=== PATIENT | female | born 1965 | race Caucasian/White ===

== ENCOUNTER 2020-04-20 11:09 | Outpatient (REF) | payer OTHER, SELFPAY ==
[2020-04-20 11:11] VITALS: BP 156/99; PULSE 76; RESP 17; TEMP 36.2; O2SAT 99; BMI 34.5
--- NOTE | 2020-04-20 11:34 | RAD_ITS ---
STUDY: X-RAY - RIGHT HAND, ATTENTION SECOND FINGER REASON FOR EXAM: Smashed right second finger with slight hammer, laceration at DIP joint. TECHNIQUE: 3 view(s) of the finger were obtained. COMPARISON: None. FINDINGS: Normal metacarpal head. Normal metacarpophalangeal joint. Normal proximal phalanx. Normal middle phalanx. Normal distal phalanx. Normal proximal interphalangeal joint. There are marginal osteophytes and joint space narrowing of the distal interphalangeal joint. There is a laceration and soft tissue swelling at the radial aspect of the distal interphalangeal joint. RAD/Finger(s) Min 2 Views IMPRESSION: Arthrosis of the distal interphalangeal joint. Soft tissue injury. No demonstrated fracture. Electronically Signed: Jacob Flores MD at 12:00 EDT Tel , Service support ,
--- NOTE | 2020-04-20 11:36 | ED.VISSUMM ---
- ER Visit Summary Date of Service: 04/20/20 Chief Complaint: Right index finger laceration History of Present Illness: The patient is a 54 F who presents with right index finger injury that occurred today. Patient got her finger caught between a sledgehammer and a steel post. Patient states her pain is worse with movement. Patient describes her pain as throbbing and burning. Patient denies any paresthesias or weakness. Patient states her last tetanus was approximately 4 years ago. Patient denies any other injuries. Patient states the bleeding stopped after several minutes of pressure. Physical Examination: Vital signs are stable. Patient is afebrile. Patient is in no acute distress. Musculoskeletal exam reveals a 2 cm full-thickness linear laceration over the radial aspect of the right index finger over the DIP joint area. There is minimal gapping of the wound margins. There are no foreign bodies visualized. There is some mild tenderness over the middle phalanx but there is no tenderness over the distal phalanx. Sensation was intact light touch in all digits. Capillary refill was less than 2 seconds in all digits. Range of motion was slightly limited in flexion and extension of the DIP and PIP joint secondary to pain. Test Results: X-rays of the right index finger were obtained. There is no acute fracture. There are degenerative changes noted. This was interpreted by the radiologist and reviewed by myself. Emergency Department Course and Treatment: The wound was cleaned and irrigated with copious amounts of normal saline. The wound was anesthetized with 1% plain lidocaine via digital block and locally. The wound was closed with 6 simple interrupted #4-0 nylon sutures under sterile technique. Patient tolerated the procedure well. Bacitracin dressing was applied. Patient was instructed to keep the wound clean and dry. Patient was instructed to follow-up with her primary care physician in 7 days for wound recheck and suture removal. Patient understood and was agreeable with the plan. All questions were answered. Disposition: Discharge home Impression: Right index finger laceration This note was generated with [employer] dictation software. It may contain incorrect words, spelling, and punctuation that were not noted in review of the chart prior to signing ED Disposition - Plan for ED Patient: Disposition: Home or Assisted Living Diagnosis: Laceration of right index finger w/o foreign body w/o damage to nail Instructions: ED Laceration Hand Referrals: Dread Cedillo MD [Primary Care Provider] - 7 Days for suture removal
[2020-04-20] MEDS: BACITRACIN 15 GM Tube 1 APPLIC TOPICAL (11:51)
== END 2020-04-20 13:23 | disposition home or self-care (01) ==
LOC: ED 11:09
PROVIDERS: PCP Family Medicine; Visit Provider Emergency Medicine
DX: S61.210A Laceration without foreign body of right index finger without damage to nail, initial encounter (principal); W23.0XXA Caught, crushed, jammed, or pinched between moving objects, initial encounter; Y93.89 Activity, other specified; Y92.89 Other specified places as the place of occurrence of the external cause; Y99.0 Civilian activity done for income or pay
CPT/HCPCS: 12001; 73140

== ENCOUNTER → 2021-07-01 12:41 | Outpatient (CLI) | payer OTHER, SELFPAY ==
--- NOTE | 2021-07-01 12:44 | CT_ITS ---
STUDY: CT ABDOMEN AND PELVIS WITH CONTRAST REASON FOR EXAM: Female, 55 years old. Diverticulitis, pain RADIATION DOSAGE (If Supplied By Facility): CTDIvol = ( 19.86 ) mGy, DLP = ( 1251.35 ) mGycm TECHNIQUE: Transaxial images were obtained from the dome of the diaphragm to the symphysis pubis without oral contrast. Oral and amp; IV Readi-CAT and amp; 100mL Isovue-370 was administered. Sagittal and coronal images were reconstructed. Individualized dose optimization techniques were used for this CT. COMPARISON: 07/29/2050 FINDINGS: Left basilar platelike atelectasis versus linear scar. Diffuse hepatic steatosis. Unremarkable spleen, pancreas, adrenals, and bilateral kidneys. Gallbladder not seen and likely removed. Prior appendectomy. Bowel loops nonobstructed. Sigmoid diverticula noted with no CT evidence of acute diverticulitis. No free air or free fluid. No adenopathy. Vascular constipation with no abdominal aortic aneurysm. Status post left anterolateral lower abdominal wall hernia repair. Sections through the pelvis demonstrate evidence of prior hysterectomy. The urinary bladder is incompletely distended. Multilevel thoracolumbar spondylosis noted. L4 is a limbus vertebra. 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 CT/Abdomen/Pelvis WITH Contrast IMPRESSION: Distal colonic diverticulosis. No acute diverticulitis. Diffuse hepatic steatosis Electronically Signed: Scott Galan MD at 17:14 EST Tel , Service support ,
== END ==
PROVIDERS: PCP Family Medicine; Referring Provider Family Medicine; Visit Provider Family Medicine
DX: K57.92 Diverticulitis of intestine, part unspecified, without perforation or abscess without bleeding (principal); R19.8 Other specified symptoms and signs involving the digestive system and abdomen
CPT/HCPCS: 74177; Q9967

== ENCOUNTER 2021-09-03 11:26 | Day surgery (SDC) | payer SELFPAY ==
[2021-09-03] VITALS (7 sets, daily range): BP systolic 124–143; BP diastolic 64–99; PULSE 54–73; RESP 16–18; TEMP 36.2–37; O2SAT 98–100; BMI 33.8
[2021-09-03] MEDS: Lactated Ringers 1,000 ML 15 ML IV (12:04)
--- NOTE | 2021-09-03 12:30 | COLBX_PTH ---
PATIENT: CLEMENTE JENNINGS LOC: EN U#:[id number] AGE/SX: 55/F ROOM: RE09/03/[address]: Dr. Juwan Simms DO : 1965 BED: DIS: 09/03/2021 SPEC #: [id number] RECD: 09/03/21 20:20 STATUS: KELI JARROD #: [id number] BRANDI: 09/03/21 12:[address]: Juwan Simms DEPT: SURGICAL PATHOLOGY RECD BY: Linh Kaur ENTERED: 09/04/21 09:33 SP TYPE: COLON BX OT DR: Dr. Dread Cedillo MD Tissues: A - Small intestine biopsy B - COLON BIOPSY C - Transverse colon Procedures: Surgery Specimen Level IV HEADER OPERATION: Colonoscopy ? open access (MAC) PRE-OP DIAGNOSIS: Screening TISSUE SUBMITTED: A ? Small bowel biopsy, B ? Random colonic biopsy, C ? Transverse colon polyp biopsy MICROSCOPIC DIAGNOSIS A. Small bowel, biopsy: Fragments of small intestinal mucosa, no pathologic diagnosis. B. Colon, random biopsy: Fragments of colonic mucosa, no pathologic diagnosis. C. Transverse colon polyp, biopsy: Tubular adenoma. KEVIN:cuong 09/05/2021 MICROSCOPIC DESCRIPTION Slides are reviewed. GROSS DESCRIPTION A - Received in fixative is one container labeled with the patient's name and designated small bowel biopsy. The specimen consists of two irregular fragments of light bailey soft tissue that in aggregate measure 0.6 x 0.3 x 0.1 cm. The specimen is totally submitted in one cassette. B - Received in fixative is one container labeled with the patient's name and designated random colon biopsy. The specimen consists of multiple irregular fragments of light bailey soft tissue that in aggregate measure 2.5 x 1 x 0.1 cm. The specimen is totally submitted in one cassette. C - Received in fixative is one container labeled with the patient's name and designated transverse colon polyp biopsy. The specimen consists of one irregular fragment of light bailey soft tissue that measures 0.3 x 0.2 x 0.1 cm. The specimen is totally submitted in one cassette. / KEVIN:cuong 09/04/2021 TC:5 CPT: 05435 x3
--- NOTE | 2021-09-03 12:49 | PCM.HP.BLA ---
History and Physical Date of Admission: 09/03/21 55 y/o F w/ PMHx: GERD, Obesity, Prior Tobacco use history, Diverticulosis, Anxiety and Depression who presents for a a colonoscopy. She is not have any abdominal pain. She does have a past medical history of diverticulosis and does get intermittent constipation. She is not having any problems at this time. She does not have any nausea. She is not having any chest pain or shortness of breath. Overall she is in very good health. Past Medical History Past Medical History (Chronic Problems): Chronic Problems Anxiety and depression (Chronic) Obesity (BMI 30.0-34.9) (Chronic) GERD (gastroesophageal reflux disease) (Chronic) Allergies codeine Allergy morphine Allergy phenazopyridine HCl sulfamethoxazole trimethoprim Other Surgical History: - - Surgeries have included tonsillectomy, hysterectomy, surgery for adhesions w/ partial colon resection per patient report, 2 back surgeries, ankle surgery, 3-4 exploratory laparotomies. 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 Denies: Fever, Weight Change HEENT: Denies: Head Aches, Sinus Congestion, Sinus Drainage Cardiovascular: Denies: Chest Pain, Palpitations Respiratory: Denies: Cough, Shortness of breath at rest, Sputum production Gastrointestinal: Reports: Abdominal Pain, Constipation, Diarrhea, Nausea, Vomiting Genitourinary: Denies: Dysuria Musculoskeletal: Denies: Joint Pain, Joint Tenderness Skin: Denies: Rash, Wounds Neurological: Denies: Numbness, Tingling, Focal weakness Psychiatric: Denies: Anxiety, Depression, Homicidal Ideations, Suicidal Ideations Hematologic/ Lymphatic: Denies: Easy Bruising, Easy Bleeding Physical Examination: General: awake, alert, oriented x 3 and cooperative, seated upright in ED bed, no acute distress. Skin: normal color, turgor, no icterus, cyanosis. HEENT: AT/NC, EOMI, PERRLA, mildly dry MM, no carotid bruits or JVD noted. Lungs: CTA BL, normal effort, decreased mild BL bases, no W/C/R. Heart: Regular rate and rhythm; no gallop, rub audible. Abdomen: soft, obese, Extremities: no cyanosis, clubbing, or edema. Neurological: patient awake, alert, oriented x 3; Psychiatric: affect appears normal, no acute evidence of depressive or anxiety feelings. Assessment and plan: 55-year-old arrives here for colonoscopy. She was explained alternatives, risk, benefits including not withstanding bleeding, infection, sepsis, perforation, need for emergency or . She have an ASA of 1.
--- NOTE | 2021-09-03 13:33 | OP.COLON_ITS ---
Patient Name: Renetta Plaza Procedure Date: 09/03/2021 12:45 PM Date of : 1965 Age: 55 Procedure: Colonoscopy Indications: Chronic diarrhea Providers: Juwan Simms DO Medicines: See the Anesthesia note for documentation of the administered medications Patient Profile: This is a 55 year old female. Refer to note in patient chart for documentation of history and physical. Last Colonoscopy: several years ago. Complications: No immediate complications. Procedure: Pre-Anesthesia Assessment: - Prior to the procedure, a History and Physical was performed, and patient medications and allergies were reviewed. The patient is competent. The risks and benefits of the procedure and the sedation options and risks were discussed with the patient. All questions were answered and informed consent was obtained. Patient identification and proposed procedure were verified by the physician. Mental Status Examination: normal. Airway Examination: normal oropharyngeal airway and neck mobility. Respiratory Examination: clear to auscultation. CV Examination: normal. Prophylactic Antibiotics: The patient does not require prophylactic antibiotics. Prior Anticoagulants: The patient has taken no previous anticoagulant or antiplatelet agents. After reviewing the risks and benefits, the patient was deemed in satisfactory condition to undergo the procedure. The anesthesia plan was to use moderate sedation / analgesia (conscious sedation). Immediately prior to administration of medications, the patient was re-assessed for adequacy to receive sedatives. The heart rate, respiratory rate, oxygen saturations, blood pressure, adequacy of pulmonary ventilation, and response to care were monitored throughout the procedure. The physical status of the patient was re-assessed after the procedure. After I obtained informed consent, the scope was passed under direct vision. Throughout the procedure, the patient's blood pressure, pulse, and oxygen saturations were monitored continuously. The pediatric colonoscope was introduced through the anus and advanced to the ileocolonic anastomosis. The colonoscopy was performed without difficulty. The patient tolerated the procedure well. The quality of the bowel preparation was good. Moderate Sedation: Moderate (conscious) sedation was administered by the endoscopy nurse and supervised by the endoscopist. The following parameters were monitored: oxygen saturation, heart rate, blood pressure, and response to care. Total physician intraservice time was 15 minutes. Scope In: 12:58:45 PM Scope Out: 1:17:32 PM Total Procedure Duration Time 0 hours 18 minutes 47 seconds Findings: There was evidence of a prior end-to-side ileo-colonic anastomosis in the ascending colon. This was patent and was characterized by healthy appearing mucosa. The anastomosis was traversed. Biopsies were taken with a cold forceps for histology. Verification of patient identification for the specimen was done. Estimated blood loss was minimal. An area of mildly congested mucosa was found in the sigmoid colon, in the descending colon, in the transverse colon and at the hepatic flexure. Biopsies were taken with a cold forceps for histology. Verification of patient identification for the specimen was done. Estimated blood loss was minimal. A 5 mm polyp was found in the transverse colon. The polyp was sessile. The polyp was removed with a hot snare. Resection and retrieval were complete. Verification of patient identification for the specimen was done. Estimated blood loss was minimal. Impression: - Patent end-to-side ileo-colonic anastomosis, characterized by healthy appearing mucosa. Biopsied. - Congested mucosa in the sigmoid colon, in the descending colon, in the transverse colon and at the hepatic flexure. Biopsied. - One 5 mm polyp in the transverse colon, removed with a hot snare. Resected and retrieved. Recommendation: - Repeat colonoscopy in 5 years for surveillance based on pathology results. - Return to GI office in 2 weeks. - Continue present medications. - - Use Colestipol at [1gm] [PO] [BID] [60 days]. Procedure Code(s): --- Professional --- 61041, Colonoscopy, flexible; with removal of tumor(s), polyp(s), or other lesion(s) by snare technique 76132, 59, Colonoscopy, flexible; with biopsy, single or multiple 10000, 59, Moderate sedation services provided by the same physician or other qualified health dog day care attendant performing the diagnostic or therapeutic service that the sedation supports, requiring the presence of an independent trained observer to assist in the monitoring of the patient's level of consciousness and physiological status; initial 15 minutes of intraservice time, patient age 5 years or older CPT copyright 2017 [employer]. All rights reserved. The codes documented in this report are preliminary and upon medical biller/coder review may be revised to meet current compliance requirements. Juwan Simms DO 09/03/2021 1:32:40 PM This report has been signed electronically. Number of Addenda: 1 Note Initiated On: 09/03/2021 12:45 PM Addendum Number: 1 Addendum Date: 04/24/2022 6:14:53 AM MAC was used instead of moderate sedation for the patient. Juwan Simms, 04/24/2022 6:14:57 AM This report has been signed electronically.
--- NOTE | 2021-09-03 13:33 | OP.CCLET_ITS ---
04/24/2022 Dread Cedillo Re : Colonoscopy procedure for Renetta Plaza Dear Nguyen This procedure was performed on Friday, September 03, 2021. My impressions and recommendations are as follows: Impressions : - Patent end-to-side ileo-colonic anastomosis, characterized by healthy appearing mucosa. Biopsied. - Congested mucosa in the sigmoid colon, in the descending colon, in the transverse colon and at the hepatic flexure. Biopsied. - One 5 mm polyp in the transverse colon, removed with a hot snare. Resected and retrieved. Recommendations : - Repeat colonoscopy in 5 years for surveillance based on pathology results. - Return to GI office in 2 weeks. - Continue present medications. - - Use Colestipol at [1gm] [PO] [BID] [60 days]. My findings are described in the full procedure note, which is enclosed. If I can be of further assistance, please feel free to contact me at . Sincerely, Juwan Simms, 09/03/2021 1:32:40 PM This report has been signed electronically.
--- NOTE | 2021-09-03 14:06 | SUR.PHASEII ---
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
== END 2021-09-03 23:59 | disposition home or self-care (01) ==
LOC: EN 11:27 → AC 11:28
PROVIDERS: PCP Family Medicine; Referring Provider Family Medicine; Visit Provider Internal Medicine Gastroenterology
PROC: 0DJD8ZZ Inspection of Lower Intestinal Tract, Via Natural or Artificial Opening Endoscopic (ICD-10-PCS; CPT 45378; principal; 2021-09-03 12:25)
DX: Z12.11 Encounter for screening for malignant neoplasm of colon (principal); D12.3 Benign neoplasm of transverse colon; Z87.891 Personal history of nicotine dependence; M19.90 Unspecified osteoarthritis, unspecified site; Z87.19 Personal history of other diseases of the digestive system; G25.81 Restless legs syndrome; Z90.49 Acquired absence of other specified parts of digestive tract; K21.9 Gastro-esophageal reflux disease without esophagitis; K52.9 Noninfective gastroenteritis and colitis, unspecified
CPT/HCPCS: 45385; 45380; 87426; 88305; J7120; J2405

== ENCOUNTER 2021-11-27 11:44 | Emergency (ER) | payer SELFPAY ==
[2021-11-27 11:45] VITALS: BP 140/102; PULSE 176; RESP 16; TEMP 35.9; O2SAT 97; BMI 33.5
[2021-11-27] MEDS: Adenosine 6 MG/2 ML Syringe IV (11:50)
--- NOTE | 2021-11-27 11:51 | NURSING ---
1150 6 mg adenosine given with return to NSR 92 BPM 121/93 13 94% room air Dr. Gilman at bedside along w/ RT medic and 2 RNs
--- NOTE | 2021-11-27 11:59 | EKG12_ITS ---
Test Reason : REPEAT Blood Pressure : / mmHG Vent. Rate : 098 BPM Atrial Rate : 098 BPM P-R Int : 122 ms QRS Dur : 086 ms QT Int : 330 ms P-R-T Axes : -24 -21 187 degrees QTc Int : 421 ms Normal sinus rhythm Normal ECG Confirmed by ASHLYN GARCIA, WILLIE ([id number]), development editor ABEL MISHRA ([id number]) on 11/29/2021 12:55:00 P M Referred By: YENY Confirmed By:BRANDON GOLDBERG MD
[2021-11-27 12:00] VITALS: BP 145/78; PULSE 82; RESP 11; O2SAT 92
--- NOTE | 2021-11-27 12:00 | EKG12_ITS ---
Test Reason : PALPS Blood Pressure : / mmHG Vent. Rate : 169 BPM Atrial Rate : 174 BPM P-R Int : 000 ms QRS Dur : 080 ms QT Int : 278 ms P-R-T Axes : 000 -30 230 degrees QTc Int : 466 ms Supraventricular tachycardia Left axis deviation Marked ST abnormality, possible lateral subendocardial injury Abnormal ECG Confirmed by ASHLYN GARCIA, WILLIE ([id number]), marketing editor ABEL MISHRA ([id number]) on 11/29/2021 12:55:15 P M Referred By: YENY Confirmed By:BRANDON GOLDBERG MD
[2021-11-27 12:11] LABS: Absolute Lymphocyte Count 4.19 X10^3/uL (0.83-4.51); Basophil# 0.03 X10^3/uL; Basophil% 0.3 % (0-1); Eosinophil# 0.16 X10^3/uL; Eosinophils% 1.8 % (0-5); Hematocrit 44.5 % (37-47); Hemoglobin 14.7 g/dL (12.0-15.0); Lymphocyte # 4.19 X10^3/ul (0.83-4.51); Lymphocyte % 46.1 % (19-41); Mean Corpuscular Hgb 30.4 pg (27.0-32.0); Mean Corpuscular Volume 92.1 fL (81-99); Mean Platelet Vol. 9.6 fl (6.2-12.0); Monocyte% 7.7 % (0-10); NRBC Flagged by Analyzer 0 % (0-5); Neutrophil # 3.98 X10^3/uL (2.7-7.7); Neutrophil % 43.9 % (47-70); Platelet Count 342 K/mm3 (150-450); RBC Distribution Width CV 13.2 % (11.6-14.6); RBC Distribution Width SD 44.4 fl (35.1-43.9); Red Blood Count 4.83 M/mm3 (4.2-5.4); White Blood Count 9.1 K/mm3 (4.4-11.0)
--- NOTE | 2021-11-27 12:24 | EX.ED.DYSGE1 ---
HPI History of Present Illness Chief Complaint: Palpitations Informant: patient Narrative Narrative: Patient presents from hospital [facility] sudden onset of lightheadedness and palpitations while eating. No syncopal episodes. No chest pain. She has had intermittent palpitations for the past 2 years however it has been more frequent over the last 2 months having it every 2 weeks the last time was 2 weeks ago. She saw her PCP has a scheduled follow-up with Dr. Lindo, also has a planned Holter monitor. No diagnosed dysrhythmias in the past. She denies any recent cough, denies recent vomiting or diarrhea. She does not take any daily medicines states occasional multivitamins. Prior similar symptoms: Yes PFSH PFSH Medical History Anxiety Arthritis Back pain Back pain Cancer Cardiology follow-up encounter Chest pain Encounter for screening for malignant neoplasm of colon Former smoker Heartburn History of diverticulitis History of IBS History of palpitations History of rheumatic fever History of ulceration Hx of fracture of ankle Laceration of right index finger w/o foreign body w/o damage to nail Leg cramps Migraine headache Neck pain Restless legs Shortness of breath on exertion Wears dentures Wears glasses Home Medications hyoscyamine sulfate 0.125 mg sublingual tablet 0.125 mg PO BID-QID PRN #30 tab 09/24/21 [Rx Last Taken Unknown] Allergy/AdvReac Type Severity Reaction Status Date / Time morphine Allergy Anaphylaxis Verified 11/27/21 11:57 phenazopyridine HCl Allergy Other Verified 11/27/21 11:57 [From Pyridium] sulfamethoxazole Allergy Other Verified 11/27/21 11:57 [From Septra] trimethoprim [From Septra] Allergy Other Verified 11/27/21 11:57 Family History Mother Diabetes Heart disease Surgical History History of ankle surgery History of back surgery History of cholecystectomy History of colonoscopy History of exploratory laparotomy History of partial hysterectomy Hx of appendectomy Hx of colonoscopy Hx of hernia repair Hx of hysterectomy, total Hx of lumbar discectomy Hx of tonsillectomy Social History Smoking Status: Former smoker ROS ROS ED Constitutional Constitutional ED: Denies chills, fever(s) or sweats Eyes Eyes: Denies change in vision ENT ENT ED: Denies dysphagia or sore throat Cardiovascular Cardiovascular: Reports palpitations; Denies chest pain, leg edema or racing heartbeat Respiratory/Chest Respiratory/Chest: Denies cough, dyspnea or dyspnea on exertion Gastrointestinal Gastrointestinal: Denies abdominal pain, diarrhea, nausea or vomiting Genitourinary Genitourinary ED: Denies dysuria, hematuria or urinary frequency Musculoskeletal Musculoskeletal: Denies back pain, extremity pain or neck pain Integumentary Denies rash or wounds Neurologic Neurologic: Denies headache(s), paresthesias or weakness EXAM Physical Exam Const Vital Signs: 11/27/21 11:45 11/27/21 12:00 11/27/21 13:26 Temperature 96.6 F L Temperature Source Temporal Pulse Rate 176 H 82 80 Respiratory Rate 16 11 L 18 Blood Pressure 140/102 H 145/78 H 139/69 H Blood Pressure Mean 114 100 Pulse Ox 97 92 99 Oxygen Delivery Method Room Air Room Air Positive well nourished and well developed General Appearance ED: well developed and NAD HEENT Reports moist mucous membranes normocephalic and atraumatic Eyes PERRL, EOMs intact bilaterally and conjunctivae normal General Eye ED: Yes normal appearance of both eyes Neck no lymphadenopathy and supple General: Negative for tenderness Chest Wall Chest: Negative for tenderness Resp normal respiratory effort and normal air movement Effort and Inspection: symmetric chest movement; Negative for respiratory distress Cardio regular rhythm and no murmurs Rate: tachycardic Peripheral Pulses: pulses 2+ throughout GI normal to inspection, nondistended, normoactive bowel sounds and non-tender Palpation: Negative for guarding or rebound tenderness present Back/Spine no CVA tenderness and no thoracic nor lumbar tenderness Extremity normal to inspection General Extremety ED: Negative for edema or tenderness General Extremity: Negative for edema Neuro oriented x3 and no sensory deficits noted Sensorium / Orientation: awake and alert Skin no rashes or lesions noted and no wounds MDM MDM MDM Narrative Medical decision making narrative: Patient presenting with tachycardia narrow complex on the monitor, confirming concerns for SVT on EKG. Attempted Valsalva maneuvers bedside with no success. AP defibrillator pads were placed, she was given 6 mg of Adenocard, observe she cardioverted back into normal sinus rhythm confirmed by EKG. She had ST depression lateral leads with SVT likely demand ischemia which resolved. Patient lab work with electrolytes are all normal. Remains asymptomatic. Back to normal. I discussed with on-call financial health counselor Dr. Mclean, states would be no difference if beta-jennyfer was started due to SVT rhythm. No medications are to be started at this time. She did not need a Holter monitor at this time. She will keep her follow-up with Dr. Lindo as an outpatient. Return precautions discussed. All questions were answered. Lab Data Attestation: I reviewed the patient's lab results. Labs: Laboratory Results - last 24 hr 11/27/21 11/27/21 11:45 11:45 WBC 9.1 RBC 4.83 Hgb 14.7 Hct 44.5 MCV 92.1 MCH 30.4 MCHC 33.0 RDW Std Deviation 44.4 H RDW Coeff of Robi 13.2 Plt Count 342 MPV 9.6 Immature Gran % (Auto) 0.200 Neut % (Auto) 43.9 L Lymph % (Auto) 46.1 H Dubois % (Auto) 7.7 Eos % (Auto) 1.8 Baso % (Auto) 0.3 Absolute Neuts (auto) 4.0 Absolute Lymphs (auto) 4.19 Nucleated RBC % 0 Sodium 139 Potassium 3.8 Chloride 106 Carbon Dioxide 28.0 Anion Gap 5 BUN 16 Creatinine 1.02 Estim Creat Clear Calc 62.83 Est GFR (MDRD) Af Amer 72 Est GFR (MDRD) Non-Af 59 L BUN/Creatinine Ratio 15.7 Glucose 104 Calcium 9.2 Magnesium 2.2 TSH 1.42 EKG Initial EKG: Attestation: I personally reviewed and interpreted this EKG as follows: Comments: SVT rate of [address] or T wave changes. Follow-up EKG: Attestation: I personally reviewed and interpreted this EKG as follows: Comments: Sinus rhythm rate of 98, no ST or T wave changes. Discharge Plan Triage Chief Complaint: Palpitations ED Provider: Nuno Gilman Dx/Rx/DC Orders Clinical Impression: SVT (supraventricular tachycardia), Encounter for cardioversion procedure, Palpitation Instructions: ED Understanding Supraventricular Tachycardia (SVT), Supraventricular Tachycardia Prescriptions: No Action hyoscyamine sulfate [Levsin/SL] 0.125 mg tablet, sublingual 0.125 mg PO BID-QID PRN (Reason: dyspepsia) Qty: 30 RF: 1 Primary Care Provider: Dread Cedillo Referrals: Fredis Lindo MD [STAFF PHYSICIAN] - Keep Radha appointment Dread Cedillo MD [Primary Care Provider] - Activity Restrictions/Additional Instructions: You had SVT on EKG converted with 6 mg of adenosine. Your labs are all normal. Keep your follow-up with Dr. Lindo. Disposition Disposition: Home, Self Care Discharge Date/Time: 11/27/21 13:27
[2021-11-27 12:32] LABS: Anion Gap 5 (5-15); BUN 16 mg/dL (7-18); BUN/Creat Ratio 15.7 RATIO (10-20); Calcium,Total 9.2 mg/dL (8.5-10.1); Chloride 106 mmol/L (98-107); Creatinine, Serum 1.02 mg/dL (0.55-1.02); EST Glomerular Filtration Rate 59 mL/min (>60); Est Glom Filt Rate - Afr Amer 72 mL/min (>60); Estimated Creatinine Clearance 62.83 ml/min; Glucose 104 mg/dL (74-106); Magnesium 2.2 mg/dL (1.6-2.6); Potassium 3.8 mmol/L (3.5-5.1); Sodium Level 139 mmol/L (136-145); Thyroid Stim Hormone (TSH) 1.42 uIU/mL (0.358-3.74)
[2021-11-27 13:26] VITALS: BP 139/69; PULSE 80; RESP 18; O2SAT 99
== END 2021-11-27 13:27 | disposition home or self-care (01) ==
PROVIDERS: Emergency Provider Emergency Medicine; PCP Family Medicine; Visit Provider Emergency Medicine
DX: I47.1 Supraventricular tachycardia (principal); R00.2 Palpitations; M19.90 Unspecified osteoarthritis, unspecified site; Z87.891 Personal history of nicotine dependence; Z87.19 Personal history of other diseases of the digestive system
CPT/HCPCS: 80048; 83735; 84443; 85025; 93005; 96374; 99285; A4216; J0153

== ENCOUNTER → 2021-12-30 | Outpatient (CLI) | payer SELFPAY ==
--- NOTE | 2021-12-30 06:05 | ECHOD_ITS ---
Reason For Study: Arrhythmia Procedure This was a 2D Doppler, Color Flow transthoracic echocardiogram. The exam was of adequate technical quality. Exam performed in department. Left Ventricle Normal LV size. Left ventricular systolic function is normal. The estimated ejection fraction is 65 %. No evidence for diastolic dysfunction. No regional wall motion abnormalities noted. Right Ventricle Normal RV size. Normal systolic function. Atria Normal left atrium. Normal right atrium. No doppler evidence for ASD. Mitral Valve There is no mitral annular calcification. Normal mitral valve. Mild (1+) mitral valve insufficiency. Tricuspid Valve Normal tricuspid valve. Mild tricuspid valve insufficiency. Right ventricular systolic pressure estimated to be 29 mmHg. Aortic Valve Trisinus/trileaflet aortic valve. Mild focal aortic valve calcification. Pulmonic Valve The pulmonic valve is not well visualized. Great Vessels Normal sized aortic root. Pericardium/Pleural No pericardial effusion. MMode/2D Measurements & Calculations LVIDd: 4.7 cm IVSd: 1.00 cm Ao root diam: 3.3 cm LVIDs: 2.7 cm LVPWd: 0.93 cm RVDd: 2.2 cm FS: 43.0 % LAV(MOD-bp): 33.7 ml LVAd ap4: 22.1 cm2 SV(MOD-sp4): 36.7 ml LAV(MOD-bp) Indexed: 15.9 ml/m2 LVLd ap4: 7.2 cm LAV(MOD-sp2): 29.6 ml EDV(MOD-sp4): 55.5 ml LAV(MOD-sp4): 36.8 ml EDV(sp4-el): 57.3 ml LVAs ap4: 11.2 cm2 LVLs ap4: 5.5 cm ESV(MOD-sp4): 18.8 ml ESV(sp4-el): 19.2 ml EF(MOD-sp4): 66.2 % EF(sp4-el): 66.5 % SV(sp4-el): 38.1 ml LA A4 area: 15.7 cm2 LA dimension(2D): 3.7 cm RA A4 area: 10.7 cm2 Doppler Measurements & Calculations MV E max ubaldo: 81.2 cm/sec Lat Peak E' Ubaldo: 10.6 cm/sec Med Peak E' Ubaldo: 6.1 cm/sec MV A max ubaldo: 93.6 cm/sec E/E' lat: 7.7 E/E' med: 13.4 MV E/A: 0.87 Ao V2 max: 143.4 cm/sec LV V1 max: 97.0 cm/sec PA V2 max: 101.6 cm/sec Ao max P.2 mmHg LV V1 max P.8 mmHg Ao V2 mean: 106.8 cm/sec Ao mean P.9 mmHg Ao V2 VTI: 35.6 cm TR max ubaldo: 255.8 cm/sec TR max P.2 mmHg ECHO/Echo Complete Interpretation Summary Left ventricular systolic function is normal. The estimated ejection fraction is 65 %. Mild (1+) mitral valve insufficiency. Mild tricuspid valve insufficiency. Mild focal aortic valve calcification. Right ventricular systolic pressure estimated to be 29 mmHg. No evidence for diastolic dysfunction. Ordering Physician: Fredis Lindo Referring Physician: Dread Cedillo Performed By: Kitty De, IMELDA, RVT
--- NOTE | 2021-12-30 08:05 | STRESSREP ---
Stress Test Report Date: 12-30-2021 Procedure: Pharmacologic stress nuclear imaging study Indications: Chest pain; SVT Consent: Per the patient Procedure: The patient underwent pharmacologic (Regadenoson 0.4mg ) evaluation with a peak heart rate of 90 beats per minute (55%predicted maximal heart rate) and a peak blood pressure of 128/80 mmHg. The baseline ECG demonstrated sinus bradycardia; low voltage QRS; poor R wave progression. The peak pharmacologic ECG demonstrated no obvious ECG changes. There was an isolated PVC during infusion. There was no complaint of chest discomfort during pharmacologic infusion or recovery. The examination was discontinued secondary to completion of protocol. Impression: 1. Pharmacologic (Regadenoson) evaluation 2. Peak pharmacologic ECG with no obvious ECG changes. 3. There was an isolated PVC during infusion. 4. Nuclear images pending Myocardial perfusion imaging study: Technique: The patient was injected with 14.6 millicuries of technetium 99m Cardiolite and subsequently rest SPECT Cardiolite nuclear imaging was obtained in the horizontal long, vertical long, and short axis views. The patient underwent pharmacologic (Regadenoson) evaluation with a peak heart rate of 90 beats per minute (55% percent predicted maximal heart rate) and a peak blood pressure of 128/80 mmHg. The patient was injected with 44.3 millicuries of technetium 99m Cardiolite and subsequently stress SPECT Cardiolite nuclear imaging was obtained in the horizontal long, vertical long, and short axis views. A gated Cardiolite study at peak stress was obtained. Interpretation: Rest and stress SPECT Cardiolite nuclear imaging status post realignment, normalization, and attenuation correction demonstrate relative uniform tracer uptake and myocardial perfusion appearing within normal limits. There is end systolic thickening and brightening. The gated Cardiolite study demonstrates myocardial thickening and inward wall motion. The reported LVEF is 63%. Impression: 1. Rest and stress SPECT Cardiolite nuclear imaging demonstrate relative uniform tracer uptake and myocardial perfusion appearing within normal limits. 2. The gated Cardiolite study reports an LVEF of 63%. This note was generated with Niblitzation software. It may contain incorrect words, spelling, and punctuation that were not noted in checking the note before signing.
== END | disposition home or self-care (01) ==
LOC: CVS 06:04
PROVIDERS: PCP Family Medicine; Visit Provider Internal Medicine Cardiovascular Disease
DX: R07.9 Chest pain, unspecified (principal); I47.1 Supraventricular tachycardia; R00.2 Palpitations
CPT/HCPCS: 78452; 93017; 93306; A9500; A4216; J2785

== ENCOUNTER → 2022-01-22 | Outpatient (CLI) | payer SELFPAY ==
[2022-01-22 14:01] LABS: Hematocrit 39.7 % (37-47); Hemoglobin 13.3 g/dL (12.0-15.0); Mean Corp Hgb Conc 33.5 g/dL (32-36); Mean Corpuscular Hgb 31.3 pg (27.0-32.0); Mean Corpuscular Volume 93.4 fL (81-99); Mean Platelet Vol. 9.5 fl (6.2-12.0); Platelet Count 287 K/mm3 (150-450); RBC Distribution Width CV 12.9 % (11.6-14.6); RBC Distribution Width SD 44.3 fl (35.1-43.9); Red Blood Count 4.25 M/mm3 (4.2-5.4); White Blood Count 5.9 K/mm3 (4.4-11.0)
[2022-01-22 14:34] LABS: Anion Gap 6 (5-15); BUN 19 mg/dL (7-18); BUN/Creat Ratio 18.1 RATIO (10-20); Calcium,Total 9.2 mg/dL (8.5-10.1); Chloride 104 mmol/L (98-107); Creatinine, Serum 1.05 mg/dL (0.55-1.02); EST Glomerular Filtration Rate 57 mL/min (>60); Est Glom Filt Rate - Afr Amer 69 mL/min (>60); Glucose 107 mg/dL (74-106); Magnesium 2.1 mg/dL (1.6-2.6); Potassium 3.7 mmol/L (3.5-5.1); Sodium Level 137 mmol/L (136-145); Thyroid Stim Hormone (TSH) 1.11 uIU/mL (0.358-3.74)
== END | disposition home or self-care (01) ==
LOC: LAB 13:41
PROVIDERS: PCP Family Medicine; Referring Provider Nurse Practitioner Family; Visit Provider Nurse Practitioner Family
DX: I47.1 Supraventricular tachycardia (principal); R00.2 Palpitations; R06.02 Shortness of breath; G47.00 Insomnia, unspecified; R53.83 Other fatigue
CPT/HCPCS: 36415; 80048; 83735; 84436; 84443; 85027

== ENCOUNTER → 2022-01-24 | Outpatient (CLI) | payer SELFPAY | END | disposition home or self-care (01) | LOC: PSN 09:07 | PROVIDERS: PCP Family Medicine; Referring Provider Nurse Practitioner Family; Visit Provider Nurse Practitioner Family | DX: I47.1 Supraventricular tachycardia (principal); R06.02 Shortness of breath; R53.83 Other fatigue; R00.2 Palpitations | CPT/HCPCS: 93225; 93226 ==

== ENCOUNTER → 2022-06-26 | Outpatient (CLI) | payer SELFPAY ==
--- NOTE | 2022-06-26 07:28 | RAD_ITS ---
STUDY: X-RAY - PELVIS REASON FOR EXAM: Female, 56 years old. Pelvic pain. TECHNIQUE: One view of the pelvis was obtained. COMPARISON: None. FINDINGS: There is a non-specific bowel gas pattern. Postsurgical changes in the mid pelvis, left lower abdomen and right mid abdomen. Mild arthrosis of both sacroiliac joints. Normal visualized bilateral superior and inferior pubic rami. Normal pubic symphysis. Normal ischial tuberosities. Mild arthrosis of both hips. RAD/Pelvis 1 or 2 Views IMPRESSION: Mild arthrosis of the sacroiliac joints and both hips. No acute abnormality, evidence of erosive changes or fusion. Electronically Signed: Jovon Aguilera, at 9:41 EST ,
--- NOTE | 2022-06-26 07:35 | RAD_ITS ---
STUDY: X-RAY - LEFT FEMUR REASON FOR STUDY: Female, 56 years old. Left pelvic and hip pain. TECHNIQUE: 4 view(s) of the femur. COMPARISON: None. FINDINGS: Normal visualized femur. Mild arthrosis of the left hip and the medial and lateral femorotibial compartments. Small knee joint effusion. RAD/Femur Min 2 Views IMPRESSION: Mild arthrosis of the hip and knee with small knee joint effusion. No acute abnormality or erosive changes. Electronically Signed: Jovon Aguilera, at 9:43 EST ,
== END | disposition home or self-care (01) ==
LOC: RAD 07:27
PROVIDERS: PCP Family Medicine; Visit Provider Internal Medicine Gastroenterology
DX: K40.90 Unilateral inguinal hernia, without obstruction or gangrene, not specified as recurrent (principal); R10.9 Unspecified abdominal pain; M25.551 Pain in right hip
CPT/HCPCS: 72170; 73552

== ENCOUNTER → 2023-06-24 | Outpatient (CLI) | payer OTHER, SELFPAY ==
--- NOTE | 2023-06-24 09:44 | US_ITS ---
STUDY: ABDOMINAL ULTRASOUND - RIGHT UPPER QUADRANT; ELASTOGRAPHY REASON FOR VISIT: Female, 57 years old. NAFLD. TECHNIQUE: Ultrasound evaluation of the right upper quadrant was performed with real-time and static heart-scale imaging. Point quantification shear wave elastography was performed (Sara Campbell). TECHNICAL QUALITY: Adequate. COMPARISON: Comparison is made with prior examination July 16, 2013. FINDINGS: Liver: The liver measures 15.4 cm. There is increased echogenicity consistent with fatty infiltration. The bile ducts are within normal limits. There is hepatic color flow. The direction of portal flow is hepatopetal. There is no demonstrated mass lesion. Median liver stiffness measured 7.2 kPa. Gallbladder: The patient is status post cholecystectomy. Common Bile Duct (C.B.D.): The common bile duct measures 5.4 mm. Pancreas: There is increased echogenicity of the pancreas. There is no demonstrated pancreatic mass or cyst. Right Kidney: Normal size of the right kidney. The right kidney measures 9.8 cm x 5.4 cm x 4.8 cm. Normal renal cortex. The right cortex measures 1.2 cm. There is no demonstrated renal mass or cyst. There is no right hydronephrosis. US/ABD Limited w/ Elastography IMPRESSION: 1. Liver stiffness measures 7.2 kPa compatible with F2-F3 (Mild to moderate liver fibrosis) Metavir score. Electronically Signed: Asaf Madden MD at 15:17 EST ,
== END | disposition home or self-care (01) ==
LOC: US 09:41
PROVIDERS: PCP Nurse Practitioner Family; Referring Provider Internal Medicine Gastroenterology; Visit Provider Internal Medicine Gastroenterology
DX: K76.0 Fatty (change of) liver, not elsewhere classified (principal)
CPT/HCPCS: 76705; 76981

== ENCOUNTER → 2023-07-01 | Outpatient (CLI) | payer OTHER, SELFPAY ==
[2023-07-01 13:07] LABS: Anion Gap 7 (5-15); BUN 17 mg/dL (7-18); BUN/Creat Ratio 19.8 RATIO (10-20); Calcium,Total 8.7 mg/dL (8.5-10.1); Chloride 106 mmol/L (98-107); Creatinine, Serum 0.86 mg/dL (0.55-1.02); EST Glomerular Filtration Rate 72 mL/min (>60); Est Glom Filt Rate - Afr Amer 87 mL/min (>60); Glucose 117 mg/dL (74-106); Sodium Level 142 mmol/L (136-145)
== END | disposition home or self-care (01) ==
LOC: LAB 11:10
PROVIDERS: PCP Nurse Practitioner Family; Referring Provider Nurse Practitioner Family; Visit Provider Nurse Practitioner Family
DX: I10 Essential (primary) hypertension (principal)
CPT/HCPCS: 36415; 80048

== ENCOUNTER → 2023-11-17 | Outpatient (CLI) | payer OTHER, SELFPAY ==
--- NOTE | 2023-11-17 11:30 | RAD_ITS ---
INDICATION: Sciatica, right side EXAMINATION/TECHNIQUE: X-RAY - XR Spine Lumbar Min 4 Views COMPARISON: No relevant prior comparison study available FINDINGS: VERTEBRAE: Preserved vertebral body height. No fracture. No spondylolisthesis. Preservation of the normal lumbar lordosis. Mild facet arthropathy throughout. DISCS: Disc space narrowing at the lower lumbar spine with endplate osteophytes present throughout. INCLUDED ABDOMEN: Included bowel gas pattern is non-obstructive. Suture line over the right iliac region. RAD/L/S Spine Min 4 Views IMPRESSION: No evidence of lumbar spinal fracture or spondylolisthesis. Mild diffuse degenerative change. Electronically Signed: Deangelo Conklin MD at 7:00 EDT ,
== END | disposition home or self-care (01) ==
LOC: RAD 11:26
PROVIDERS: PCP Nurse Practitioner Family; Referring Provider Nurse Practitioner Family; Visit Provider Nurse Practitioner Family
DX: M54.31 Sciatica, right side (principal)
CPT/HCPCS: 72110

== ENCOUNTER → 2024-01-13 | Outpatient (CLI) | payer OTHER, SELFPAY ==
--- NOTE | 2024-01-13 15:17 | MRI_ITS ---
EXAM: MR LUMBAR SPINE WITHOUT INTRAVENOUS CONTRAST CLINICAL INDICATION: RT SIDED SCIATICA, LUMBAR DISC BULGE/HERNIATION TECHNIQUE: Multiplanar and multisequence MR images of the lumbar spine without intravenous contrast. COMPARISON: No relevant prior studies available. FINDINGS: VERTEBRAE: Deformity of the anterior superior portion of the L4 vertebral body consistent with limbus vertebra. Schmorl node noted along the superior endplate of L2. Endplate deformity of the anterior portion of S1 which may be related to remote trauma. Vertebral body heights are otherwise fairly well-maintained. SPINAL CORD: Normal. Normal position and signal intensity of the conus medullaris. SOFT TISSUES: Normal. DISCS/SPINAL CANAL/NEURAL FORAMINA: L1-L2: No significant disc space narrowing. Mild disc bulging causes minor impression on the thecal sac. No spinal or neural foraminal stenosis. L2-L3: Normal. Normal disc height and morphology. Normal spinal canal and lateral recesses. Normal neuroforamina. L3-L4: Mild disc space narrowing. Mild disc bulging, ligamentous hypertrophy and facet arthropathy results in minimal narrowing of the spinal canal. Intact neural foramina. L4-L5: Disc space narrowing. No central disc herniation. No spinal stenosis. Mild narrowing of the right neural foramina related to posterolateral disc protrusion. L5-S1: Normal disc height and morphology. Normal spinal canal and lateral recesses. Normal neuroforamina. MRI/Spine Lumbar (Routine) IMPRESSION: 1. Minor compression of thecal sac at L3-4 related to disc bulging, ligamentous hypertrophy and facet arthropathy. 2. Mild right L4-5 neural foraminal narrowing related to disc protrusion. Electronically Signed: Dav Landon MD at 10:15 EDT ,
== END | disposition home or self-care (01) ==
LOC: MRI 15:10
PROVIDERS: PCP Nurse Practitioner Family; Referring Provider Nurse Practitioner Family; Visit Provider Nurse Practitioner Family
DX: M54.31 Sciatica, right side (principal); M54.50 Low back pain, unspecified
CPT/HCPCS: 72148

== ENCOUNTER 2024-03-01 00:13 | Emergency (ER) | payer OTHER, SELFPAY ==
[2024-03-01] VITALS (9 sets, daily range): BP systolic 126–140; BP diastolic 78–87; PULSE 70–198; RESP 8–28; TEMP 36.4–36.6; O2SAT 96–99; BMI 31.1
--- NOTE | 2024-03-01 00:33 | RAD_ITS ---
INDICATION: palpitations EXAMINATION/TECHNIQUE: X-RAY - XR Chest 2 Views COMPARISON: No relevant prior comparison study available FINDINGS: LINES/DEVICES: None. LUNGS: No consolidation, edema or effusion. No pneumothorax. MEDIASTINUM AND CARDIOVASCULAR STRUCTURES: Cardiac silhouette not enlarged. Central airways and mediastinal contour are unremarkable. BONES AND SOFT TISSUES: Unremarkable. RAD/Chest PA and Lateral IMPRESSION: No radiographic evidence of acute cardiopulmonary disease. Electronically Signed: Hi García MD at 1:02 EDT ,
--- NOTE | 2024-03-01 00:33 | EKG12_ITS ---
Test Reason : DYSRHYTHMIA Blood Pressure : / mmHG Vent. Rate : 082 BPM Atrial Rate : 082 BPM P-R Int : 136 ms QRS Dur : 080 ms QT Int : 378 ms P-R-T Axes : -21 -29 028 degrees QTc Int : 441 ms Normal sinus rhythm Low voltage QRS Cannot rule out Inferior infarct , age undetermined Abnormal ECG Confirmed by ASHLYN GARCIA, WILLIE ([id number]), editor sound JEREMIAH CRUZ ([id number]) on 03/02/2024 10:01:52 AM Referred By: LAUREANO Confirmed By:BRANDON GOLDBERG MD
[2024-03-01 00:46] LABS: Absolute Lymphocyte Count 4.87 X10^3/uL (0.83-4.51); Absolute Neutrophil Count 5.6 X10^3/uL (2.0-7.7); Basophil# 0.04 X10^3/uL; Basophil% 0.3 % (0-1); Eosinophil# 0.15 X10^3/uL; Eosinophils% 1.3 % (0-5); Hematocrit 44.4 % (37-47); Hemoglobin 14.5 g/dL (12.0-15.0); Lymphocyte # 4.87 X10^3/ul (0.83-4.51); Lymphocyte % 42.3 % (19-41); Mean Corp Hgb Conc 32.7 g/dL (32-36); Mean Corpuscular Hgb 30.7 pg (27.0-32.0); Mean Corpuscular Volume 93.9 fL (81-99); Mean Platelet Vol. 9.7 fl (6.2-12.0); Monocyte# 0.87 X10^3/uL; Monocyte% 7.6 % (0-10); NRBC Flagged by Analyzer 0 % (0-5); Neutrophil # 5.56 X10^3/uL (2.7-7.7); Neutrophil % 48.3 % (47-70); Platelet Count 351 K/mm3 (150-450); RBC Distribution Width CV 13.1 % (11.6-14.6); RBC Distribution Width SD 44.9 fl (35.1-43.9); Red Blood Count 4.73 M/mm3 (4.2-5.4); White Blood Count 11.5 K/mm3 (4.4-11.0)
[2024-03-01] MEDS: 0.9% Normal Saline (1000mL) 1,000 ML 999 ML IV (00:50)
[2024-03-01 01:08] LABS: Anion Gap 6 (5-15); BUN 26 mg/dL (7-18); BUN/Creat Ratio 25.2 RATIO (10-20); Calcium,Total 9.1 mg/dL (8.5-10.1); Chloride 105 mmol/L (98-107); Creatinine, Serum 1.03 mg/dL (0.55-1.02); EST Glomerular Filtration Rate 58 mL/min (>60); Est Glom Filt Rate - Afr Amer 70 mL/min (>60); Glucose 95 mg/dL (74-106); Magnesium 2.3 mg/dL (1.6-2.6); Potassium 3.9 mmol/L (3.5-5.1); Sodium Level 139 mmol/L (136-145); Thyroid Stim Hormone (TSH) 4.82 uIU/mL (0.358-3.74)
--- NOTE | 2024-03-01 02:01 | EDS_ITS ---
HPI History of Present Illness Chief Complaint: Palpitations Informant: patient Narrative Narrative: Patient is a 58-year-old female with history of hypertension as well as paroxysmal supraventricular tachycardia. 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 She states that there was no excessive stimulant use or illicit drug use. She states she waited for about 10 minutes to see if the symptoms would resolve and they did not do so. She states she started to get lightheaded and dizzy and feel like she was almost about to pass out and therefore presents to the ER for evaluation. [facility] Medical History Chest pain in adult SVT (supraventricular tachycardia) Palpitations Wears glasses Wears dentures Cancer Anxiety Restless legs Back pain Migraine headache History of ulceration History of IBS History of diverticulitis Heartburn Former smoker Shortness of breath on exertion Leg cramps Cardiology follow-up encounter History of rheumatic fever History of palpitations Chest pain Hx of fracture of ankle Encounter for screening for malignant neoplasm of colon Neck pain Arthritis Laceration of right index finger w/o foreign body w/o damage to nail Home Medications ?Medication ?Instructions ?Recorded ?Last Taken ?Type lisinopril 10 mg tablet 10 mg PO DAILY #30 tabs 06/19/23 Unknown Rx Allergy/AdvReac Type Severity Reaction Status Date / Time morphine Allergy Anaphylaxis Verified 04/29/23 07:57 phenazopyridine HCl (From Allergy Other Verified 04/29/23 07:57 Pyridium) sulfamethoxazole (From Allergy Other Verified 04/29/23 07:57 Septra) trimethoprim (From Septra) Allergy Other Verified 04/29/23 07:57 metoprolol AdvReac Severe confusion, Verified 04/29/23 07:57 severe fatigue Family History Mother Diabetes Heart disease Surgical History History of ankle surgery History of back surgery History of cholecystectomy History of colonoscopy History of exploratory laparotomy History of partial hysterectomy Hx of appendectomy Hx of colonoscopy Hx of hernia repair Hx of hysterectomy, total Hx of lumbar discectomy Hx of tonsillectomy Social History Smoking Status: Former smoker how long ago did patient quit smokin alcohol intake: never substance use type: does not use caffeine: Yes Type: coffee Number of servings: 2 ROS ROS ED Constitutional Constitutional ED: Denies chills or fever(s) Eyes Eyes: Denies blurry vision or change in vision ENT ENT ED: Denies sore throat Cardiovascular Cardiovascular: Reports chest pain, palpitations, racing heartbeat and other Details: Positive near syncope Respiratory/Chest Respiratory/Chest: Denies cough or dyspnea Gastrointestinal Gastrointestinal: Denies abdominal pain, diarrhea, nausea or vomiting Genitourinary Genitourinary ED: Denies dysuria Musculoskeletal Musculoskeletal: Denies myalgias Integumentary Denies rash Neurologic Neurologic: Denies headache(s) Hematologic/Lymphatic Hematologic/Lymphatic: Denies easy bleeding or easy bruising EXAM Physical Exam Const Vital Signs: 03/01/24 00:14 03/01/24 00:26 03/01/24 00:27 Temperature 97.6 F L Temperature Source Oral Pulse Rate 198 H 76 76 Respiratory Rate 28 H 18 14 Blood Pressure 126/79 H 140/84 H Blood Pressure Mean 94 102 Pulse Ox 98 97 98 Oxygen Delivery Method Room Air Room Air 03/01/24 00:30 03/01/24 00:30 03/01/24 00:45 Temperature Temperature Source Pulse Rate 75 74 Respiratory Rate 16 10 L Blood Pressure 132/87 H 132/87 H Blood Pressure Mean 98 98 Pulse Ox 98 96 Oxygen Delivery Method 03/01/24 01:00 03/01/24 01:15 03/01/24 02:19 Temperature 97.9 F Temperature Source Pulse Rate 70 71 70 Respiratory Rate 8 L 13 19 H Blood Pressure 137/78 H 138/80 H Blood Pressure Mean 96 99 Pulse Ox 99 99 99 Oxygen Delivery Method 03/01/24 02:20 Temperature Temperature Source Pulse Rate Respiratory Rate 19 H Blood Pressure Blood Pressure Mean Pulse Ox Oxygen Delivery Method Positive well nourished and well developed General Appearance ED: well developed; Negative for pallor HEENT HEENT Narrative: Normocephalic atraumatic Eyes PERRL and EOMs intact bilaterally General Eye ED: Negative for pale conjunctiva or scleral icterus Neck supple Resp normal respiratory effort and clear to auscultation bilaterally Cardio regular rate and regular rhythm Rate: other Other Details: No murmurs rubs or gallops noted Radial and carotid pulses equal and symmetric GI normal to inspection, nondistended, normoactive bowel sounds, non-tender and non-distended GI Narrative: No voluntary guarding or rigidity or pulsatile mass Auscultation: normoactive bowel sounds Palpation: soft Extremity normal to inspection Extremity Narrative: No asymmetric edema no pitting edema negative Homans' sign bilaterally Neuro oriented x3, CN's II-XII intact bilaterally and no sensory deficits noted Sensorium / Orientation: alert Motor Exam: strength 5/5 throughout Psych mental status grossly normal Skin no rashes or lesions noted General Skin Exam: Negative for jaundice or pallor MDM MDM MDM Narrative Medical decision making narrative: Patient arrived to the ER tachycardic at almost 200 bpm which does correlate with her history of SVT. However the time the EKG was obtained patient has spontaneously converted to normal sinus rhythm. In order to ensure that there was not a other reason for her paroxysmal SVT such as acute blood loss anemia acute kidney injury or electrolyte abnormality I did elect to perform basic laboratory testing. Lab work revealed no clinically significant findings. Patient remained in normal sinus rhythm for the entire ER stay. Therefore this time with lab work revealing no clinically significant abnormalities and the fact the patient has remained in normal sinus rhythm for entire ER stay do not feel this warrants admission and she can follow-up on an outpatient basis History & Record Review Discussion w/independent historian: Patient Lab Data Attestation: I reviewed the patient's lab results. Labs: Laboratory Results - last 24 hr 03/01/24 00:17 WBC 11.5 H RBC 4.73 Hgb 14.5 Hct 44.4 MCV 93.9 MCH 30.7 MCHC 32.7 RDW Std Deviation 44.9 H RDW Coeff of Robi 13.1 Plt Count 351 MPV 9.7 Immature Gran % (Auto) 0.200 Neut % (Auto) 48.3 Lymph % (Auto) 42.3 H Davidson % (Auto) 7.6 Eos % (Auto) 1.3 Baso % (Auto) 0.3 Absolute Neuts (auto) 5.6 Absolute Lymphs (auto) 4.87 H Nucleated RBC % 0 Sodium 139 Potassium 3.9 Chloride 105 Carbon Dioxide 28.0 Anion Gap 6 BUN 26 H Creatinine 1.03 H Estim Creat Clear Calc 67.00 Est GFR (MDRD) Af Amer 70 Est GFR (MDRD) Non-Af 58 L BUN/Creatinine Ratio 25.2 H Glucose 95 Calcium 9.1 Magnesium 2.3 TSH 4.82 H Radiography Diagnostic Testing: Clinical Impression(s) from Imaging Studies Chest X-Ray 03/01/24 00:33 IMPRESSION: No radiographic evidence of acute cardiopulmonary disease. Electronically Signed: Hi García MD at 1:02 EDT , Chest x-ray as interpreted by the emergency medicine physician reveals no acute infiltrate pneumothorax or pleural effusion Discharge Plan Triage Chief Complaint: Palpitations ED Provider: Kaden Barajas Dx/Rx/DC Orders Clinical Impression: SVT (supraventricular tachycardia), Essential hypertension, GERD (gastroesophageal reflux disease), Anxiety and depression Instructions: ED Understanding Supraventricular Tachycardia (SVT) Prescriptions: No Action lisinopril 10 mg tablet 10 mg PO DAILY Qty: 30 11RF Primary Care Provider: Kitty Boland Referrals: Kitty Boland, COVER[facility] SPECIALIST[facility] [Primary Care Provider] - Activity Restrictions/Additional Instructions: Please talk to your family doctor about a referral to a EP/commercial collections specialist to discuss if you may need an ablation secondary to your intermittent episodes of SVT. Return to the ER should you have any further concerns Print Language: Georgian Disposition Disposition: Home, Self Care Discharge Date/Time: 03/01/24 02:20
== END 2024-03-01 02:20 | disposition home or self-care (01) ==
PROVIDERS: Emergency Provider Emergency Medicine; PCP Nurse Practitioner Family; Visit Provider Emergency Medicine
DX: I47.10 Supraventricular tachycardia, unspecified (principal); I10 Essential (primary) hypertension; K21.9 Gastro-esophageal reflux disease without esophagitis; F32.A Depression, unspecified; Z87.891 Personal history of nicotine dependence; F41.9 Anxiety disorder, unspecified; R07.9 Chest pain, unspecified
CPT/HCPCS: 71046; 80048; 83735; 84443; 85025; 93005; 96360; 99283; J7030; A4216

== ENCOUNTER → 2024-07-26 | Outpatient (CLI) | payer OTHER, SELFPAY ==
--- NOTE | 2024-07-26 14:09 | BI_ITS ---
MAMMOGRAPHY - BILATERAL SCREENING REASON FOR EXAM: Female, 58 years old. Routine annual screening examination. PERTINENT HISTORY: Non-contributory. TECHNIQUE: Digital bilateral breast arely (3D mammographic acquisition) in the CC and MLO projections. 2-D mediolateral oblique (MLO) and craniocaudad (CC) views of both breasts were obtained. CAD: Full Field Digital Mammography with Computer Added Detection was performed. COMPARISON: None. Baseline examination. FINDINGS: Breast Composition: The breasts are heterogeneously dense, which may obscure small masses. There are no dominant masses or suspicious calcifications. Bilateral fat containing axillary lymph nodes. No other significant abnormalities are identified. There has been no significant change since the prior study. BI/SCRN MAMM (CAD)W/ARELY BILAT IMPRESSION: Negative screening mammogram. Yearly followup mammogram recommended. (A) ASSESSMENT CATEGORY: BIRADS Category 2: Benign. A letter regarding these results will be sent to the patient by the facility within 30 days. Approximately 10% of breast cancers are not detected by mammography. A normal mammogram should not delay biopsy of a clinically suspicious abnormality. [id number] Electronically Signed: Asaf Madden MD at 15:12 EST ,
== END | disposition home or self-care (01) ==
LOC: OPBI 14:06
PROVIDERS: PCP Nurse Practitioner Family; Referring Provider Nurse Practitioner Family; Visit Provider Nurse Practitioner Family
DX: Z12.31 Encounter for screening mammogram for malignant neoplasm of breast (principal)
CPT/HCPCS: 77063; 77067

== ENCOUNTER → 2024-08-24 | Outpatient (CLI) | payer OTHER, SELFPAY ==
--- NOTE | 2024-08-24 14:13 | RAD_ITS ---
STUDY: X-RAY - LEFT FOOT CLINICAL: Female, 58 years old. R/O FX TECHNIQUE: 3 views of the left foot. COMPARISON: None. FINDINGS: Normal talus, calcaneus, and tarsal bones. Normal visualized subtalar, talonavicular, calcaneocuboid, tarsal and tarsometatarsal articulations. Normal metatarsi. There is mild degenerative arthrosis of the metatarsophalangeal joint of the hallux. Normal tibial and fibular sesamoid bones. Normal interphalangeal joint of the great toe. Normal phalanges of the great toe. Normal second through fifth metatarsophalangeal joints. Normal interphalangeal joints and phalanges of the lesser toes. The soft tissue structures are unremarkable. There is no demonstrated acute fracture. RAD/Foot min 3 Views IMPRESSION: Mild degenerative arthrosis of the first MTP joint. No demonstrated acute fracture. Electronically Signed: Rene Garcia MD at 16:02 EST ,
== END | disposition home or self-care (01) ==
PROVIDERS: PCP Nurse Practitioner Family; Referring Provider Nurse Practitioner Family; Visit Provider Nurse Practitioner Family
DX: M79.672 Pain in left foot (principal)
CPT/HCPCS: 73630

== ENCOUNTER → 2024-08-31 | Outpatient (CLI) | payer OTHER, SELFPAY ==
--- NOTE | 2024-08-31 07:15 | US_ITS ---
STUDY: ABDOMINAL ULTRASOUND - RIGHT UPPER QUADRANT; ELASTOGRAPHY REASON FOR VISIT: Female, 58 years old. NAFLD TECHNIQUE: Ultrasound evaluation of the right upper quadrant was performed with real-time and static heart-scale imaging. Point quantification shear wave elastography was performed ([employer]). TECHNICAL QUALITY: Adequate. COMPARISON: Comparison is made with prior study June 24, 2023. FINDINGS: Liver: The liver measures 15 cm. There is increased echogenicity consistent with fatty infiltration. The bile ducts are within normal limits. There is hepatic color flow. The direction of portal flow is hepatopetal. There is no demonstrated mass lesion. Median liver stiffness measured 6.2 kPa. Gallbladder: The patient is status post cholecystectomy. Common Bile Duct (C.B.D.): The common bile duct measures 3 mm. Pancreas: There is normal echogenicity of the visualized pancreas. There is no demonstrated pancreatic mass or cyst. Right Kidney: Normal size of the right kidney. The right kidney measures 10.7 cm x 5.5 cm x 4.2 cm. Normal renal cortex. The right cortex measures 1.2 cm. There is no demonstrated renal mass or cyst. There is no right hydronephrosis. US/ABD Limited w/ Elastography IMPRESSION: 1. Liver stiffness measures 6.2 kPa compatible with F2-F3 (Mild to moderate liver fibrosis) Metavir score. Electronically Signed: Asaf Madden MD at 12:20 EST ,
== END | disposition home or self-care (01) ==
LOC: US 07:15
PROVIDERS: PCP Nurse Practitioner Family; Referring Provider Internal Medicine Gastroenterology; Visit Provider Internal Medicine Gastroenterology
DX: K76.0 Fatty (change of) liver, not elsewhere classified (principal)

== ENCOUNTER → 2024-09-16 | Outpatient (CLI) | payer OTHER, SELFPAY ==
--- NOTE | 2024-09-16 13:56 | VDLE_ITS ---
Reason For Study: Pain BLE RIGHT LEFT CFV is compressible, spontaneous, phasic, CFV is compressible, spontaneous, phasic, competent and demonstrates normal competent, and demonstrates normal augmentation. augmentation. FV is compressible, spontaneous, phasic, FV is compressible, spontaneous, phasic, competent and demonstrates normal competent and demonstrates normal augmentation. augmentation. POP V is compressible, spontaneous, phasic, POP V is compressible, spontaneous, phasic, competent and demonstrates normal competent and demonstrates normal augmentation. augmentation. T/P Trunk is compressible. T/P Trunk is compressible. PTV is compressible. PTV is compressible. RT PerV is compressible. LT PerV is compressible. SFJ is INCOMPETENT and measures 0.52cmx 0.55 SFJ is competent and measures 0.48cm x 0.48 cm. cm. GSV proximal thigh measures 0.41cm x 0.43 cm. GSV proximal thigh measures 0.74cm x 0.81 cm. GSV at knee measures 0.34cm x 0.41 cm. GSV at knee measures 0.43cm x 0.46 cm. GSV INCOMPETENT throughout for greater than GSV above knee is INCOMPETENT for greater 0.5 seconds. than 0.5 seconds. SSV mid calf is INCOMPETENT for greater than GSV below knee is competent. 0.5 seconds and measures 0.15cm x 0.18 cm. SSV mid calf is INCOMPETENT for greater than ASV distal thigh is INCOMPETENT for greater 0.5 seconds and measures 0.15cm x 0.16 cm. than 0.5 seconds and measures 0.44cm x 0.35 ASV mid thigh is INCOMPETENT for greater than cm. 0.5 seconds and measures 0.50cm x 0.44 cm. ASV proximal calf is INCOMPETENT for greater ASV proximal calf is INCOMPETENT for greater than 0.5 seconds and measures 0.31cm x 0.35 than 0.5 seconds and measures 0.53cm x 0.63 cm. cm. Procedure ASV mid calf is INCOMPETENT for greater than This is a venous duplex using B-mode, color 0.5 seconds and measures 0.16cm x 0.20 cm. flow and spectral Doppler. Exam performed in department. Patient was scanned in reverse Trendelenburg position during reflux assessment. A preliminary report was called and/or faxed to Marina DAVIS. VL/Venous Duplex US - Maurizio Extrem Interpretation Summary Deep veins of the bilateral lower extremities are patent and compressible segme ntally. There is no evidence of bilateral lower extremity deep vein thrombosis. The bilateral great saphenous veins appear patent and compressible segmentally. Positive for reflux in the right saphenofemoral junction, great saphenous vein throughout, accessory saphenous vein in distal thigh, accessory saphenous vein in proximal calf. Positive for reflux in the left great saphenous vein above the knee, accessory saphenous vein in the mid thigh, accessory saphenous vein in the proximal calf, accessory saphenous v ein in the mid calf, small saphenous vein. Ordering Physician: Marina Huertas Referring Physician: Kitty Boland Performed By: Kitty De, RDCS, RVT
== END | disposition home or self-care (01) ==
LOC: CVS 13:54
PROVIDERS: PCP Nurse Practitioner Family; Referring Provider Physician Assistant; Visit Provider Physician Assistant
DX: I83.93 Asymptomatic varicose veins of bilateral lower extremities (principal); M79.652 Pain in left thigh
CPT/HCPCS: 93970

== ENCOUNTER → 2024-10-24 | Outpatient (CLI) | payer OTHER, SELFPAY ==
--- NOTE | 2024-10-24 17:45 | US_ITS ---
PROCEDURE: HEAD/NECK SOFT TISSUE REASON FOR EXAM: NECK MASS TECHNIQUE: Ultrasound targeted to the palpable abnormality at the right knee. COMPARISON: None. FINDINGS: Ill-defined hypoechoic 2.3 x 0.8 cm right lateral neck soft tissue abnormality. This contains some calcification. By report, there is a palpable abnormality. US/Head/Neck Soft Tissue IMPRESSION: Indeterminate ultrasound right neck mass with corresponding palpable abnormalit y. Malignancy not excluded. Further evaluation is advised with contrast enhanced neck CT. Reading Location: [id number]
== END | disposition home or self-care (01) ==
LOC: US 17:42
PROVIDERS: PCP Nurse Practitioner Family; Referring Provider Nurse Practitioner Family; Visit Provider Nurse Practitioner Family
DX: M79.89 Other specified soft tissue disorders (principal)
CPT/HCPCS: 76536

== ENCOUNTER → 2024-11-04 | Outpatient (CLI) | payer OTHER, SELFPAY ==
--- NOTE | 2024-11-04 06:39 | CT_ITS ---
PROCEDURE: CT of the neck with IV contrast. 11/04/2024 REASON FOR EXAM: Assess right neck soft tissue mass. Abnormal neck ultrasound. TECHNIQUE: After the administration of 99 cc Isovue 370 IV contrast, contiguous axial CT images were obtained through the neck. Sagittal and coronal reformats were created. One or more dose reduction techniques were used (e.g., Automated exposure control, adjustment of the mA and/or kV according to patient size, use of iterative reconstruction technique). RADIATION DOSE SUMMARY: DLP: 527.55 mGycm COMPARISON: Ultrasound of the neck 10/24/2024. FINDINGS: Bones are osteopenic with degenerative changes in the spine. There is severe degenerative disc disease at C5-6. Posterior disc osteophyte complex at C5-6 causes moderate central spinal canal narrowing. There is multilevel neural foraminal narrowing in the cervical spine, to a severe degree bilaterally at C5-6. The included upper lungs and central airway are clear. No upper mediastinal mass or adenopathy. There are bilateral low-attenuation thyroid nodules, the largest at the inferior margin left thyroid lobe measuring 2 cm. The included upper breast tissue and included portions of the brain show no specific abnormality. Paranasal sinuses and mastoid air cells are clear. No discrete mucosal lesion of the pharynx/larynx. The vocal cords and epiglottis are unremarkable. No peritonsillar or retropharyngeal fluid collection. The orbits and globes are intact. A region of interest marker is present at the lateral skin surface of the right side of the neck image [address] images, near the level of the mid to inferior mandible. The major salivary glands are unremarkable. No dominant solid neck mass or adenopathy. CT/Soft Tissue Neck WITH Contrast IMPRESSION: No dominant solid neck mass or adenopathy. There is no focal CT abnormality of the subcutaneous fat or soft tissues deep to the region of interest marker of the right side of the neck. If there is persisten t palpable or ultrasound abnormality, excisional biopsy or ultrasound-guided biopsy may be considered for definitive histologic diagnosis. Bilateral low-attenuation thyroid nodules, the largest inferiorly on the left a t 2 cm. Recommend short-term follow-up dedicated thyroid ultrasound. Reading Location: [facility]
== END | disposition home or self-care (01) ==
LOC: CT 06:37
PROVIDERS: PCP Nurse Practitioner Family; Referring Provider Nurse Practitioner Family; Visit Provider Nurse Practitioner Family
DX: M79.89 Other specified soft tissue disorders (principal)
CPT/HCPCS: 70491; Q9967

== ENCOUNTER → 2024-11-14 | Outpatient (CLI) | payer OTHER, SELFPAY ==
--- NOTE | 2024-11-14 13:06 | US_ITS ---
PROCEDURE: THYROID 11/14/2024 REASON FOR EXAM: 59-year-old female, NONTOXIC MULTINODULAR GOITER TECHNIQUE: Thyroid ultrasound COMPARISON: CT neck 11/04/2024, focused ultrasound of the neck 10/24/2024. FINDINGS: Right thyroid lobe measures 5.3 x 2.2 x 1.4 cm. Left thyroid lobe measures 5.3 x 2.0 x 1.7 cm. Isthmus thickness is0.2 cm. Thyroid Size: Normal Background Echotexture: Homogeneous Thyroid Nodules: Right TR-2 and left TR 1 thyroid nodules. No suspicious thyroid nodule identified. US/Thyroid IMPRESSION: Unremarkable thyroid ultrasound. Bilateral thyroid nodules which do not meet cr iteria for dedicated follow-up by ACR TI-RADS criteria. Reading Location: [id number]
== END | disposition home or self-care (01) ==
LOC: OPUS 13:05
PROVIDERS: PCP Nurse Practitioner Family; Referring Provider Nurse Practitioner Family; Visit Provider Nurse Practitioner Family
DX: E04.2 Nontoxic multinodular goiter (principal)
CPT/HCPCS: 76536

== ENCOUNTER → 2025-05-10 | Outpatient (CLI) | payer OTHER, SELFPAY ==
--- NOTE | 2025-05-10 06:36 | RAD_ITS ---
EXAM: XR Lumbosacral Spine, 4 or 5 Views CLINICAL INDICATION: BACK PAIN TECHNIQUE: Frontal, lateral and bilateral oblique views of the lumbar spine. COMPARISON: XR Lumbosacral Spine dated 11/17/2023 FINDINGS: VERTEBRAE: Degenerative facet arthropathy throughout the lumbar spine, most prominent in the lower lumbar spine. Normal alignment. No acute fracture or significant dynamic instability. SACRUM/COCCYX: Unremarkable as visualized. No acute fracture. DISC SPACES: Degenerative disc disease throughout the lumbar spine. SOFT TISSUES: Unremarkable. RAD/L/S Spine Min 4 Views IMPRESSION: 1. No acute fracture or significant dynamic instability. 2. If symptoms persist, further evaluation with MRI is recommended. 3. Degenerative changes lumbar spine as described. Reading Location: [id number]
--- OUTSIDE RECORDS SUMMARY | 2025-05-10 06:57 | XMS RPT_ITS | CCD ---
Author Organization [facility] Care Team Providers Care In Store Marketer Name Role Phone Dr. Dread Cedillo Primary Care Provider Dr. Dread Cedillo Referring Provider Nurse, Surgery Attending Provider Unavailable Dr. Juwan Simms Attending Provider Dr. Juwan Simms Other Provider Dr. Madelyn Gilliam Attending Provider Dr. Dread Cedillo Primary Care Provider Dr. Dread Cedillo Referring Provider Dr. Juwan Simms Attending Provider Dr. Fredis Lindo Attending Provider Dr. Fredis Lindo Other Provider Dr. Dread Cedillo Primary Care Provider Dr. Dread Cedillo Referring Provider Dr. Juwan Simms Attending Provider Santino CHIEF BUSINESS DEVELOPMENT OFFICER, CHIEF BUSINESS DEVELOPMENT OFFICER-C Darren Moore Attending Provider Dr. Dread Cedillo Primary Care Provider Unavaila ble Dr. Dread Cedillo Referring Provider Unavailable FriendDr. Echeverria Attending Provider Santino CHIEF BUSINESS DEVELOPMENT OFFICER, CHIEF BUSINESS DEVELOPMENT OFFICER-C Darren Moore Attending Provider Dread Cedillo MD Primary Care Provider [phone] Krystian CHIEF BUSINESS DEVELOPMENT OFFICER-CKitty Primary Care Provider Krystian CHIEF BUSINESS DEVELOPMENT OFFICER-C, Kitty Attending Provider [phone] Krystian CHIEF BUSINESS DEVELOPMENT OFFICER-C, Kitty Referring Provider [phone] Marina Poe Attending Provider Dr. Juwan Simms DO Attending Provider Dr. Juwan Simms DO Referring Provider Marina Poe Referring Provider Ken GARCIA, Dr. Ferreira Attending Provider [phone] TL WALLER Referring Unavailabl e NGUYEN, DREAD BAUM Primary Care Unavailable MONTANEZ KCTL REID Referring Unavailabl e NGUYEN, DREAD BAUM Primary Care Unavailable MONTANEZ KCTL REID Attending Unavailabl e NGUYEN, DREAD BAUM Primary Care Unavailable MONTANEZ KCTL REID Referring Unavailabl e NGUYEN, DREAD BAUM Primary Care Unavailable FRANCISCO, JOHAN Referring Unavailable NGUYEN, DREAD BAUM Primary Care Unavailable FRANCISCO, JOHAN Attending Unavailable MONTANEZ KC, TL Referring Unavailabl e NGUYEN, DREAD BAUM Primary Care Unavailable NGUYEN, DREAD BAUM Primary Care Unavailable MONTANEZ KCTL REID Attending Unavailabl e NGUYEN, DREAD BAUM Primary Care Unavailable Krystian CHIEF BUSINESS DEVELOPMENT OFFICER-C, Kitty Primary Care Provider [phone] Krystian CHIEF BUSINESS DEVELOPMENT OFFICER-C, Kitty Attending Provider Krystian CHIEF BUSINESS DEVELOPMENT OFFICER-C, Kitty Referring Provider Marina Poe Attending Provider Dr. Juwan Simms DO Attending Provider Krystian, Kitty Attending Unavailable Krystian, Kitty Referring Unavailable Krystian, Kitty Primary Care Unavailable Krystian, Kitty Attending Unavailable Krystian, Kitty Referring Unavailable Krystian, Kitty Primary Care Unavailable Krystian, Kitty Primary Care Unavailable Krystian, Kitty Referring Unavailable Krystian, Kitty Attending Unavailable Assessment, Health Risk Attending Unavaila ble Assessment, Health Risk Referring Unavaila ble Krystian, Kitty Primary Care Unavailable Krystian, Kitty Attending Unavailable Krystian, Kitty Referring Unavailable Krystian, Kitty Primary Care Unavailable Krystian, Kitty Referring Unavailable Krystian, Kitty Primary Care Unavailable Juwan Simms Attending Unavailable Marina Huertas Attending Unavailable Krystian, Kitty Referring Unavailable Krystian, Kitty Primary Care Unavailable Friend, Juwan Attending Unavailable Krystian, Kitty Referring Unavailable Krystian, Kitty Primary Care Unavailable Huertas, Marina Referring Unavailable Jhon Rogers Attending Unavailable Krystian, Kitty Primary Care Unavailable Huertas, Marina Attending Unavailable Krystian, Kitty Referring Unavailable Krystian, Kitty Primary Care Unavailable Friend, Juwan Attending Unavailable Friend, Juwan Referring Unavailable Krystian, Kitty Primary Care Unavailable Krystian, Kitty Attending Unavailable Krystian, Kitty Referring Unavailable Krystian, Kitty Primary Care Unavailable Huertas, Marina Attending Unavailable Huertas, Marina Referring Unavailable Krystian, Kitty Primary Care Unavailable Allergies Allergy Classification Reported Allergen(s) Allergy Type Date of Onset Reaction(s) Facility (20 sources) Morphine; Translations: [MORPHINE] Drug Allergy 05-11-20 Anaphylaxis [facility] (13 sources) Phenazopyridine; Translations: [phenazopyridine HCl] Drug Allergy 11-28-19 Other [facility] Comment on above: n/v, felt like she w as "bouncing off shin" (12 sources) Sulfamethoxazole Drug Allergy 11-28-19 Other [facility] Comment on above: n/v, felt like she w as "bouncing off shin" (12 sources) Trimethoprim Drug Allergy 11-28-19 Other [facility] Comment on above: n/v; felt like she w as "bouncing off shin" (7 sources) Metoprolol Drug Allergy 04-29-20 confusion, severe fatigue [facility] (13 sources) Barbiturate; Translations: [BARBITURATES] Propensity to adverse reactions 05-11-20 03 [facility] (13 sources) Sulfonamides (Antibiotic); Translations: [SULFA (SULFONAMIDE ANTIBIOTICS)] Propensity to adverse reactions 05-11-20 03 [facility] (2 sources) Acetominophen 3 [Other] Propensity to adverse reactions 05-11-20 03 [facility] Work Phone: (1 source) OTHER; Translations: [OTHER] Propensity to adverse reactions (disorder) 05-11-20 [facility] (1 source) Metoprolol Drug Allergy 11-16-19 [facility] (1 source) Morphine Drug Allergy 11-16-19 [facility] (1 source) Sulfamethoxazole Drug Allergy 11-16-19 [facility] (1 source) Trimethoprim Drug Allergy 11-16-19 [facility] Repository Medications Current Medications Medication Drug Class(es) Dates Sig (Normalized) Sig (Original) amoxicillin 875 mg / clavulanate 125 mg oral tablet (1 source) Penicillin-class Antibacterial Start: 03-09-2025 Amoxicillin-Pot Clavulanate 875-125 mg tablet Active 1 {tbl} PO Q12H 20 10 March 09, 2025 12:00am March 18, 2025 12:00am bisoprolol fumarate 5 mg oral tablet (15 sources) beta-Adrenergic Yudy Start: 08-30-2024 take 1 tablet by mouth twice daily Bisoprolol Fumarate 5 mg tablet Active 5 mg PO TWICE A DAY August 30, 2024 1:00am Start: 05-09-2024 take 0.5 tablet by m outh twice daily bisoprolol (ZEBETA) 5 mg tablet Indications: SVT (supraventricular tachycardia) (HCC) , Palpitations Take 0.5 tablets by mouth two times a day. 30 tablet 11 05/09/2024 Active Start: 04-06-2024 End: 07-05-2024 take 0.5 tablet by mouth once daily bisoprolol (ZEBETA) 5 mg tablet Indications: SVT (supraventricular tachycardia) (HCC) , Palpitations Take 0.5 tablets by mouth once daily. 15 tablet 2 04/06/2024 05/09/2024 Discontinued gabapentin 300 mg oral capsule (10 sources) Anti-epileptic Agent Start: 01-06-2024 take 1 capsule by mouth once daily gabapentin (NEURONTIN) 300 mg capsule Take 300 mg by mouth once daily. 01/06/2024 Active lisinopril 10 mg oral tablet (20 sources) Angiotensin Converting Enzyme Inhibitor Start: 06-19-2023 End: 08-30-2024 take 1 tablet by mouth once daily Lisinopril 10 mg tablet Active 10 mg PO DAILY 30 August 30, 2024 6:27pm naproxen 500 mg oral tablet (10 sources) Nonsteroidal Anti-inflammatory Drug Start: 04-01-2024 take 1 tablet by mouth twice daily at mealtime naproxen (NAPROSYN) 500 mg tablet Take 500 mg by mouth two times a day with meals. 04/01/2024 Active Completed/Discontinued Medications Medication Drug Class(es) Dates Sig (Normalized) Sig (Original) acetaminophen 325 mg / HYDROcodone bitartrate 7.5 mg oral tablet (20 sources) Opioid Agonist Start: 09-24-2021 End: 10-01-2021 Hydrocodone-Acetami nophen 7.5-325 mg tablet Discontinued 1 {tbl} PO AT BEDTIME as needed for pain 7 7 0 September 24, 2021 September 30, 2021 1:00am October 01, 2021 1:03am Abdominal pain Unspecified abdominal pain Start: 09-24-2021 End: 10-01-2021 take 1 tablet by mouth at bedtime Hydrocodone-Acetaminophen Discontinued 1 TABLET PO AT BEDTIME 7 7 September 24, 2021 October 01, 2021 1:03am Start: 05-28-2015 End: 05-28-2015 Hydrocodone-Acetaminophen 1 TABLET tablet Discontinued 1 {tbl} PO EVERY 6 HOURS NEEDED as needed for Pain 30 0 May 28, 2015 12:00am May 28, 2015 4:59pm Start: 05-28-2015 End: 05-28-2015 take 1 tablet by mouth every six hours as needed Hydrocodone-Acetaminophen Discontinued 1 TABLET PO EVERY 6 HOURS NEEDED May 28, 2015 12:00am May 28, 2015 4:59pm acetaminophen 325 mg / oxyCODONE hydrochloride 5 mg oral tablet (12 sources) Opioid Agonist Start: 07-16-2013 End: 07-22-2013 Oxycodone-Acetaminophen 1 TABLET tablet Discontinued 1 - 2 {tbl} PO EVERY 4 HOURS NEEDED as needed for Pain July 16, 2013 1:00am July 22, 2013 8:41am Start: 07-16-2013 End: 07-22-2013 take 1 tablet by mouth every four hours as needed Oxycodone-Acetaminophen Discontinued 1 - 2 TABLET PO EVERY 4 HOURS NEEDED July 16, 2013 1:00am July 22, 2013 8:41am colestipol hydrochloride 1000 mg oral tablet (12 sources) Bile Acid Sequestrant Start: 09-03-2021 End: 10-03-2021 Colestipol 1 gram tablet Discontinued 1 g PO TWICE A DAY 60 30 0 September 03, 2021 1:00am October 02, 2021 1:00am October 03, 2021 1:03am dicyclomine hydrochloride 10 mg oral capsule (12 sources) Anticholinergic Start: 05-28-2015 End: 05-28-2015 take 1 capsule by mouth three times daily as needed for pain Dicyclomine 10 MG capsule Discontinued 10 mg PO 3 TIMES DAILY NEEDED as needed for Abdominal Pain 20 0 May 28, 2015 3:40pm May 28, 2015 4:59pm hyoscyamine sulfate 0.125 mg sublingual tablet (20 sources) Start: 09-24-2021 End: 03-01-2024 Hyoscyamine Sulfate (Levsin/Sl) 0.125 mg tablet, sublingual Discontinued 0.125 mg PO 2 to 4 times per day as needed for dyspepsia 30 5 June 17, 2023 12:34pm March 01, 2024 1:38am 24 hr metoprolol succinate 25 mg extended release oral tablet (20 sources) beta-Adrenergic Yudy Start: 02-05-2022 End: 11-07-2022 take 1 tablet by mouth twice daily Metoprolol Succinate 25 mg tablet extended release 24 hr Discontinued 25 mg PO TWICE A DAY 180 February 05, 2022 11:21am November 07, 2022 1:36pm Start: 02-05-2022 End: 02-05-2022 Metoprolol Succinate 25 mg t ablet extended release 24 hr Discontinued 50 mg PO DAILY February 05, 2022 10:47am February 05, 2022 11:23am Start: 02-05-2022 End: 02-05-2022 take 50 mg by mouth once daily Metoprolol Succinate Di scontinued 50 MG PO DAILY February 05, 2022 10:47am February 05, 2022 11:23am Start: 12-05-2021 End: 02-05-2022 take 1 tablet by mouth once daily Metoprolol Succinate 25 mg tablet extended release 24 hr Discontinued 25 mg PO DAILY 30 3 December 05, 2021 12:00am February 05, 2022 10:47am predniSONE 20 mg oral tablet (4 sources) Start: 04-01-2024 End: 05-09-2024 take 1 tablet by mouth once daily predniSONE (DELTASONE) 20 mg tablet Take 20 mg by mouth once daily. 04/01/2024 05/09/2024 Discontinued (Course of therapy completed) Problems Active Problems Problem Classification Problem Date Documented Da te Episodic/Chronic Abdominal hernia (20 sources) Inguinal hernia; Translations: [Unilateral inguinal hernia, without obstruction or gangrene, not specified as recurrent] Episodic Abdominal pain (20 sources) Left lower quadrant pain; Translations: [Left lower quadrant pain] Episodic Anxiety disorders (12 sources) Mixed anxiety and depressive disorder; Translations: [Anxiety disorder, unspecified] 07-29-2015 Chronic Cardiac dysrhythmias (20 sources) Supraventricular tachycardia; Translations: [Supraventricular tachycardia] Onset: 4 Chronic Cardiac dysrhythmias (20 sources) Palpitations; Translations: [Palpitations] Onset: 4 Episodic Congestive heart failure; nonhypertensive (2 sources) Congestive heart failure; Translations: [Heart failure, unspecified] Onset: 4 03-14-2024 Chronic Esophageal disorders (14 sources) Gastroesophageal reflux disease; Translations: [Gastro-esophageal reflux disease without esophagitis] Chronic Essential hypertension (7 sources) Essential hypertension; Translations: [Essential (primary) hypertension] 06-19-2023 Chronic Malaise and fatigue (10 sources) Fatigue; Translations: [Other fatigue] 01-22-2022 Episodic Mood disorders (12 sources) Depressive disorder; Translations: [Other specified depressive episodes] Onset: 0 06-11-2010 Chronic Nonspecific chest pain (20 sources) Chest pain; Translations: [Chest pain, unspecified] Onset: 4 Episodic Open wounds of extremities (12 sources) Laceration of finger without foreign body; Translations: [Laceration without foreign body of right index finger without damage to nail, initial encounter] 11-19-2021 Episodic Other gastrointestinal disorders (12 sources) Irritable bowel syndrome; Translations: [Irritable bowel syndrome without diarrhea] Onset: 0 06-11-2010 Chronic Other liver diseases (13 sources) Fatty (change of) liver, not elsewhere classified; Translations: [Nonalcoholic fatty liver disease] Onset: 5 12-15-2022 Chronic Other lower respiratory disease (20 sources) Dyspnea; Translations: [Shortness of breath] Onset: 4 01-22-2022 Episodic Other non-traumatic joint disorders (12 sources) Hip pain; Translations: [Pain in unspecified hip] 11-05-2021 Episodic Other nutritional; endocrine; and metabolic disorders (12 sources) Obese class I; Translations: [Obesity, unspecified] 07-29-2015 Chronic Residual codes; unclassified (10 sources) Insomnia; Translations: [Insomnia, unspecified] 02-05-2022 Episodic Substance-related disorders (12 sources) Tobacco dependence syndrome; Translations: [Nicotine dependence, unspecified, uncomplicated] 07-29-2015 Chronic Thyroid disorders (1 source) Nontoxic multinodular goiter; Translations: [Nontoxic multinodular goiter] Onset: 5 Chronic Unclassified (1 source) Paroxysmal SVT (supraventricular tachycardia) (HCC); Translations: [Paroxysmal SVT (supraventricular tachycardia) (HCC)] Onset: 4 Past or Other Problems Problem Classification Problem Date Documented Da te Episodic/Chronic Other bone disease and musculoskeletal deformities (12 sources) Costal chondritis; Translations: [Chondrocostal junction syndrome [Tietze]] Onset: 01-14-2012 01-14-2012 Episodic Other connective tissue disease (1 source) Other specified soft tissue disorders; Translations: [Other specified soft tissue disorders] Onset: 11-10-2024 Episodic Other connective tissue disease (1 source) Pain in left foot; Translations: [Pain in left foot] Onset: 09-15-2024 Episodic Other injuries and conditions due to external causes (12 sources) Fracture of bone; Translations: [Fracture of unspecified bones] Onset: 05-10-2007 Resolved: 06-11-2010 06-11-2010 Episodic Other injuries and conditions due to external causes (12 sources) Closed fracture; Translations: [Other injury of unspecified body region, initial encounter] Onset: 05-20-2007 Resolved: 06-11-2010 06-11-2010 Episodic Other screening for suspected conditions (not mental disorders or infectious disease) (13 sources) Patient encounter status; Translations: [Encounter for screening for malignant neoplasm of colon] Onset: 08-26-2024 11-19-2021 Episodic Spondylosis; intervertebral disc disorders; other back problems (12 sources) Backache; Translations: [Dorsalgia, unspecified] Onset: 06-11-2010 06-11-2010 Episodic Unclassified (12 sources) ASA CLASS II Onset: 07-06-2003 Resolved: 06-11-2010 06-11-2010 Unclassified (12 sources) [facility] - EKG,LABS, AND OR PENDING Onset: 07-06-2003 Resolved: 06-11-2010 06-11-2010 Varicose veins of lower extremity (10 sources) Varicose veins of lower extremity; Translations: [Asymptomatic varicose veins of bilateral lower extremities] Onset: 10-05-2024 08-30-2024 Episodic Results Test Name Value Interpretation Reference Range Facility Gastroenterology Visit Repor ton 03-09-2025 Gastroenterology Visit Report [facility] [address] [place] [address] OFFICE VISIT Date of Service: 03/09/25 MR#: [id number] Acct: [id number] Name: RENETTA PLAZA ANN Rep #: [id number] 4 : 1965 Provider: Juwan Simms DO Age/Sex: 59/F Location: [facility] Status: Signed Intake Vital Signs 03/01/24 00:14 Height 5 ft 7 in Intake Visit Reasons: 3 M FU Allergies morphine Allergy (Verified 11/15/24 11:06) Anaphylaxis phenazopyridine HCl (From Pyridium) Allergy (Verified 11/15/24 11:06) Other sulfamethoxazole (From Septra) Allergy (Verified 11/15/24 11:06) Other trimethoprim (From Septra) Allergy (Verified 11/15/24 11:06) Other metoprolol Adverse Reaction (Severe, Verified 11/15/24 11:06) confusion, severe fatigue Medications ???Medication ???Instructions ???Recorded ???Confirmed ???Type bisoprolol fumarate 5 mg tablet 5 mg PO BID 08/30/24 03/09/25 Hist ory lisinopril 10 mg tablet 10 mg PO DAILY #30 tabs 08/30/24 0 03/09/25 Rx amoxicillin 875 mg-potassium 1 tab PO Q12H 10 days #20 tabs 03/09/25 Rx clavulanate 125 mg tablet PFSH Medical History Chest pain in adult SVT (supraventricular tachycardia) Palpitations Wears glasses Wears dentures Cancer Anxiety Restless legs Back pain Migraine headache History of ulceration History of IBS History of diverticulitis Heartburn Former smoker Shortness of breath on exertion Leg cramps Cardiology follow-up encounter History of rheumatic fever History of palpitations Chest pain Hx of fracture of ankle Encounter for screening for malignant neoplasm of colon Neck pain Arthritis Laceration of right index finger w/o foreign body w/o damage to nail Surgical History History of ankle surgery History of back surgery History of colonoscopy Hx of colonoscopy Hx of hernia repair Hx of hysterectomy, total History of partial hysterectomy History of exploratory laparotomy Hx of tonsillectomy Hx of appendectomy Hx of lumbar discectomy History of cholecystectomy Family History Mother Diabetes Heart disease Social History Smoking Status: Former smoker how long ago did patient quit smokin alcohol intake: never substance use type: does not use caffeine: Yes Type: coffee Number of servings: 2 HPI HPI Details: RENETTA PLAZA, is a 59 F who presents to the office today for follow up. *BGI established 09.03.21 through screening colonoscopy. ??? Colonoscopy 09.03.21???found patent end-to-side ileo-colonic anastomosis with healthy appearing mucosa; congested mucosa in sigmoid, descending, transverse colons and hepatic flexure; one 5mm tubular adenoma polyp. Remaining biopsies without pathologic diagnosis. She was started on colestipol following the procedure.??? OV 2.8. noting diarrhea with abdominal pain/cramping for which she has been using Lomotil which is effective and intermittent constipation. No active issues at OV.???[place] and levsin.??? OV 11.05. continues with postprandial diarrhea but is less severe, intermittent LLQ pain can wake her from sleep. Notes hernia mesh repair in LLQ which she attributes for the pain.?Pelvic/femu r Xray 06.26.22???postsurgical changes of mid pelvis, LLQ and right mid abdomen; arthrosis of both hips; small knee joint effusion.??? OV 5..23 continues to have consistent LLQ discomfort without changes of severity or character change. Loose stools have spontaneously resolved; except for food triggers. ??? OV 7 pt reports that she is feeling well overall, denies GI symptoms of concern at this time. Reports daily bm; denies blood in the stool. US and elastography 08.31.24 hepatic measurement 15cm with fatty infiltration, stiffness measures 6.2kPa compatible with F2-F3 Metavir score. OV 09.05.24 pt reports that she recently started a supplement she found on [employer] called [employer], reports that since starting she has felt great and symptom free. OV 03.09.25 pt reports that she is doing well, but for the past two weeks has had increased lower abdominal pain and has had difficulty having a bowel movement. Is currently having a bowel movement every other day. ROS Const Constitutional: No fatigue, fever(s) or weight change ENT ENT: No difficulty swallowing Gastro GI: Positive for constipation; No abdominal pain, belching, bloating, change in bowel habits, change in stool character, coffee ground emesis, cramping, diarrhea, heartburn, difficulty swallowing, feeling full early, excessive flatus, incontinent of stools, Vomiting blood/hematemesis, Blood in stool, loose stools, Black,tarry (more content not included)... Normal [facility] MR/BMS.Nelli 11-15-2024 MR/BMS.LORENAS [facility] [address] [place] [address] OFFICE VISIT Date of Service: 11/15/24 MR#: [id number] Acct: [id number] Name: MELAFELIPE Rep #: [id number] 2 : 1965 Provider: SUSAN Alvarado Age/Sex: 59/F Location: [facility] Status: Signed Intake Vital Signs 03/01/24 00:14 11/15/24 11:04 Height 5 ft 7 in Weight: 204 lb BP 103/75 Blood Pressure Location Lt brachial Position Sitting Respiration 14 Pulse 58 L Pulse Source Monitor Temp 97.5 F L Temp Source Temporal Pulse Oximetry (%) 97 Oxygen Delivery Method room air Intake Visit Reasons: 8-12 WK FU Is patient in pain?: No Allergies morphine Allergy (Verified 11/15/24 11:06) Anaphylaxis phenazopyridine HCl (From Pyridium) Allergy (Verified 11/15/24 11:06) Other sulfamethoxazole (From Septra) Allergy (Verified 11/15/24 11:06) Other trimethoprim (From Septra) Allergy (Verified 11/15/24 11:06) Other metoprolol Adverse Reaction (Severe, Verified 11/15/24 11:06) confusion, severe fatigue Medications ???Medication ???Instructions ???Recorded ???Confirmed ???Type bisoprolol fumarate 5 mg tablet 5 mg PO BID 08/30/24 11/15/24 Hist ory lisinopril 10 mg tablet 10 mg PO DAILY #30 tabs 08/30/24 0 11/15/24 Rx Is last menstrual period known: No Post menopausal: Yes Patient : No Have you fallen in the past year?: No PFSH Medical History Chest pain in adult SVT (supraventricular tachycardia) Palpitations Wears glasses Wears dentures Cancer Anxiety Restless legs Back pain Migraine headache History of ulceration History of IBS History of diverticulitis Heartburn Former smoker Shortness of breath on exertion Leg cramps Cardiology follow-up encounter History of rheumatic fever History of palpitations Chest pain Hx of fracture of ankle Encounter for screening for malignant neoplasm of colon Neck pain Arthritis Laceration of right index finger w/o foreign body w/o damage to nail Surgical History History of ankle surgery History of back surgery History of colonoscopy Hx of colonoscopy Hx of hernia repair Hx of hysterectomy, total History of partial hysterectomy History of exploratory laparotomy Hx of tonsillectomy Hx of appendectomy Hx of lumbar discectomy History of cholecystectomy Family History Mother Diabetes Heart disease Social History Smoking Status: Former smoker how long ago did patient quit smokin alcohol intake: never substance use type: does not use caffeine: Yes Type: coffee Number of servings: 2 HPI HPI HPI: RENETTA PLAZA, is a 59 F who presents to the office today for follow-up of bilateral lower extremity varicose/spider veins. She had her venous reflux study which demonstrated bilateral GSV/ASV/SSV incompetence. Since her last OV, she has not worn compression stockings with any consistency; she states they made her aching and discomfort worse when she wore them. She did however get new shoes and started taking an herbal supplement called Provitalize and she reports her lower extremity symptoms have resolved. ROS General General: No weight change, appetite, fatigue, colon cancer, breast cancer or weakness HEENT HEENT: No difficulty swallowing, eye injury, eye surgery, swollen glands or hoarseness Endo Endocrine: No thyroid disease, diabetes mellitus, thyroid cancer, Hair loss, heat intolerance or cold intolerance Skin Skin: No rash or changing moles Musc Musculoskeletal: Yes back problems, arthritis and joint pain; No rheumatoid arthritis or gout Cardio Cardiovascular: Yes high blood pressure, palpitations, shortness of breath with exertion and chest pain; No murmur, pacemaker, heart disease, atrial fibrillation, heart attack or heart stent Psych Psychiatric: No depression, anxiety or hearing voices Resp Respiratory: No shortness of breath, Yes sleep apnea, No cough, No COPD, No asthma, No emphysema and No wheezing Gastro Gastrointestinal: No abdominal pain, No nausea or vomiting, No diarrhea, No constipation, No blood in stool, No acid reflux, No hemorrhoids, No ulcers, No gallbladder problem and No black,tarry stools Lauro Hematologic: No blood thinners, No blood disorders, No bleeding, No anemia and No blood clots Neuro Neurologic: No system reviewed and no additional complaints, except as documented, No as per HPI, No abnormal gait, No abnormal hearing, No abnormal movements, No abnormal speech, No behavioral changes, No burning sensations, No confusion, No convulsions, No disequilibrium, No dizziness (more content not included)... Normal [facility] Thyroidon 11-14-2024 Thyroid [facility] Imaging Services [address] [place] [address] Thyroid MR#: [id number] Acct: [id number] Name: RENETTA PLAZA ANN Rep #: [id number] : 1965 F 59 From: Nimo Morrell nd, MD PCP: LETICIA Pruett Status: REG CLI Study: Thyroid Date of Exam: 11/14/24 Exam# [id number] Ordering Dr: Kitty Boland PROCEDURE: THYROID 11/14/2024 REASON FOR EXAM: 59-year-old female, NONTOXIC MULTINODULAR GOITER TECHNIQUE: Thyroid ultrasound COMPARISON: CT neck 11/04/2024, focused ultrasound of the neck 10/24/2024. FINDINGS: Right thyroid lobe measures 5.3 x 2.2 x 1.4 cm. Left thyroid lobe measures 5.3 x 2.0 x 1.7 cm. Isthmus thickness is0.2 cm. Thyroid Size: Normal Background Echotexture: Homogeneous Thyroid Nodules: Right TR-2 and left TR 1 thyroid nodules. No suspicious thyroid nodule identified. US/Thyroid IMPRESSION: Unremarkable thyroid ultrasound. Bilateral thyroid nodules which do not meet criteria for dedicated follow-up by ACR TI-RADS criteria. Reading Location: [facility] CC: CHIEF BUSINESS DEVELOPMENT OFFICER-C Kitty Boland Rn First Assistant: Signed Normal [facility] Soft Tissue Neck WITH Contra ston 11-04-2024 Soft Tissue Neck WITH Contrast [facility] Imaging Services [address] [place] [id number] Soft Tissue Neck WITH Contrast MR#: [id number] Acct: [id number] Name: RENETTA PLAZA Rep #: [id number] : 1965 F 59 From: Car Cheatham i, DO PCP: LETICIA Pruett Status: REG CLI Study: Soft Tissue Neck WITH Contrast Date of Exam: 0 11/04/24 Exam# [id number] Ordering Dr: Kitty Boland PROCEDURE: CT of the neck with IV contrast. 11/04/2024 REASON FOR EXAM: Assess right neck soft tissue mass. Abnormal neck ultrasound. TECHNIQUE: After the administration of 99 cc Isovue 370 IV contrast, contiguous axial CT images were obtained through the neck. Sagittal and coronal reformats were created. One or more dose reduction techniques were used (e.g., Automated exposure control, adjustment of the mA and/or kV according to patient size, use of iterative reconstruction technique). RADIATION DOSE SUMMARY: DLP: 527.55 mGycm COMPARISON: Ultrasound of the neck 10/24/2024. FINDINGS: Bones are osteopenic with degenerative changes in the spine. There is severe degenerative disc disease at C5-6. Posterior disc osteophyte complex at C5-6 causes moderate central spinal canal narrowing. There is multilevel neural foraminal narrowing in the cervical spine, to a severe degree bilaterally at C5-6. The included upper lungs and central airway are clear. No upper mediastinal mass or adenopathy. There are bilateral low-attenuation thyroid nodules, the largest at the inferior margin left thyroid lobe measuring 2 cm. The included upper breast tissue and included portions of the brain show no specific abnormality. Paranasal sinuses and mastoid air cells are clear. No discrete mucosal lesion of the pharynx/larynx. The vocal cords and epiglottis are unremarkable. No peritonsillar or retropharyngeal fluid collection. The orbits and globes are intact. A region of interest marker is present at the lateral skin surface of the right side of the neck image [address] images, near the level of the mid to inferior mandible. The major salivary glands are unremarkable. No dominant solid neck mass or adenopathy. CT/Soft Tissue Neck WITH Contrast IMPRESSION: No dominant solid neck mass or adenopathy. There is no focal CT abnormality of the subcutaneous fat or soft tissues deep to the region of interest marker of the right side of the neck. If there is persistent palpable or ultrasound abnormality, excisional biopsy or ultrasound-guided biopsy may be considered for definitive histologic diagnosis. Bilateral low-attenuation thyroid nodules, the largest inferiorly on the left at 2 cm. Recommend short-term follow-up dedicated thyroid ultrasound. Reading Location: [facility] CC: LETICIA Boland Rn First Assistant: Signed Normal [facility] Head/Neck Soft Tissueon 03- Head/Neck Soft Tissue [facility] Imaging Services [address] [place] [address] Head/Neck Soft Tissue MR#: [id number] Acct: [id number] Name: RENETTA PLAZA ANN Rep #: [id number] : 1965 F 59 From: Darren Bunn PCP: LETICIA Pruett Status: REG CLI Study: Head/Neck Soft Tissue Date of Exam: 10/24/24 Exam# [id number] Ordering Dr: Kitty Boland PROCEDURE: HEAD/NECK SOFT TISSUE REASON FOR EXAM: NECK MASS TECHNIQUE: Ultrasound targeted to the palpable abnormality at the right knee. COMPARISON: None. FINDINGS: Ill-defined hypoechoic 2.3 x 0.8 cm right lateral neck soft tissue abnormality. This contains some calcification. By report, there is a palpable abnormality. US/Head/Neck Soft Tissue IMPRESSION: Indeterminate ultrasound right neck mass with corresponding palpable abnormality. Malignancy not excluded. Further evaluation is advised with contrast enhanced neck CT. Reading Location: [id number] CC: LETICIA Boland Rn First Assistant: Signed Normal [facility] Venous Duplex US - Maurizio Extre [facility] 09-16-2024 Venous Duplex US - Maurizio Extrem [facility] Cardiovascular Services [address] [place] [address] Venous Duplex US - Maurizio [facility] 09/16/24 1418 MR#: [id number] Acct: [id number] Name: RENETTA PLAZA Rep #: [id number] : 1965 58 From: Jhon Rogers MD Attending Dr: SUSAN Alvarado Status: REG CLI Ordering Dr: Marina Huertas Date: 09/16/24 Location: [facility] Sex: F C Admitted: Reason For Study: Pain BLE RIGHT LEFT CFV is compressible, spontaneous, phasic, CFV is compressible, spontaneous, phasic, competent and demonstrates normal competent, and demonstrates normal augmentation. augmentation. FV is compressible, spontaneous, phasic, FV is compressible, spontaneous, phasic, competent and demonstrates normal competent and demonstrates normal augmentation. augmentation. POP V is compressible, spontaneous, phasic, POP V is compressible, spontaneous, phasic, competent and demonstrates normal competent and demonstrates normal augmentation. augmentation. T/P Trunk is compressible. T/P Trunk is compressible. PTV is compressible. PTV is compressible. RT PerV is compressible. LT PerV is compressible. SFJ is INCOMPETENT and measures 0.52cmx 0.55 SFJ is competent and measures 0.48cm x 0.48 cm. cm. GSV proximal thigh measures 0.41cm x 0.43 cm. GSV proximal thigh measures 0.74cm x 0.81 cm. GSV at knee measures 0.34cm x 0.41 cm. GSV at knee measures 0.43cm x 0.46 cm. GSV INCOMPETENT throughout for greater than GSV above knee is INCOMPETENT for greater 0.5 seconds. than 0.5 seconds. SSV mid calf is INCOMPETENT for greater than GSV below knee is competent. 0.5 seconds and measures 0.15cm x 0.18 cm. SSV mid calf is INCOMPETENT for greater than ASV distal thigh is INCOMPETENT for greater 0.5 seconds and measures 0.15cm x 0.16 cm. than 0.5 seconds and measures 0.44cm x 0.35 ASV mid thigh is INCOMPETENT for greater than cm. 0.5 seconds and measures 0.50cm x 0.44 cm. ASV proximal calf is INCOMPETENT for greater ASV proximal calf is INCOMPETENT for greater than 0.5 seconds and measures 0.31cm x 0.35 than 0.5 seconds and measures 0.53cm x 0.63 cm. cm. Procedure ASV mid calf is INCOMPETENT for greater than This is a venous duplex using B-mode, color 0.5 seconds and measures 0.16cm x 0.20 cm. flow and spectral Doppler. Exam performed in department. Patient was scanned in reverse Trendelenburg position during reflux assessment. A preliminary report was called and/or faxed to Marina DAVIS. VL/Venous Duplex US - Maurizio Extrem Interpretation Summary Deep veins of the bilateral lower extremities are patent and compressible segmentally. There is no evidence of bilateral lower extremity deep vein thrombosis. The bilateral great saphenous veins appear patent and compressible segmentally. Positive for reflux in the right saphenofemoral junction, great saphenous vein throughout, accessory saphenous vein in distal thigh, accessory saphenous vein in proximal calf. Positive for reflux in the left great saphenous vein above the knee, accessory saphenous vein in the mid thigh, accessory saphenous vein in the proximal calf, accessory saphenous vein in the mid calf, small saphenous vein. Ordering Physician: Marina Huertas Referring Physician: Kitty Boland Performed By: Kitty De, RDCS, RVT 09/19/24 1143 Date Jhon Rogers MD CC: CHIEF BUSINESS DEVELOPMENT OFFICER-C Kitty Boland; SUSAN Alvarado Date Dictated: 09/16/24 1418 Date Transcribed: 09/19/24 114 Rn First Assistant: Signed Normal [facility] Gastroenterology Visit Repor ton 09-05-2024 Gastroenterology Visit Report [facility]ology [address] [place] [address] OFFICE VISIT Date of Service: 09/05/24 MR#: [id number] Acct: [id number] Name: RENETTA PLAZA ANN Rep #: [id number] : 1965 Provider: Juwan Simms DO Age/Sex: 58/F [place] [facility] [place]: Signed Intake Vital Signs 06/16/23 09:44 03/01/24 00:14 Height 5 ft 7 in 5 ft 7 in Intake Visit Reasons: 6 month f/u Allergies morphine Allergy (Verified 08/30/24 13:38) Anaphylaxis phenazopyridine HCl (From Pyridium) Allergy (Verified 08/30/24 13:38) Other sulfamethoxazole (From Septra) Allergy (Verified 08/30/24 13:38) Other trimethoprim (From Septra) Allergy (Verified 08/30/24 13:38) Other metoprolol Adverse Reaction (Severe, Verified 08/30/24 13:38) confusion, severe fatigue Medications ???Medication ???Instructions ???Recorded ???Confirmed ???Type bisoprolol fumarate 5 mg tablet 5 mg PO BID 08/30/24 09/05/24 History lisinopril 10 mg tablet 10 mg PO DAILY #30 tabs 08/30/24 09/05/24 Rx PFSH Medical History Chest pain in adult SVT (supraventricular tachycardia) Palpitations Wears glasses Wears dentures Cancer Anxiety Restless legs Back pain Migraine headache History of ulceration History of IBS History of diverticulitis Heartburn Former smoker Shortness of breath on exertion Leg cramps Cardiology follow-up encounter History of rheumatic fever History of palpitations Chest pain Hx of fracture of ankle Encounter for screening for malignant neoplasm of colon Neck pain Arthritis Laceration of right index finger w/o foreign body w/o damage to nail Surgical History History of ankle surgery History of back surgery History of colonoscopy Hx of colonoscopy Hx of hernia repair Hx of hysterectomy, total History of partial hysterectomy History of exploratory laparotomy Hx of tonsillectomy Hx of appendectomy Hx of lumbar discectomy History of cholecystectomy Family History Mother Diabetes Heart disease Social History Smoking Status: Former smoker how long ago did patient quit smokin alcohol intake: never substance use type: does not use caffeine: Yes Type: coffee Number of servings: 2 HPI HPI Details: RENETTA PLAZA, is a 58 F who presents to the office today for follow up. *BGI established 09.03.21 through screening colonoscopy. ??? Colonoscopy 09.03.21???found patent end-to-side ileo-colonic anastomosis with healthy appearing mucosa; congested mucosa in sigmoid, descending, transverse colons and hepatic flexure; one 5mm tubular adenoma polyp. Remaining biopsies without pathologic diagnosis. She was started on colestipol following the procedure.??? OV 2.8.22 noting diarrhea with abdominal pain/cramping for which she has been using Lomotil which is effective and intermittent constipation. No active issues at OV.???[place] and levsin.??? OV 3. continues with postprandial diarrhea but is less severe, intermittent LLQ pain can wake her from sleep. Notes hernia mesh repair in LLQ which she attributes for the pain.?Pelvic/femu r Xray 11.10.22???postsurgical changes of mid pelvis, LLQ and right mid abdomen; arthrosis of both hips; small knee joint effusion.??? OV 5.1.23 continues to have consistent LLQ discomfort without changes of severity or character change. Loose stools have spontaneously resolved; except for food triggers. ??? OV 7.1.24 pt reports that she is feeling well overall, denies GI symptoms of concern at this time. Reports daily bm; denies blood in the stool. US and elastography 08.31.24 hepatic measurement 15cm with fatty infiltration, stiffness measures 6.2kPa compatible with F2-F3 Metavir score. OV 09.05.24 pt reports that she recently started a supplement she found on [employer] called provitalize, reports that since starting she has felt great and symptom free. ROS Const Constitutional: No fatigue, fever(s) or weight change ENT ENT: No difficulty swallowing Gastro GI: Positive for change in bowel habits; No abdominal pain, belching, bloating, change in stool character, coffee ground emesis, constipation, cramping, diarrhea, heartburn, difficulty swallowing, feeling full early, excessive flatus, incontinent of stools, Vomiting blood/hematemesis, Blood in stool, loose stools, Black,tarry stools, nausea/dyspepsia, pain with swallowing, vomiting or other Musc Musculoskeletal: Positive for joint pain, back pain, joint swelling, muscle cramps, stiffness, Arthritis, sciatica and restless legs Skin Skin: No yellowing of the eye or itchy eyes Neuro Neurology: Positive for restless legs (more content not included)... Normal [facility] 09-02-2024 [facility] Tele[facility] (C[facility]) RENETTA PLAZA ([id number]) 1965 F Date Time Provider Department 09/02/24 TL [facility] During your visit today, we recorded the following information about you: Allergies As of Date: 09/02/2024 Noted Allergy Reaction BARBITURATES 05/11/2003 MORPHINE 05/11/2003 SULFA (SULFONAMIDE ANTIBIOTICS) 05/11/2003 Date Reviewed: 05/09/2024 Reviewed by: Sharon Ha RN - Fully Assessed Reason for Visit: Appointment [186] Prescriptions as of 09/02/2024 - bisoprolol (ZEBETA) 5 mg tablet Take 0.5 tablets by mouth two times a day. - lisinopril (ZESTRIL) 10 mg tablet Take 10 mg by mouth once daily. - naproxen (NAPROSYN) 500 mg tablet Take 500 mg by mouth two times a day with meals. - gabapentin (NEURONTIN) 300 mg capsule Take 300 mg by mouth once daily. Problem List As Of Date 09/02/2024 Noted Resolved ASA CLASS II [1001] 07/06/2003 06/11/2010 [facility] - EKG,LABS, AND OR PENDING 07/06/2003 06/11/2010 Fracture of unspecified bones [829] 05/10/2007 06/11/2010 Closed fracture of unspecified bone [T14.8XXA] 05/20/2007 06/11/2010 Depressive disorder, not elsewhere classified [*06/11/2010 Back pain [M54.9] 06/11/2010 Irritable bowel [K58.9] 06/11/2010 Costochondritis [M94.0] 01/14/2012 Palpitations [R00.2] 04/06/2024 SVT (supraventricular tachycardia) (HCC) [I47.1*04/06/2024 Atypical chest pain [R07.89] 04/06/2024 Shortness of breath [R06.02] 04/06/2024 Atrial tachycardia (HCC) [I47.19] 05/09/2024 Encounter Status:Closed by LOYD WARNER on 09/02/24 Normal [facility] ABD Limited w/ Elastographyo n 08-31-2024 ABD Limited w/ Elastography [facility] Imaging Services [facility] [address] [place], [place] [id number] ABD Limited w/ Elastography MR#: [id number] Acct: [id number] Name: RENETTA PLAZA Rep #: [id number] : 1965 F 58 From: Asaf mcclelland MD PCP: Kitty Boland CHIEF BUSINESS DEVELOPMENT OFFICER-C Status: REG CLI Study: ABD Limited w/ Elastography Date of Exam: 08/17 01/08 Exam# [id number] Ordering Dr: [place] [id number] STUDY: ABDOMINAL ULTRASOUND - RIGHT UPPER QUADRANT; ELASTOGRAPHY REASON FOR VISIT: Female, 58 years old. NAFLD TECHNIQUE: Ultrasound evaluation of the right upper quadrant was performed with real-time and static heart-scale imaging. Point quantification shear wave elastography was performed (Tippr). TECHNICAL QUALITY: Adequate. COMPARISON: Comparison is made with prior study June 24, 2023. FINDINGS: Liver: The liver measures 15 cm. There is increased echogenicity consistent with fatty infiltration. The bile ducts are within normal limits. There is hepatic color flow. The direction of portal flow is hepatopetal. There is no demonstrated mass lesion. Median liver stiffness measured 6.2 kPa. Gallbladder: The patient is status post cholecystectomy. Common Bile Duct (C.B.D.): The common bile duct measures 3 mm. Pancreas: There is normal echogenicity of the visualized pancreas. There is no demonstrated pancreatic mass or cyst. Right Kidney: Normal size of the right kidney. The right kidney measures 10.7 cm x 5.5 cm x 4.2 cm. Normal renal cortex. The right cortex measures 1.2 cm. There is no demonstrated renal mass or cyst. There is no right hydronephrosis. US/ABD Limited w/ Elastography IMPRESSION: 1. Liver stiffness measures 6.2 kPa compatible with F2-F3 (Mild to moderate liver fibrosis) Metavir score. Electronically Signed: Asaf Madden MD at 12:20 EST , CC: LETICIA Boland; Juwan Simms DO Rn First Assistant: Signed Normal [facility] MR/BMS.BVSon 08-30-2024 MR/BMS.BVS [facility] [address] [place] [address] OFFICE VISIT Date of Service: 08/30/24 MR#: [id number] Acct: [id number] Name: RENETTA PLAZA Rep #: [id number] : 1965 Provider: SUSAN Alvarado Age/Sex: 58/F Location: [facility] Status: Signed Intake Vital Signs 03/01/24 00:14 08/30/24 13:36 Height 5 ft 7 in Weight: 206 lb BP 107/65 Blood Pressure Location Lt brachial Position Sitting Respiration 16 Pulse 72 Pulse Source Monitor Temp 98.1 F Temp Source Temporal Pulse Oximetry (%) 98 Oxygen Delivery Method room air Intake Visit Reasons: Varicose Veins Chief Complaint: LLQ pain Is patient in pain?: No Allergies morphine Allergy (Verified 08/30/24 13:38) Anaphylaxis phenazopyridine HCl (From Pyridium) Allergy (Verified 08/30/24 13:38) Other sulfamethoxazole (From Septra) Allergy (Verified 08/30/24 13:38) Other trimethoprim (From Septra) Allergy (Verified 08/30/24 13:38) Other metoprolol Adverse Reaction (Severe, Verified 08/30/24 13:38) confusion, severe fatigue Medications ???Medication ???Instructions ???Recorded ???Confirmed ???Type lisinopril 10 mg tablet 10 mg PO DAILY #30 tabs 06/19/23 03/01/24 Rx bisoprolol fumarate 5 mg tablet 5 mg PO BID 08/30/24 08/30/24 History Is last menstrual period known: No Post menopausal: Yes Patient : No Have you fallen in the past year?: No PFSH Medical History Chest pain in adult SVT (supraventricular tachycardia) Palpitations Wears glasses Wears dentures Cancer Anxiety Restless legs Back pain Migraine headache History of ulceration History of IBS History of diverticulitis Heartburn Former smoker Shortness of breath on exertion Leg cramps Cardiology follow-up encounter History of rheumatic fever History of palpitations Chest pain Hx of fracture of ankle Encounter for screening for malignant neoplasm of colon Neck pain Arthritis Laceration of right index finger w/o foreign body w/o damage to nail Surgical History History of ankle surgery History of back surgery History of colonoscopy Hx of colonoscopy Hx of hernia repair Hx of hysterectomy, total History of partial hysterectomy History of exploratory laparotomy Hx of tonsillectomy Hx of appendectomy Hx of lumbar discectomy History of cholecystectomy Family History Mother Diabetes Heart disease Social History Smoking Status: Former smoker how long ago did patient quit smokin alcohol intake: never substance use type: does not use caffeine: Yes Type: coffee Number of servings: 2 HPI HPI HPI: RENETTA PLAZA, is a 58 F who presents to the office today for evaluation of bilateral lower extremity varicose veins and, in particular, pain along her left lateral thigh. She is referred from her PCP. She notes bilateral lower extremity varicose and reticular veins. Typically, she does not have much discomfort or associated symptoms along these veins but does wish to prevent continued worsening. She does have significant pain/discomfort along her left lateral thigh. She has some reticular/spider veins here but no apparent larger varicosity. She reports she has had some long- standing numbness in this area ever since a spine surgery many years ago; however, more recently she has developed burning, shooting pain along her left lateral thigh down to her knee. This is worst at night when she is lying down and trying to sleep. She reports she did recently have updated spine imaging through her PCP which by her reports seems to have showed possibly lumbar disease/L5 disc abnormalities. She does not regularly follow with ortho spine or pain management. She has compression stockings but has not worn them recently. ROS General General: No weight change, appetite, fatigue, colon cancer, breast cancer or weakness HEENT HEENT: No difficulty swallowing, eye injury, eye surgery, swollen glands or hoarseness Endo Endocrine: No thyroid disease, diabetes mellitus, thyroid cancer, Hair loss, heat intolerance or cold intolerance Skin Skin: No rash or changing moles Musc Musculoskeletal: Yes back problems and arthritis; No rheumatoid arthritis, gout or joint pain Cardio Cardiovascular: No murmur, pacemaker, heart disease, atrial fibrillation, high blood pressure, heart attack, heart stent, palpitations, shortness of breat with exertion or chest pain Psych Psychiatric: No depression, anxiety or hearing voices Resp Respiratory: No shortness of breath, No sleep apnea, No cough, No COPD, No asthma, No emphysema (more content not included)... Normal [facility] Foot min 3 Viewson 5 Foot min 3 Views [facility] Imaging Services [address], [place] [id number] Foot min 3 Views MR#: [id number] Acct: [id number] Name: RENETTA PLAZA Rep #: [id number] : 1965 F 58 From: Rene Garcia MD PCP: LETICIA Pruett Status: REG CLI Study: Foot min 3 Views Date of Exam: 08/24/24 Exam# [id number] Ordering Dr: Kitty BolandC [id number] STUDY: X-RAY - LEFT FOOT CLINICAL: Female, 58 years old. R/O FX TECHNIQUE: 3 views of the left foot. COMPARISON: None. FINDINGS: Normal talus, calcaneus, and tarsal bones. Normal visualized subtalar, talonavicular, calcaneocuboid, tarsal and tarsometatarsal articulations. Normal metatarsi. There is mild degenerative arthrosis of the metatarsophalangeal joint of the hallux. Normal tibial and fibular sesamoid bones. Normal interphalangeal joint of the great toe. Normal phalanges of the great toe. Normal second through fifth metatarsophalangeal joints. Normal interphalangeal joints and phalanges of the lesser toes. The soft tissue structures are unremarkable. There is no demonstrated acute fracture. RAD/Foot min 3 Views IMPRESSION: Mild degenerative arthrosis of the first MTP joint. No demonstrated acute fracture. Electronically Signed: Rene Garcia MD at 16:02 EST , CC: CHIEF BUSINESS DEVELOPMENT OFFICER-C Kitty Boland Rn First Assistant: Signed Normal [facility] SCRN MAMM (CAD)W/ARELY BILATo n 07-26-2024 SCRN MAMM (CAD)W/ARELY BILAT [facility] Imaging Services [address] [place] [address] SCRN MAMM (CAD)W/ARELY BILAT MR#: [id number] Acct: [id number] Name: RENETTA PLAZA ANN Rep #: [id number] : 1965 F 58 From: Asaf mcclelland MD PCP: LETICIA Pruett Status: REG [facility] Study: SCRN MAMM (CAD)W/ARELY BILAT Date of Exam: 07/17 Exam# [id number] Ordering Dr: Kitty Boland [id number] MAMMOGRAPHY - BILATERAL SCREENING REASON FOR EXAM: Female, 58 years old. Routine annual screening examination. PERTINENT HISTORY: Non-contributory. TECHNIQUE: Digital bilateral breast arely (3D mammographic acquisition) in the CC and MLO projections. 2-D mediolateral oblique (MLO) and craniocaudad (CC) views of both breasts were obtained. CAD: Full Field Digital Mammography with Computer Added Detection was performed. COMPARISON: None. Baseline examination. FINDINGS: Breast Composition: The breasts are heterogeneously dense, which may obscure small masses. There are no dominant masses or suspicious calcifications. Bilateral fat containing axillary lymph nodes. No other significant abnormalities are identified. There has been no significant change since the prior study. BI/SCRN MAMM (CAD)W/ARELY BILAT IMPRESSION: Negative screening mammogram. Yearly followup mammogram recommended. (A) ASSESSMENT CATEGORY: BIRADS Category 2: Benign. A letter regarding these results will be sent to the patient by the facility within 30 days. Approximately 10% of breast cancers are not detected by mammography. A normal mammogram should not delay biopsy of a clinically suspicious abnormality. [id number] Electronically Signed: Asaf Madden MD at 15:12 EST Reading Location ID and State: [address] [place] [address] , Service support , CC: LETICIA Boland Rn First Assistant: Signed Normal [facility] CBC, Employeeon 06-14-2024 Absolute Lymph 2.49 X10 3/uL Normal 0.83-4.51 [facility] Comment on above: Performed By: #### L 400.0100, L500.2900, L100.0200 #### [facility] [address] [place], [place], [id number] (301) Absolute Neut 3.3 X10 3/uL Normal 2.0-7.7 [facility] Comment on above: Performed By: #### L 400.0100, L500.2900, L100.0200 #### [facility] [address] [place], [address] Basophils/100 WBC (Bld) 0.5 % Normal 0-1 [facility] Comment on above: Performed By: #### L 400.0100, L500.2900, L100.0200 #### [facility] [address] [place], [address] Eosinophils/100 WBC (Bld) 0.9 % Normal 0-5 [facility] Comment on above: Performed By: #### L 400.0100, L500.2900, L100.0200 #### [facility] [address] [place], [address] Erythrocyte distribution width (RBC) [Ratio] 13.3 % Normal 11.6-14.6 [facility] Comment on above: Performed By: #### L 400.0100, L500.2900, L100.0200 #### [facility] [address] [place], [address] Hematocrit (Bld) [Volume fraction] 39.9 % Normal 37-47 [facility] Comment on above: Performed By: #### L 400.0100, L500.2900, L100.0200 #### [facility] [address] [place], [address] Hemoglobin (Bld) [Mass/Vol] 13.0 g/dL Normal 12.0-15.0 [facility] Comment on above: Performed By: #### L 400.0100, L500.2900, L100.0200 #### [facility] [address] [place], [address] Lymphocytes/100 WBC (Bld) 39.4 % Normal 19-41 [facility] Comment on above: Performed By: #### L 400.0100, L500.2900, L100.0200 #### [facility] [address] [place], [address] MCH (RBC) [Entitic mass] 30.9 pg Normal 27.0-32.0 [facility] Comment on above: Performed By: #### L 400.0100, L500.2900, L100.0200 #### [facility] [address] [place], [address] MCHC (RBC) [Mass/Vol] 32.6 g/dL Normal 32-36 [facility] Comment on above: Performed By: #### L 400.0100, L500.2900, L100.0200 #### [facility] [address] [place], [address] MCV (RBC) [Entitic vol] 94.8 fL Normal 81-99 [facility] Comment on above: Performed By: #### L 400.0100, L500.2900, L100.0200 #### [facility] [address] [place], [address] Monocytes/100 WBC (Bld) 7.3 % Normal 0-10 [facility] Comment on above: Performed By: #### L 400.0100, L500.2900, L100.0200 #### [facility] [address] [place], [address] Neutrophils/100 WBC (Bld) 51.6 % Normal 47-70 [facility] Comment on above: Performed By: #### L 400.0100, L500.2900, L100.0200 #### [facility] [address] [place], [address] NRBC # 0.00 10 3/uL Normal 0-5 [facility] Comment on above: Performed By: #### L 400.0100, L500.2900, L100.0200 #### [facility] [address] [place], [address] Nucleated RBC (Bld) [#/Vol] 0 10*3/uL Normal 0-5 [facility] Comment on above: Performed By: #### L 400.0100, L500.2900, L100.0200 #### [facility] [address] [place], [address] Platelet mean volume (Bld) [Entitic vol] 9.5 fL Normal 6.2-12.0 [facility] Comment on above: Performed By: #### L 400.0100, L500.2900, L100.0200 #### [facility] [address] [place], [address] Platelets (Bld) [#/Vol] 262 10*3/uL Normal 150-450 [facility] Comment on above: Performed By: #### L 400.0100, L500.2900, L100.0200 #### [facility] [address] [place], [address] RBC (Bld) [#/Vol] 4.21 10*6/uL Normal 4.2-5.4 [facility] Comment on above: Performed By: #### L 400.0100, L500.2900, L100.0200 #### [facility] [address] [place], [address] RDW SD 46.3 fl High 35.1-43.9 [facility] Comment on above: Performed By: #### L 400.0100, L500.2900, L100.0200 #### [facility] [address] [place], [address] WBC (Bld) [#/Vol] 6.3 10*3/uL Normal 4.4-11.0 [facility] Comment on above: Performed By: #### L 400.0100, L500.2900, L100.0200 #### [facility] [address] [place], [address] Employee Profileon 4 Albumin [Mass/Vol] 3.4 g/dL Normal 3.2-5.0 [facility] Comment on above: Performed By: #### L 400.0100, L500.2900, L100.0200 #### [facility] [address] [place], [address] Albumin/Globulin [Mass ratio] 1.1 {ratio} Normal 0.9-2.4 [facility] Comment on above: Performed By: #### L 400.0100, L500.2900, L100.0200 #### [facility] [address] [place], [address] ALK P 68 U/L Normal 45-117 [facility] Comment on above: Performed By: #### L 400.0100, L500.2900, L100.0200 #### [facility] [address] [place], [address] ALT [Catalytic activity/Vol] 24 U/L Normal 13-56 [facility] Comment on above: Performed By: #### L 400.0100, L500.2900, L100.0200 #### [facility] [address] [place], [address] AST [Catalytic activity/Vol] 12 U/L Low 15-37 [facility] Comment on above: Performed By: #### L 400.0100, L500.2900, L100.0200 #### [facility] [address] [place], [address] Bilirubin [Mass/Vol] 0.50 mg/dL Normal 0.20-1.00 [facility] Comment on above: Result Comment: For patients on eltrombopag therapy, use of Dimension [place] TBIL is not recommended. Performed By: #### L 400.0100, L500.2900, L100.0200 #### [facility] [address] [place], [address] Bilirubin.direct [Mass/Vol] 0.15 mg/dL Normal 0.00-0.30 [facility] Comment on above: Performed By: #### L 400.0100, L500.2900, L100.0200 #### [facility] [address] [place], [address] BUN/CRE 24.3 RATIO High 10-20 [facility] Comment on above: Performed By: #### L 400.0100, L500.2900, L100.0200 #### [facility] [address] [place], [address] CA,Total 9.0 mg/dL Normal 8.5-10.1 [facility] Comment on above: Performed By: #### L 400.0100, L500.2900, L100.0200 #### [facility] [address] [place], [address] Chloride [Moles/Vol] 108 mmol/L High 98-107 [facility] Comment on above: Performed By: #### L 400.0100, L500.2900, L100.0200 #### [facility] [address] [place], [address] CHOL:HDL 3.20 Normal [facility] Comment on above: Performed By: #### L 400.0100, L500.2900, L100.0200 #### [facility] [address] [place], [address] Cholesterol [Mass/Vol] 207 mg/dL High 200 [facility] Comment on above: Result Comment: <200 mg/dL Desirable 200-240 mg/dL Borderline >240 mg/dL High Risk Performed By: #### L 400.0100, L500.2900, L100.0200 #### [facility] [address] [place], [address] Cholesterol in HDL [Mass/Vol] 64 mg/dL Normal [facility] Comment on above: Result Comment: The drugs N-Acetylcysteine and Metamizole may falsely depress this assay. Reference Range HDL <40 mg/dL Low HDL Cholesterol HDL >or= 60 mg/dL High HDL Cholesterol Performed By: #### L 400.0100, L500.2900, L100.0200 #### [facility] [address] [place], [address] Cholesterol in LDL [Mass/Vol] 110 mg/dL Normal 0-130 [facility] Comment on above: Performed By: #### L 400.0100, L500.2900, L100.0200 #### [facility] [address] [place], [address] Cholesterol in VLDL [Mass/Vol] 33 mg/dL Normal 5-40 [facility] Comment on above: Performed By: #### L 400.0100, L500.2900, L100.0200 #### [facility] [address] [place], [address] CO2 [Moles/Vol] 28.0 mmol/L Normal 21.0-32.0 [facility] Comment on above: Performed By: #### L 400.0100, L500.2900, L100.0200 #### [facility] [address] [place], [address] Creatinine [Mass/Vol] 0.74 mg/dL Normal 0.55-1.02 [facility] Comment on above: Result Comment: The validity of the calculated GFR GFRAA in patients over 70 years has not been determined. Clinical correlation is essential. Performed By: #### L 400.0100, L500.2900, L100.0200 #### [facility] [address] [place], [address] EST GFR - AA 102 mL/min Normal >60 [facility] Comment on above: Result Comment: Afri can Estonian GFR Calc Performed By: #### L 400.0100, L500.2900, L100.0200 #### [facility] [address] [place], [address] GAP 5 Normal 5-15 [facility] Comment on above: Performed By: #### L 400.0100, L500.2900, L100.0200 #### [facility] [address] [place], [address] GFR/1.73 sq M.predicted among non-blacks MDRD (S/P/Bld) [Vol rate/Area] 85 mL/min/{1.73_m2} Normal >60 [facility] Comment on above: Result Comment: Non- GFR Calc Performed By: #### L 400.0100, L500.2900, L100.0200 #### [facility] [address] [place], [address] Globulin (S) [Mass/Vol] 3.2 g/dL Normal 2.2-4.2 [facility] Comment on above: Performed By: #### L 400.0100, L500.2900, L100.0200 #### [facility] [address] [place], [address] Glucose [Mass/Vol] 94 mg/dL Normal 74-106 [facility] Comment on above: Performed By: #### L 400.0100, L500.2900, L100.0200 #### [facility] [address] [place], [address] LDH 176 U/L Normal 84-246 [facility] Comment on above: Performed By: #### L 400.0100, L500.2900, L100.0200 #### [facility] [address] [place], [address] Phosphate [Mass/Vol] 3.3 mg/dL Normal 2.5-4.9 [facility] Comment on above: Performed By: #### L 400.0100, L500.2900, L100.0200 #### [facility] [address] [place], [address] Potassium [Moles/Vol] 4.0 mmol/L Normal 3.5-5.1 [facility] Comment on above: Performed By: #### L 400.0100, L500.2900, L100.0200 #### [facility] [address] [place], [address] Sodium [Moles/Vol] 141 mmol/L Normal 136-145 [facility] Comment on above: Performed By: #### L 400.0100, L500.2900, L100.0200 #### [facility] [address] [place], [address] T PROT 6.6 g/dL Normal 6.4-8.2 [facility] Comment on above: Performed By: #### L 400.0100, L500.2900, L100.0200 #### [facility] [address] [place], [address] Triglyceride [Mass/Vol] 167 mg/dL Normal [facility] Comment on above: Result Comment: The drugs N-Acetylcysteine and Metamizole may falsely depress this assay. Serum Triglycerides Reference Interval Normal <150 mg/dL Borderline high 150 - 199 mg/dL High 200 - 499 mg/dL Very High > or = 500 mg/dL Performed By: #### L 400.0100, L500.2900, L100.0200 #### [facility] [address] [place], [address] Urea nitrogen [Mass/Vol] 18 mg/dL Normal 7-18 [facility] Comment on above: Performed By: #### L 400.0100, L500.2900, L100.0200 #### [facility] [address] [place], [address] URIC 6.3 mg/dL High 2.6-6.0 [facility] Comment on above: Result Comment: The drugs N-Acetylcysteine and Metamizole may falsely depress this assay. Performed By: #### L 400.0100, L500.2900, L100.0200 #### [facility] [address] [place], [address] Urinalysis, Employeeon 06-14 Clarity (U) Sl Cldy Normal Clear [facility] Comment on above: Order Comment: CLEAN CATCH Performed By: #### L 400.0100, L500.2900, L100.0200 #### [facility] [address] [place], [address] Color (U) Yellow Normal Yellow [facility] Comment on above: Order Comment: CLEAN CATCH Performed By: #### L 400.0100, L500.2900, L100.0200 #### [facility] [address] [place], [address] BILIRUBIN URINE Negative Normal Negative [facility] Comment on above: Order Comment: CLEAN CATCH Performed By: #### L 400.0100, L500.2900, L100.0200 #### [facility] [address] [place], [address] GLUCOSE, UR Normal Normal Normal [facility] Comment on above: Order Comment: CLEAN CATCH Performed By: #### L 400.0100, L500.2900, L100.0200 #### [facility] [address] [place], [address] KETONE UR Negative Normal Negative [facility] Comment on above: Order Comment: CLEAN CATCH Performed By: #### L 400.0100, L500.2900, L100.0200 #### [facility] [address] [place], [address] LEUK ESTERASE 100 /ul Abnormal Negative [facility] Comment on above: Order Comment: CLEAN CATCH Performed By: #### L 400.0100, L500.2900, L100.0200 #### [facility] [address] [place], [address] Nitrite Ql (U) Negative Normal Negative [facility] Comment on above: Order Comment: CLEAN CATCH Performed By: #### L 400.0100, L500.2900, L100.0200 #### [facility] [address] [place], [address] OCCULT BLOOD-UR 10 /ul Abnormal Negative [facility] Comment on above: Order Comment: CLEAN CATCH Performed By: #### L 400.0100, L500.2900, L100.0200 #### [facility] [address] [place], [address] pH UR 5.0 Normal 5.0 - 8.0 [facility] Comment on above: Order Comment: CLEAN CATCH Performed By: #### L 400.0100, L500.2900, L100.0200 #### [facility] [address] [place], [address] PROT DIPSTX 15 mg/dl Abnormal Negative [facility] Comment on above: Order Comment: CLEAN CATCH Performed By: #### L 400.0100, L500.2900, L100.0200 #### [facility] [address] [place], [address] SP.GR. DIPSTX 1.025 Normal 1.002-1.030 [facility] Comment on above: Order Comment: CLEAN CATCH Performed By: #### L 400.0100, L500.2900, L100.0200 #### [facility] [address] [place], [address] UROBILI Normal Normal Normal [facility] Comment on above: Order Comment: CLEAN CATCH Performed By: #### L 400.0100, L500.2900, L100.0200 #### [facility] [address] [place], [address] [facility] 05-10-2024 [facility] Telephone (CARDMN) MELARENETTA ([id number]) 1965 F Date Time Provider Department 05/10/24 JOHAN CROFT During your visit today, we recorded the following information about you: Loyd Leal 05/10/2024 10:07 AM Signed Documentation scanned into EP outside database Scanned EKG into epic Allergies As of Date: 05/10/2024 Noted Allergy Reaction BARBITURATES 05/11/2003 MORPHINE 05/11/2003 SULFA (SULFONAMIDE ANTIBIOTICS) 05/11/2003 Date Reviewed: 05/09/2024 Reviewed by: Sharon Ha RN - Fully Assessed Reason for Visit: Received Outside Medical Records [[id number]] Prescriptions as of 05/10/2024 - bisoprolol (ZEBETA) 5 mg tablet Take 0.5 tablets by mouth two times a day. - lisinopril (ZESTRIL) 10 mg tablet Take 10 mg by mouth once daily. - naproxen (NAPROSYN) 500 mg tablet Take 500 mg by mouth two times a day with meals. - gabapentin (NEURONTIN) 300 mg capsule Take 300 mg by mouth once daily. Problem List As Of Date 05/10/2024 Noted Resolved ASA CLASS II [1001] 07/06/2003 06/11/2010 [facility] - EKG,LABS, AND OR PENDING 07/06/2003 06/11/2010 Fracture of unspecified bones [829] 05/10/2007 06/11/2010 Closed fracture of unspecified bone [T14.8XXA] 05/20/2007 06/11/2010 Depressive disorder, not elsewhere classified [*06/11/2010 Back pain [M54.9] 06/11/2010 Irritable bowel [K58.9] 06/11/2010 Costochondritis [M94.0] 01/14/2012 Palpitations [R00.2] 04/06/2024 SVT (supraventricular tachycardia) (HCC) [I47.1*04/06/2024 Atypical chest pain [R07.89] 04/06/2024 Shortness of breath [R06.02] 04/06/2024 Atrial tachycardia (HCC) [I47.19] 05/09/2024 Encounter Status:Closed by LOYD LEAL on 05/10/24 Normal [facility] CNOVon 05-09-2024 CNOV Office Visit (CARDMN ) RENETTA PLAZA ([id number]) 1965 F Date Time Provider Department 05/09/24 2:00 PM JOHAN CROFT CARDMN During your visit today, we recorded the following information about you: Pulse Blood pressure Weight Height 68/minute 110/66 91.2 kg 1.702 m Johan Croft MD 05/09/2024 6:02 PM [facility] [place] Riggins Department of Cardiovascular Medicine SECTION OF CARDIAC PACING and ELECTROPHYSIOLOGY OUTPATIENT VISIT DATE May 09, 2024 OUTPATIENT VISIT TYPE CONSULTATION PRIMARY CARE PHYSICIAN: Dread Cedillo [address] [place] [address] REFERRING PHYSICIAN Tl Kc [address] [facility] Desk J3-4 [facility] [address] CHIEF COMPLAINT: SVT HISTORY OF PRESENT ILLNESS: Cardiac consultation at the request of Dr. Tl Kc.A copy of this consultation note will be provided to the requesting physician by way of shared Medical record or letter to requesting physician via US mail. Ms. Plaza is a 58 year old female who is seen today for SVT. NURSING INTAKE HISTORY: Ms. Plaza is a 58 year old female who is seen today for SVT. She has a past medical history of paroxysmal SVT, HTN, anxiety, former smoker, rheumatic fever, and arthritis. She notes a long history of palpitations with a recent increase in the frequency. She reports abrupt palpitations that would previously terminate with vagal maneuvers. She states her episodes will no longer terminate this way and has been in the ED approximately three times in the past year for the same. She does report the need for adenosine on one occasion (of note, we do not have EKGs of her arrhythmia). She recently wore a ZIO which showed brief episodes of an atach. She presents today to review her arrhythmia and potential treatment options. PAST MEDICAL HISTORY Diagnosis Date Abdominal pain, right upper quadrant 07/19/13 Anxiety Cancer (HCC) Depressive disorder, not elsewhere classified Irritable bowel syndrome Other specified disorder of gallbladder 07/19/13 PAST SURGICAL HISTORY Procedure Laterality Date APPENDECTOMY HX BOWEL RESECTION HX 1990 CHOLECYSTECTOMY HX 2016 COLECTOMY PARTIAL W/ANASTOMOSIS 1991 Hemicolectomy, following laparotomy EXPLORATORY LAPAROTOMY CELIOTOMY W/WO BIOPSY SPX 1991 Laparotomy, exp HERNIA REPAIR HX HYSTERECTOMY HX 1990 LAMINECTOMY W/O FFD 1/2 VERT SEG LUMBAR Laminectomy, lumbar, times 2 LAPAROSCOPY COLECTOMY PARTIAL W/ANASTOMOSIS LAPAROSCOPY SURG CHOLECYSTECTOMY 07/19/2013 OPEN RX ANKLE DISLOCATN+FIXATN PAST SURGICAL HISTORY OF 03/04/2021 Excision of Basal Cell Skin Cancer Posterior Neck REPAIR FIRST ABDOMINAL WALL HERNIA Hernia repair, incisional TONSILLECTOMY PRIMARY/SECONDARY Tonsillectomy TOTAL ABDOMINAL HYSTERECT W/WO RMVL TUBE OVARY 1991 Hysterectomy, TITA/BSO SOCIAL HISTORY Social History Tobacco Use Smoking status: Former Current packs/day: 0.00 Types: Cigarettes Quit date: 11/03/2013 Years since quittin.5 Smokeless tobacco: Never Tobacco comments: smokes 3 cigs daily. is trying to quit Substance Use Topics Alcohol use: No Drug use: No FAMILY HISTORY Adopted: Yes Problem Relation Age of Onset other (Other) Mother Mast syndrome; brain deterioration Heart Failure Father Diabetes Maternal Grandmother Diabetes Maternal Grandfather other (palpitations) Sister other (Other) Maternal Aunt Mast syndrome, see above Coronary Artery Disease Maternal Aunt ALLERGIES: ALLERGIES Allergen Reactions Barbiturates Morphine Sulfa (Sulfonamide * MEDICATIONS: lisinopril (ZESTRIL) 10 mg tablet Take 10 mg by mouth once daily. naproxen (NAPROSYN) 500 mg tablet Take 500 mg by mouth two times a day with meals. gabapentin (NEURONTIN) 300 mg capsule Take 300 mg by mouth once daily. bisoprolol (ZEBETA) 5 mg tablet Take 0.5 tablets by mouth once daily. REVIEW OF SYSTEMS: GENERAL: Negative for: Weight loss or gain, Fever or Chills, Weakness and Sleep difficulties. HEENT: Positive for:Glasses NECK: Negative for: Swelling, Pain, Stiffness RESPIRATORY: Negative for: Cough, Blood in Sputum, Shortness of breath, Wheezing, Apnea GASTROINTESTINAL: Negative for: Trouble swallowing, Heartburn, Change in bowel habits, Blood in stool, Dark black stools MUSCULOSKELETAL: Negtive for: Muscle or joint pain, stiffness, Joint swelling NEUROLOGIC/PSYCHIATRIC: Negative for: Weakness, Paralysis, Numbness, Tingling, Tremor, Nervousness or anxiety, Depressed mood, Memory loss SKIN: Negative for: Rash, Itching HEMATOLOGICAL/LYMPHATIC : Negative for: Easy bruising, Easy bleeding ENDOCRINE: Negative for: Heat or Cold Intolerance, Excessive Sweating, Frequent Urination, Frequent Thirst Sharon Ha RN PHYSICAL EXAMINATIO (more content not included)... Normal [facility] ECG COMPLETEon 05-09-2024 ECG COMPLETE Ventricular Rate : 6 8 BPM Atrial Rate : 68 BPM P-R Interval : 130 ms QRS Duration : 80 ms Q-T Interval : 394 ms QTC Calculation(Bazett) : 418 ms Calculated P [facility] : -23 degrees Calculated R [place] [facility] : -43 degrees Calculated T [facility] : 16 degrees NORMAL SINUS RHYTHM LEFT AXIS DEVIATION LOW VOLTAGE INFERIOR MYOCARDIAL INFARCTION , AGE UNDETERMINED ANTERIOR MYOCARDIAL INFARCTION , AGE UNDETERMINED ABNORMAL ECG Confirmed by MD TEAGAN, PhD, МАРИНА ([id number]) on 05/30/2024 5:02:13 PM NAME : RENETTA PLAZA PID : [id number] : 1965 Gender : Female Race : ORD : [id number] Procedure Date : May 09 2024 11:25:37 Edit Date : May 30 2024 17:02:14 Diagnosis: NORMAL SINUS RHYTHM LEFT AXIS DEVIATION LOW VOLTAGE INFERIOR MYOCARDIAL INFARCTION , AGE UNDETERMINED ANTERIOR MYOCARDIAL INFARCTION , AGE UNDETERMINED ABNORMAL ECG Confirmed by MD TEAGAN, PhD, МАРИНА ([id number]) on 05/30/2024 5:02:13 PM Test Reason : Location : [address] [place] [address]- Overread By : MD TEAGAN, PhD,МАРИНА Edited By : MD TEAGAN, PhD,МАРИНА Referred By : JOHAN CROFT Acquired by : AMBROSIO RIOS [facility] STRESS ECHO TREADMILLon 04-18 STRESS ECHO TREADMILL Stress [employer] Burner Journeyman Report: Stress Echo [facility] J1-5 Date of service: 05/09/2024 10:11:45 AM CONTROL OFFICER Supervising physician: Quinn Flores MD PATIENT: Name: MRS. RENETTA PLAZA Age: 58 years Gender: F The supervising physician was in the department and immediately available. Final ---- Echocardiography Report: Stress Echo [facility] J1-5 Date of service: 05/09/2024 10:11:45 AM CONTROL OFFICER Ordering physician: TL KC Indication: SVT Technologist: Yadira Carballo Fellow: Cindi Hinojosa MD Interpreting physician: Quinn Flores MD PATIENT: Name: MRS. RENETTA PLAZA : 1965 Age: 58 years Gender: F Primary rhythm: sinus. Height: 171.50 cm BSA: 2.10 m Weight: 92.94 kg BMI: 31.6 kg/m Heart rate 63 bpm Blood pressure 126/72 mmHg Color Doppler was utilized to interrogate the cardiac valves assessed and spectral Doppler was utilized to determine the flow velocities and pressure gradients reported in this exam. Myocardial strain analysis was performed in this exam to aid in the assessment of cardiac function. MEASUREMENTS: Value Indexed Normal Max aortic dimension 3.3 cm Ao < 3.8 Left atrium diameter 3.9 cm (M-Mode) Left atrial volume 44 ml (biplane A-L) 21 ml/m Nader <= 34 LV ID (diastole) 4.6 cm (2D) 2.17 cm/m LV ID (systole) 2.7 cm (2D) 1.31 cm/m IVS, leaflet tips 1.0 cm (2D) Posterior wall thickness 0.9 cm (2D) Left ventricular mass 148 g (2D) 70 g/m Global peak long strain -16.9 % LV end diastolic volume 76 ml (2D 4-ch.) 36.1 ml/m 29<=EDVi<62 LV end diastolic volume 77 ml (2D biplane) 36.6 ml/m 29<=EDVi<62 Ejection Fraction 60 % (visual est.) EF > 54 FINDINGS: LEFT VENTRICLE The left ventricle is normal in size. Left ventricular systolic function is normal. Global LV myocardial strain is normal. The relative regional strain ratio is 0.4 (a score of greater than 1 is sensitive and specific for the diagnosis of cardiac amyloidosis). There is a single false tendon at the mid ventricle. Mitral annular lateral E/e': 6.9. Mitral annular septal E/e': 6.9. Wall Motion: Rest: All scored segments are normal. Stress: All scored segments are normal. RIGHT VENTRICLE The right ventricle is normal in size. Right ventricular systolic function is normal. RV systolic tissue Doppler velocity is 16.0 cm/s. Estimated right ventricular systolic pressure is not reported due to an insufficient tricuspid regurgitation signal. Estimated right atrial pressure is 3 mmHg (although IVC not seen). LEFT ATRIUM The left atrial cavity is normal in size. RIGHT ATRIUM The right atrial cavity is normal in size. MITRAL VALVE There is mild (1+) mitral valve regurgitation. There is mild thickening. The pressure half time is 59 msec. The peak mitral E/A ratio is 0.99. The average mitral E/e' ratio is 6.9. The mitral flow deceleration time is 205 msec. TRICUSPID VALVE There is trace tricuspid valve regurgitation. There is no thickening. AORTIC VALVE There is no aortic valve regurgitation. Tricuspid aortic valve. There is mild thickening. There is mild calcification involving the commissures. The peak gradient is 7 mmHg (peak velocity = 131.1 cm/s). The mean gradient is 4 mmHg. The aortic VTI is 31.2 cm. The mean velocity in the aortic valve is 89.1 cm/s. PULMONIC VALVE There is no pulmonic valve regurgitation. There is no thickening. The peak gradient is 4 mmHg. AORTA The visualized aorta is normal in size. Measurements - Mid ascending aorta 3.3 cm. PERICARDIUM There is a trivial pericardial effusion. There is an epicardial fat pad. CORONARY ARTERIES The coronary arteries are unseen or not interrogated. STRESS ECHO Peak HR 146 bpm. (92 % MPHR) Peak BP 196 mmHg/64 mmHg. The left ventricular cavity size is decreased with stress. CONCLUSIONS: - Exam indication: SVT - The exercise stress echo was negative for ischemia at 92 % of MPHR (7.3 METS). No regional wall motion abnormality seen at heart rate achieved. No definite ischemia suggested, early relaxation at apex post stress. - The left ventricle is normal in size. Left ventricular systolic function is normal. EF = 60 5% (visual est.) - The right ventricle is normal in size. Right ventricular systolic function is normal. - The patient has not had a prior CC echocardiographic exam for comparison. Final ---- Stress ECG Report: Stress Echo [facility] J1-5 Date of service: 05/09/2024 10:11:45 AM CONTROL OFFICER Ordering physician: TL KC content development specialist: Candelaria Hill Fellow: Cindi Hinojosa MD (more content not included)... Normal [facility] JADA BY IFA WITH REFLEXon Nuclear Ab Ql (S) Negative Normal Negative [facility] Comment on above: Order Comment: Speci men Type: BLOOD SPECIMENOrdering Facility: [facility] Address: [address] [place] [address] Result Comment: Anti -nuclear antibody test is used as an aid in diagnosis of systemic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 Phone: [phone] Determination of erythrocyte mean corpuscular volume (MCV)on 01-22-2022 MCV (RBC) [Entitic vol] 93.4 fL 81-99 [facility] Work Phone: [phone] Hematocrit Auto (Bld) [Volum e fraction]on 01-22-2022 Hematocrit (Bld) [Volume fraction] 39.7 % 37-47 [facility] Work Phone: [phone] Laboratory - Chemistry and C hemistry - challengeon 01-22-2022 CO2 [Moles/Vol] 27.0 mmol/L 21.0-32.0 [facility] Work Phone: [phone] Magnesium [Mass/Vol] 2.1 mg/dL 1.6-2.6 [facility] Work Phone: [phone] T4 [Mass/Vol] 10.0 ug/dL 4.8-13.9 [facility] Work Phone: [phone] Urea nitrogen/Creatinine [Mass ratio] 18.1 mg/mg 10-20 [facility] Work Phone: [phone] Laboratory - Hematology and Cell countson 01-22-2022 Erythrocyte distribution width (RBC) [Entitic vol] 44.3 fL 35.1-43.9 [facility] Work Phone: [phone] Erythrocyte distribution width (RBC) [Ratio] 12.9 % 11.6-14.6 [facility] Work Phone: [phone] MCH (RBC) [Entitic mass] 31.3 pg 27.0-32.0 [facility] Work Phone: [phone] MCHC Auto (RBC) [Mass/Vol]on 01-22-2022 MCHC (RBC) [Mass/Vol] 33.5 g/dL 32-36 [facility] Work Phone: No Panel Informationon 01-22 Estimated GFR (MDRD) Amer 69 mL/min >60 [facility] Work Phone: Comment on above: GFR Calc Estimated GFR (MDRD) Non-Af Amer 57 mL/min >60 [facility] Work Phone: Comment on above: Non- GFR Calc Thyroid Stimulating Hormone (TSH) 1.11 uIU/mL 0.358-3.74 [facility] Work Phone: Platelets bldon 01-22-2022 Platelets (Bld) [#/Vol] 287 10*3/uL 150-450 [facility] Work Phone: [phone] Serum or plasma calcium drea urement (mass/volume)on 01-22-2022 Calcium [Mass/Vol] 9.2 mg/dL 8.5-10.1 [facility] Work Phone: [phone] Serum or plasma creatinine m easurement (mass/volume)on 01-22-2022 Creatinine [Mass/Vol] 1.05 mg/dL 0.55-1.02 [facility] Work Phone: Comment on above: The validity of the calculated GFR & GFRAA in patients over 70 years has not been determined. Clinical correlation is essential. Serum or plasma urea nitroge n measurement (mass/volume)on 01-22-2022 Urea nitrogen [Mass/Vol] 19 mg/dL 7-18 [facility] Work Phone: [phone] Thin prep Papanicolaou smear with manual screeningon 01-22-2022 Thin prep Papanicolaou smear with manual screening 6 5-15 [facility] Work Phone: [phone] Absolute lymphocyte counton 11-27-2021 Lymphocytes Auto (Unsp spec) [#/Vol] 4.19 10*3/uL 0.83-4.51 [facility] Work Phone: [phone] Basophil percentageon 2021 Basophils/100 WBC (Bld) 0.3 % 0-1 [facility] Work Phone: [phone] Chloride [Moles/Vol] 106 mmol/L 98-107 [facility] Work Phone: Eosinophils/100 WBC (Bld) 1.8 % 0-5 [facility] Work Phone: Glucose [Mass/Vol] 104 mg/dL 74-106 [facility] Work Phone: Comment on above: Fasting Glucose resu lt from 100 to 125 mg/dL suggests IMPAIRED HOMEOSTASIS per A.D.A. criteria. Neutrophils (Bld) [#/Vol] 4.0 10*3/uL 2.0-7.7 [facility] Work Phone: Neutrophils/100 WBC (Bld) 43.9 % 47-70 [facility] Work Phone: Potassium [Moles/Vol] 3.8 mmol/L 3.5-5.1 [facility] Work Phone: Sodium [Moles/Vol] 139 mmol/L 136-145 [facility] Work Phone: WBC (Bld) [#/Vol] 9.1 10*3/uL 4.4-11.0 [facility] Work Phone: Blood erythrocytes count (nu mber/volume)on 11-27-2021 RBC (Bld) [#/Vol] 4.83 10*6/uL 4.2-5.4 [facility] Work Phone: Blood hemoglobin measurement (mass/volume)on 11-27-2021 Hemoglobin (Bld) [Mass/Vol] 14.7 g/dL 12.0-15.0 [facility] Work Phone: Blood lymphocytes/100 leukoc yteson 11-27-2021 Lymphocytes/100 WBC (Bld) 46.1 % 19-41 [facility] Work Phone: Blood monocytes/100 leukocyt eson 11-27-2021 Monocytes/100 WBC (Bld) 7.7 % 0-10 [facility] Work Phone: Blood platelet mean volumeon 11-27-2021 Platelet mean volume (Bld) [Entitic vol] 9.6 fL 6.2-12.0 [facility] Work Phone: [phone] Determination of erythrocyte mean corpuscular volume (MCV)on 11-27-2021 MCV (RBC) [Entitic vol] 92.1 fL 81-99 [facility] Work Phone: [phone] Hematocrit Auto (Bld) [Volum e fraction]on 11-27-2021 Hematocrit (Bld) [Volume fraction] 44.5 % 37-47 [facility] Work Phone: [phone] Laboratory - Chemistry and C hemistry - challengeon 11-27-2021 CO2 [Moles/Vol] 28.0 mmol/L 21.0-32.0 [facility] Work Phone: [phone] Magnesium [Mass/Vol] 2.2 mg/dL 1.6-2.6 [facility] Work Phone: [phone] Urea nitrogen/Creatinine [Mass ratio] 15.7 mg/mg 10-20 [facility] Work Phone: [phone] Laboratory - Hematology and Cell countson 11-27-2021 Erythrocyte distribution width (RBC) [Entitic vol] 44.4 fL 35.1-43.9 [facility] Work Phone: [phone] Erythrocyte distribution width (RBC) [Ratio] 13.2 % 11.6-14.6 [facility] Work Phone: [phone] Immature granulocytes/100 WBC (Bld) 0.200 % 0.0-0.9 [facility] Work Phone: [phone] Comment on above: IG% - Immature Granu locytes (promyelocytes, myelocytes and metamyelocytes) > 1% indicates that a LEFT SHIFT is Present. MCH (RBC) [Entitic mass] 30.4 pg 27.0-32.0 [facility] Work Phone: [phone] Nucleated RBC/100 WBC (Bld) [Ratio] 0 % 0-5 [facility] Work Phone: [phone] MCHC Auto (RBC) [Mass/Vol]on 11-27-2021 MCHC (RBC) [Mass/Vol] 33.0 g/dL 32-36 [facility] Work Phone: No Panel Informationon 11-27 Estimated Creatinine Clearance Calc 62.83 ml/min [facility] Work Phone: Estimated GFR (MDRD) Amer 72 mL/min >60 [facility] Work Phone: Comment on above: GFR Calc Estimated GFR (MDRD) Non-Af Amer 59 mL/min >60 [facility] Work Phone: Comment on above: Non- GFR Calc Thyroid Stimulating Hormone (TSH) 1.42 uIU/mL 0.358-3.74 [facility] Work Phone: Platelets bldon 11-27-2021 Platelets (Bld) [#/Vol] 342 10*3/uL 150-450 [facility] Work Phone: Serum or plasma calcium drea urement (mass/volume)on 11-27-2021 Calcium [Mass/Vol] 9.2 mg/dL 8.5-10.1 [facility] Work Phone: Serum or plasma creatinine m easurement (mass/volume)on 11-27-2021 Creatinine [Mass/Vol] 1.02 mg/dL 0.55-1.02 [facility] Work Phone: Comment on above: The validity of the calculated GFR & GFRAA in patients over 70 years has not been determined. Clinical correlation is essential. Serum or plasma urea nitroge n measurement (mass/volume)on 11-27-2021 Urea nitrogen [Mass/Vol] 16 mg/dL 7-18 [facility] Work Phone: Thin prep Papanicolaou smear with manual screeningon 11-27-2021 Thin prep Papanicolaou smear with manual screening 5 5-15 [facility] Work Phone: No Panel Informationon 09-02 SARS-CoV-2 Antigen (Rapid) [facility] Work Phone: Vital Signs Date Time Vital Sign Value Performing Clinician Faci lity 11-15-2024 11:04-0400 Body temperature 97.5 [degF] Kitty Krystian CHIEF BUSINESS DEVELOPMENT OFFICER-C Work Phone: [facility] 11-15-2024 11:04-0400 Body weight 92.53 kg Kitty Krystian CHIEF BUSINESS DEVELOPMENT OFFICER-C Work Phone: [facility] 11-15-2024 11:04-0400 Diastolic blood pressure 75 mm[Hg] Kitty Krystian CHIEF BUSINESS DEVELOPMENT OFFICER-C Work Phone: [facility] 11-15-2024 11:04-0400 Heart rate 58 /min Kitty Krystian CHIEF BUSINESS DEVELOPMENT OFFICER-C Work Phone: [facility] 11-15-2024 11:04-0400 Respiratory rate 14 /min Kitty Krystian CHIEF BUSINESS DEVELOPMENT OFFICER-C Work Phone: [facility] 11-15-2024 11:04-0400 SaO2% (BldA) [Mass fraction] 97 % Kitty Krystian CHIEF BUSINESS DEVELOPMENT OFFICER-C Work Phone: [facility] 11-15-2024 11:04-0400 Systolic blood pressure 103 mm[Hg] Kitty Krystian CHIEF BUSINESS DEVELOPMENT OFFICER-C Work Phone: [facility] 08-30-2024 13:36-0500 Body temperature 98.1 [degF] Kitty Krystian CHIEF BUSINESS DEVELOPMENT OFFICER-C Work Phone: [facility] 08-30-2024 13:36-0500 Body weight 93.44 kg Kitty Krystian CHIEF BUSINESS DEVELOPMENT OFFICER-C Work Phone: [facility] 08-30-2024 13:36-0500 Diastolic blood pressure 65 mm[Hg] Kitty Krystian CHIEF BUSINESS DEVELOPMENT OFFICER-C Work Phone: [facility] 08-30-2024 13:36-0500 Heart rate 72 /min Kitty Krystian CHIEF BUSINESS DEVELOPMENT OFFICER-C Work Phone: [facility] 08-30-2024 13:36-0500 Respiratory rate 16 /min Kitty Krystian CHIEF BUSINESS DEVELOPMENT OFFICER-C Work Phone: [facility] 08-30-2024 13:36-0500 SaO2% (BldA) [Mass fraction] 98 % Kitty Boland CHIEF BUSINESS DEVELOPMENT OFFICER-C Work Phone: [facility] 08-30-2024 13:36-0500 Systolic blood pressure 107 mm[Hg] Kitty Boland CHIEF BUSINESS DEVELOPMENT OFFICER-C Work Phone: [facility] 05-09-2024 13:09-0400 Body height 170.2 cm Johan Croft MD Work Phone: [facility] 05-09-2024 13:09-0400 Body mass index (BMI) [Ratio] 31.48 kg/m2 Johan Croft MD Work Phone: [facility] 05-09-2024 13:09-0400 Body weight 91.17 kg Johan Croft MD Work Phone: [facility] 05-09-2024 13:09-0400 Diastolic blood pressure 66 mm[Hg] Johan Croft MD Work Phone: [facility] 05-09-2024 13:09-0400 Heart rate 68 /min Johan Croft MD Work Phone: [facility] 05-09-2024 13:09-0400 Systolic blood pressure 110 mm[Hg] Johan Croft MD Work Phone: [facility] 04-06-2024 10:59-0400 Diastolic blood pressure 80 mm[Hg] Tl Kc MD Work Phone: [facility] 04-06-2024 10:59-0400 Systolic blood pressure 135 mm[Hg] Tl Kc MD Work Phone: [facility] 04-06-2024 10:56-0400 Body height 171.5 cm Tl Kc MD Work Phone: [facility] 04-06-2024 10:56-0400 Body mass index (BMI) [Ratio] 31.62 kg/m2 Tl Kc MD Work Phone: [facility] 04-06-2024 10:56-0400 Body weight 92.94 kg Tl Kc MD Work Phone: [facility] 04-06-2024 10:56-0400 Heart rate 60 /min Tl Kc MD Work Phone: [facility] 04-06-2024 10:56-0400 SaO2% (BldA) [Mass fraction] 98 % Tl Kc MD Work Phone: [facility] 06-16-2023 09:44-0400 Body height 170.[address] [place] [facility] 06-16-2023 09:44-0400 Body mass index (BMI) [Ratio] 33.2 kg/m2 [facility] 09:44-0400 Body weight 96.[address] Dread Cedillo [facility] 06-16-2023 09:44-0400 Diastolic blood pressure 84 mm[Hg] Dr. Canaad [facility] 06-16-2023 09:44-0400 Heart rate 72 /min Dr. Canada [facility] 06-16-2023 09:44-0400 Respiratory rate 14 /min Dr. Canada Nguyen [facility] 06-16-2023 09:44-0400 Systolic blood pressure 144 mm[Hg] Dr. Dread Cedillo [facility] 12-05-2021 16:10-0400 Body height 170.[address] Dread Cedillo Work Phone: [facility] Work Phone: 12-05-2021 16:10-0400 Body mass index (BMI) [Ratio] 35.3 kg/m2 Dr. Dread Cedillo Work Phone: [facility] Work Phone: 12-05-2021 16:10-0400 Body weight 102.[address] Dread Cedillo Work Phone: [facility] Work Phone: 12-05-2021 16:10-0400 Diastolic blood pressure 88 mm[Hg] Dr. Dread Cedillo Work Phone: [facility] Work Phone: 12-05-2021 16:10-0400 Heart rate 68 /min Dr. Dread Cedillo Work Phone: [facility] Work Phone: 12-05-2021 16:10-0400 Respiratory rate 18 /min Dr. Dread Cedillo Work Phone: [facility] Work Phone: 12-05-2021 16:10-0400 Systolic blood pressure 136 mm[Hg] Dr. Dread Cedillo Work Phone: [facility] Work Phone: 11-27-2021 13:26-0400 Diastolic blood pressure 69 mm[Hg] Dr. Dread Cedillo Work Phone: [facility] Work Phone: 11-27-2021 13:26-0400 Heart rate 80 /min Dr. Dread Cedillo Work Phone: [facility] Work Phone: 11-27-2021 13:26-0400 Respiratory rate 18 /min Dr. Dread Cedillo Work Phone: [facility] Work Phone: 11-27-2021 13:26-0400 SaO2% (BldA) [Mass fraction] 99 % Dr. Dread Cedillo Work Phone: [facility] Work Phone: 11-27-2021 13:26-0400 Systolic blood pressure 139 mm[Hg] Dr. Dread Cedillo Work Phone: [facility] Work Phone: 11-27-2021 11:45-0400 Body height 175.[address] Dread Cedillo Work Phone: [facility] Work Phone: 11-27-2021 11:45-0400 Body mass index (BMI) [Ratio] 33.5 kg/m2 Dr. Dread Cedillo Work Phone: [facility] Work Phone: 11-27-2021 11:45-0400 Body temperature 96.6 [degF] Dr. Dread Cedillo Work Phone: [facility] Work Phone: 11-27-2021 11:45-0400 Body weight 102.[address] Dread Cedillo Work Phone: [facility] Work Phone: 11-07-2021 14:21-0400 Body mass index (BMI) [Ratio] 35.2 kg/m2 Dr. Dread Cedillo Work Phone: [facility] Work Phone: 11-07-2021 14:21-0400 Body temperature 98.2 [degF] Dr. Dread Cedillo Work Phone: [facility] Work Phone: 11-07-2021 14:21-0400 Body weight 102.[address] Dread Cedillo Work Phone: [facility] Work Phone: 11-07-2021 14:21-0400 Diastolic blood pressure 91 mm[Hg] Dr. Dread Cedillo Work Phone: [facility] Work Phone: 11-07-2021 14:21-0400 Heart rate 78 /min Dr. Dread Cedillo Work Phone: [facility] Work Phone: 11-07-2021 14:21-0400 Respiratory rate 18 /min Dr. Dread Cedillo Work Phone: [facility] Work Phone: 11-07-2021 14:21-0400 SaO2% (BldA) [Mass fraction] 98 % Dr. Dread Cedillo Work Phone: [facility] Work Phone: 11-07-2021 14:21-0400 Systolic blood pressure 132 mm[Hg] Dr. Dread Cedillo Work Phone: [facility] Work Phone: 09-24-2021 08:36-0500 Body mass index (BMI) [Ratio] 35.4 kg/m2 Dr. Dread Cedillo Work Phone: [facility] Work Phone: 09-24-2021 08:36-0500 Body weight 102.[address] Dread Cedillo Work Phone: [facility] Work Phone: 09-03-2021 12:40-0500 Body temperature 97.9 [degF] Dr. Dread Cedillo Work Phone: [facility] Work Phone: 09-03-2021 12:40-0500 Diastolic blood pressure 99 mm[Hg] Dr. Dread Cedillo Work Phone: [facility] Work Phone: 09-03-2021 12:40-0500 Heart rate 54 /min Dr. Dread Cedillo Work Phone: [facility] Work Phone: 09-03-2021 12:40-0500 Respiratory rate 18 /min Dr. Dread Cedillo Work Phone: [facility] Work Phone: 09-03-2021 12:40-0500 SaO2% (BldA) [Mass fraction] 100 % Dr. Dread Cedillo Work Phone: [facility] Work Phone: 09-03-2021 12:40-0500 Systolic blood pressure 143 mm[Hg] Dr. Dread Cedillo Work Phone: [facility] Work Phone: 09-03-2021 10:58-0500 Body mass index (BMI) [Ratio] 33.8 kg/m2 Dr. Dread Cedillo Work Phone: [facility] Work Phone: 09-03-2021 10:58-05[address] Body weight [address] Dread Cedillo Work Phone: [facility] Work Phone: Encounters Encounter Date Encounter Type Care Provider Facility Start: 03-09-2025 End: 03-09-2025 Patient encounter procedure Juwan Simms DO [facility] Work Phone: Start: 03-09-2025 End: 03-09-2025 ambulatory Kitty Boland CHIEF BUSINESS DEVELOPMENT OFFICER-C Work Phone: -[facility] Start: 01-19-2025 End: 01-19-2025 Orders Only Johan Croft MD Work Phone: Cardiology Comment on above: SVT (supraventricula r tachycardia) (HCC) (Primary Dx) Start: 01-18-2025 End: 01-18-2025 ambulatory Johan Croft MD Work Phone: Cardiology Start: 11-15-2024 End: 11-15-2024 Patient encounter procedure Marina Huertas [facility] Work Phone: Start: 11-15-2024 End: 11-15-2024 ambulatory Marina Huertas Facility:[facility] Start: 11-14-2024 End: 11-14-2024 ambulatory Kitty Boland CHIEF BUSINESS DEVELOPMENT OFFICER-C Work Phone: [facility] Work Phone: Start: 11-14-2024 End: 11-14-2024 Patient encounter procedure Kitty Boland CHIEF BUSINESS DEVELOPMENT OFFICER-C -[facility] Work Phone: Start: 11-14-2024 End: 11-14-2024 ambulatory Kitty Boland Facility:[facility] Start: 11-12-2024 End: 11-17-2024 ambulatory Johan Croft MD Work Phone: Cardiology Comment on above: Ecg results after fi bulation Start: 11-11-2024 End: 11-11-2024 ambulatory Tl Kc MD Work Phone: Cardiology Comment on above: Palpitations (Primar y Dx); SVT (supraventricular tachycardia) (HCC) Start: 11-11-2024 End: 11-11-2024 Telemedicine consultation with patient Tl Kc MD Work Phone: Cardiology Start: 11-04-2024 End: 11-04-2024 ambulatory Kitty Boland CHIEF BUSINESS DEVELOPMENT OFFICER-C Work Phone: [facility] Work Phone: Start: 11-04-2024 End: 11-04-2024 Patient encounter procedure Kittyelian Boland CHIEF BUSINESS DEVELOPMENT OFFICER-C -Cat Scan, [facility] Work Phone: Start: 11-04-2024 End: 11-04-2024 ambulatory Kitty Boland Facility:[facility] Start: 10-24-2024 End: 10-24-2024 ambulatory Kitty Boland CHIEF BUSINESS DEVELOPMENT OFFICER-C Work Phone: [facility] Work Phone: Start: 10-24-2024 End: 10-24-2024 Patient encounter procedure Kittyelian Boland CHIEF BUSINESS DEVELOPMENT OFFICER-C -Ultrasound, [facility] Work Phone: Start: 10-24-2024 End: 10-24-2024 ambulatory Kitty Krystian Facility:[facility] Start: 09-16-2024 ambulatory Marina Huertas Facility:[facility] Start: 09-16-2024 Non-patient / Non-visit Dr. Jhon Rogers MD -[facility] Start: 09-16-2024 End: 09-16-2024 Patient encounter procedure Marina Huertas PA -Cardiovascular Services Work Phone: Start: 09-16-2024 End: 09-16-2024 ambulatory Marina Huertas Facility:[facility] Start: 09-05-2024 End: 09-05-2024 Patient encounter procedure Juwanenrique Simms DO -[facility] Work Phone: Start: 09-05-2024 End: 09-05-2024 ambulatory Juwan Simms Facility:[facility] Start: 09-02-2024 End: 09-02-2024 Telephone encounter Tl Kc MD Work Phone: Cardiology Comment on above: Appointment Start: 08-31-2024 End: 08-31-2024 Patient encounter procedure Juwandia Simms DO -Ultrasound, [facility] Work Phone: Start: 08-30-2024 End: 08-30-2024 Patient encounter procedure Marina Huertas PA -[facility] Work Phone: Start: 08-30-2024 End: 08-31-2024 ambulatory Juwandia Simms Facility:[facility] Start: 08-24-2024 End: 08-24-2024 Patient encounter procedure Kitty Boland CHIEF BUSINESS DEVELOPMENT OFFICER-C -Radiology, [facility] Work Phone: Start: 08-24-2024 End: 08-24-2024 ambulatory Kitty Krystian Facility:[facility] Start: 07-26-2024 End: 07-26-2024 Patient encounter procedure Kitty Boland CHIEF BUSINESS DEVELOPMENT OFFICER-C -[facility] Work Phone: Start: 07-26-2024 End: 07-26-2024 ambulatory [facility] Facility:[facility] Start: 06-14-2024 ambulatory Health Risk Assessment Facility:[facility] Start: 05-10-2024 End: 05-10-2024 Telephone encounter Johan Croft MD Work Phone: Cardiology Comment on above: Received Outside Med ical Records Start: 05-09-2024 End: 05-09-2024 Patient encounter procedure Johan Croft MD Work Phone: Cardiology Comment on above: Paroxysmal SVT (supr aventricular tachycardia) (HCC) (Primary Dx); SVT (supraventricular tachycardia) (HCC); Palpitations; Atypical chest pain; Atrial tachycardia (HCC) Start: 05-09-2024 End: 05-09-2024 ambulatory JOHAN CROFT Facility:[facility] Start: 05-09-2024 End: 05-09-2024 ambulatory TL KC Facility:[facility] Start: 04-06-2024 End: 04-06-2024 Orders Only Tl Kc MD Work Phone: Cardiology Comment on above: SVT (supraventricula r tachycardia) (HCC) (Primary Dx) Event (Zio) SVT (supraventricula r tachycardia) (HCC) (Primary Dx); Palpitations; Paroxysmal SVT (supraventricular tachycardia) (HCC); Atypical chest pain; Shortness of breath Start: 03-14-2024 Orders Only Tl Kc MD Work Phone: Cardiology Comment on above: Congestive heart cristy lure, unspecified HF chronicity, unspecified heart failure type (HCC) (Primary Dx) April 04 Appointmen t with Fabien Kc Start: 11-17-2023 End: 11-17-2023 ambulatory [facility] Work Phone: Start: 11-17-2023 End: 11-17-2023 Patient encounter procedure [facility]-Radiology, [facility] Work Phone: Start: 07-01-2023 End: 07-01-[address] Dread Cedillo [facility] Work Phone: Start: 07-01-2023 End: 07-01-[address] Dread Cedillo [facility]-Laboratory Work Phone: Start: 06-24-2023 End: 06-24-[address] Dread Cedillo [facility] Work Phone: Start: 06-24-2023 End: 06-24-[address] Dread Cedillo [facility]-Ultrasound, [facility] Work Phone: Start: 06-16-2023 End: 06-16-[address] Dread Cedillo [facility] Work Phone: Start: 04-29-2023 End: 04-29-[address] Dread Cedillo [facility]enterology Work Phone: Start: 06-26-2022 End: 06-26-2022 ambulatory [facility] Work Phone: Start: 06-26-2022 End: 06-26-2022 Patient encounter procedure [facility]-Radiology, [facility] Start: 01-24-2022 End: 01-24-[address] Dread Cedillo Work Phone: [facility]-Pulmonary Services/Neurology Start: 01-22-2022 End: 01-22-[address] Dread Cedillo Work Phone: [facility] Start: 12-30-2021 Non-patient / Non-visit Dr. Dread Cedillo Work Phone: [facility] Start: 12-30-2021 End: 12-30-[address] [facility] Start: 12-05-2021 End: 12-05-[address] Dread Cedillo Work Phone: [facility] Start: 11-27-2021 Follow-up status Dr. Dread pollack Work Phone: [facility] Start: 11-27-2021 End: 11-27-2021 Emergency department patient visit Dr. Dread Cedillo Work Phone: [facility]-Emergency Department Start: 11-07-2021 End: 11-07-[address] Dread Cedillo Work Phone: [facility] Start: 11-05-2021 End: 11-05-[address] Dread Cedillo Work Phone: [facility] Start: 09-24-2021 End: 09-24-[address] Dread Cedillo Work Phone: [facility] Start: 09-03-2021 Non-patient / Non-visit Dr. Dread Cedillo Work Phone: [facility] Start: 09-03-2021 End: 09-03-2021 Admission to same day surgery center Dr. Dread Cedillo Work Phone: [facility]-Endoscopy Start: 07-30-2021 End: 07-30-[address] Dread Cedillo Work Phone: [facility] Procedures Date Procedure Procedure Detail Performing Clinician Start: 11-14-2024 US scan of thyroid Karo long Boland CHIEF BUSINESS DEVELOPMENT OFFICER-C Work Phone: Start: 11-04-2024 CT of soft tissues o f neck with contrast Kitty Krystian CHIEF BUSINESS DEVELOPMENT OFFICER-C Work Phone: Start: 10-24-2024 Ultrasonography of t hyroid and parathyroid Kitty Krystian CHIEF BUSINESS DEVELOPMENT OFFICER-C Work Phone: Start: 08-31-2024 Ultrasound elastogra phy of liver Kitty Krystian CHIEF BUSINESS DEVELOPMENT OFFICER-C Work Phone: Start: 08-24-2024 X-ray of foot, three or more views Kitty Boland CHIEF BUSINESS DEVELOPMENT OFFICER-C Work Phone: Start: 07-26-2024 Screening mammography R achel Krystian CHIEF BUSINESS DEVELOPMENT OFFICER-C Work Phone: Start: 11-17-2023 X-ray of lumbosacral spine Start: 06-24-2023 Ultrasound elastogra phy of liver Dr. Dread Cedillo Start: 06-26-2022 Plain X-ray of femur Start: 06-26-2022 Pelvis X-ray Start: 12-30-2021 Cardiovascular stres s test using pharmacologic stress agent Dr. Dread Cedillo Work Phone: Start: 09-02-2021 SARS-CoV-2 Antigen (Rapid) Dr. Dread Cedillo Work Phone: Plan of Treatment Date Care Activity Detail Author Start: 2038 RSV Vaccine (1 - 1-dose 75+ series) RSV Vaccine (1 - 1-dose 75+ series) [facility] Start: 04-06-2027 Diabetes Screening Diabetes Screenin g [facility] Start: 07-17-2025 End: 07-17-2025 Patient encounter procedure 07/17/2025 8:00 AM EST Office Visit Cardiology [address] [place] [address] Johan Croft MD [address] [place] [address] Paroxysmal SVT (supraventricular tachycardia) Cardiology Comment on above: Paroxysmal SVT (supr aventricular tachycardia) Start: 07-17-2025 End: 07-17-2025 ambulatory 07/17/2025 7:00 AM EST Procedure Cardiology [address] [place] [address] Paroxysmal SVT (supraventricular tachycardia) Cardiology Comment on above: Paroxysmal SVT (supr aventricular tachycardia) Start: 11-11-2024 End: 11-11-2024 ambulatory 11/11/2024 12:30 PM EDT [facility] Cardiology [address] [id number] Tl Waller MD [address] [facility] Desk [address] [place] [address] Dx: Chronic combined systolic and diastolic congestive heart failure Cardiology Comment on above: Dx: Chronic combined systolic and diastolic congestive heart failure Start: 11-03-2024 Urine microalbumin profile DTaP,Tdap,Td Vaccine (2 - Td or Tdap) [facility] Start: 05-09-2024 End: 05-09-2024 ambulatory 05/09/2024 1:15 PM EDT Results Only Cardiology [address] [place] [id number] DX: HEART FAILURE Cardiology Comment on above: DX: HEART FAILURE Start: 05-09-2024 End: 05-09-2024 Patient encounter procedure Cardiology Comment on above: DX: HEART FAILURE Start: 04-17-2024 Covid-19 Vaccine ( season) Covid-19 Vaccine ( season) [facility] Start: 04-17-2024 Influenza vaccination Influenza Vacc ine (#1) [facility] Start: 04-06-2024 End: 07-06-2024 JADA BY IFA WITH REFLEX [facility] Comment on above: Expected: 04/06/2024 , Expires: 07/06/2024 Start: 04-04-2024 End: 04-04-2024 Patient encounter procedure 04/04/2024 11:15 AM EDT Office Visit Cardiology [address] [id number] Tl Waller MD [address] [employer] [address]k [address] [place], [place] [id number] Dx: Chronic combined systolic and diastolic congestive heart failure Cardiology Comment on above: Dx: Chronic combined systolic and diastolic congestive heart failure Start: 04-04-2024 End: 04-04-2024 ambulatory 04/04/2024 10:30 AM EDT Results Only Cardiology [address] [id number] CHF Cardiology Comment on above: CHF Start: 2023 RSV Vaccine (1 - 1-dose 60+ series) RSV Vaccine (1 - 1-dose 60+ series) [facility] Start: 04-17-2023 Covid-19 Vaccine ( season) Covid-19 Vaccine ( season) [facility] Start: 11-05-2021 Patient referral [facility] Work Phone: Start: 09-03-2021 Colonoscopy w/biopsy single/multiple COLONOSCOPY AND BIOPSY [facility] Work Phone: Start: 09-03-2021 Colsc flx w/rmvl of tumor polyp lesion snare tq COLONOSCOPY W/LESION REMOVAL [facility] Work Phone: Start: 2013 Pneumococcal Vaccine : 50+ (2 of 2 - PCV) Pneumococcal Vaccine: 50+ (2 of 2 - PCV) [facility] Start: 2013 Shingrix Vaccine (1 of 2) Shingrix Vaccine (1 of 2) [facility] Start: 01-19-2013 Screening for malignant neoplasm of breast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 Kitty Boland CHIEF BUSINESS DEVELOPMENT OFFICER-C Primary Care Provider Active Start: September 16, 2024 End: September 16, 2024 SUSAN Alvarado Attending Provider Active Star t: September 16, 2024 End: September 16, 2024 SUSAN Alvarado Referring Provider Active Star t: September 16, 2024 End: September 16, 2024 Team Status: Active Member Role Status Dates Kitty Boland CHIEF BUSINESS DEVELOPMENT OFFICER-C Primary Care Provider Active Start: September 16, 2024 Dr. Jhon Rogers MD Attending Provider Active S tart: September 16, 2024 SUSAN Alvarado Referring Provider Active Star t: September 16, 2024 Team Status: Inactive Member Role Status Dates Kittyelian Boland CHIEF BUSINESS DEVELOPMENT OFFICER-C Primary Care Provider Active Start: October 24, 2024 End: October 24, 2024 Kitty Boland CHIEF BUSINESS DEVELOPMENT OFFICER-C Attending Provider Active St art: October 24, 2024 End: October 24, 2024 Kitty Boland , CHIEF BUSINESS DEVELOPMENT OFFICER-C Referring Provider Active St art: October 24, 2024 End: October 24, 2024 Team Status: Inactive Member Role Status Dates Kittyelian Boland CHIEF BUSINESS DEVELOPMENT OFFICER-C Primary Care Provider Active Start: November 04, 2024 End: November 04, 2024 Kitty Boland CHIEF BUSINESS DEVELOPMENT OFFICER-C Attending Provider Active St art: November 04, 2024 End: November 04, 2024 Kitty Boland , CHIEF BUSINESS DEVELOPMENT OFFICER-C Referring Provider Active St art: November 04, 2024 End: November 04, 2024 Team Status: Inactive Member Role Status Dates Kittyelian Boland , CHIEF BUSINESS DEVELOPMENT OFFICER-C Primary Care Provider Active Start: November 14, 2024 End: November 14, 2024 Kitty Boland CHIEF BUSINESS DEVELOPMENT OFFICER-C Attending Provider Active St art: November 14, 2024 End: November 14, 2024 Kitty Boland , CHIEF BUSINESS DEVELOPMENT OFFICER-C Referring Provider Active St art: November 14, 2024 End: November 14, 2024 Team Status: Inactive Member Role Status Dates Kittyelian Boland CHIEF BUSINESS DEVELOPMENT OFFICER-C Primary Care Provider Active Start: November 15, 2024 End: November 15, 2024 Kitty Boland , CHIEF BUSINESS DEVELOPMENT OFFICER-C Referring Provider Active St art: November 15, 2024 End: November 15, 2024 SUSAN Alvarado Attending Provider Active Star t: November 15, 2024 End: November 15, 2024 In Store Marketer Relationship Specialty Start Date End Date Dread Cedillo MD [address] [address] PCP - [facility] Family Medicine 02/14/21 In Store Marketer Relationship Specialty Start Date End Date Dread Cedillo MD [address] [place] [address] PCP - General Family Medicine 02/14/21 In Store Marketer Relationship Specialty Start Date End Date Dread Cedillo MD [address] [place] [address] PCP - [facility] Medicine 02/14/21 Team Status: Active Member Role/Relationship Status Dates Kitty Boland NP-C Primary Care Provider Active Team Status: Inactive Member Role/Relationship Status Dates ALLISON PruettC Primary Care Provider Active Start: November 14, 2024 End: November 14, 2024 LETICIA Pruett Attending Provider Active St art: November 14, 2024 End: November 14, 2024 Kitty Boland NP-C Referring Provider Active St art: November 14, 2024 End: November 14, 2024 Team Status: Inactive Member Role/Relationship Status Dates Kitty Boland NP-C Primary Care Provider Active Start: November 15, 2024 End: November 15, 2024 ALLISON PruettC Referring Provider Active St art: November 15, 2024 End: November 15, 2024 SUSAN Alvarado Attending Provider Active Star t: November 15, 2024 End: November 15, 2024 Team Status: Inactive Member Role/Relationship Status Dates Kitty Boland NP-C Primary Care Provider Active Start: March 09, 2025 End: March 09, 2025 Kitty Boland NP-C Referring Provider Active St art: March 09, 2025 End: March 09, 2025 Dr. Juwan Simms , DO Attending Provider Active Start: March 09, 2025 End: March 09, 2025 Source Comments (unrecognize d section and content) In the event this informatio n is protected by the Federal Confidentiality of Alcohol and Drug Abuse Patient Records regulations: The Federal rules restrict any use of the information to criminally investigate or prosecute any alcohol or drug abuse patient.[facility] Institute[facility] the event this information is protected by the Federal Confidentiality of Alcohol and Drug Abuse Patient Records regulations: The Federal rules restrict any use of the information to criminally investigate or prosecute any alcohol or drug abuse patient.[facility] Institute[facility] the event this information is protected by the Federal Confidentiality of Alcohol and Drug Abuse Patient Records regulations: The Federal rules restrict any use of the information to criminally investigate or prosecute any alcohol or drug abuse patient.[facility] InstituteIn the event this information is protected by the Federal Confidentiality of Alcohol and Drug Abuse Patient Records regulations: The Federal rules restrict any use of the information to criminally investigate or prosecute any alcohol or drug abuse patient.[facility] Institute[facility] the event this information is protected by the Federal Confidentiality of Alcohol and Drug Abuse Patient Records regulations: The Federal rules restrict any use of the information to criminally investigate or prosecute any alcohol or drug abuse patient.[facility] Institute[facility] the event this information is protected by the Federal Confidentiality of Alcohol and Drug Abuse Patient Records regulations: The Federal rules restrict any use of the information to criminally investigate or prosecute any alcohol or drug abuse patient.[facility] InstituteIn the event this information is protected by the Federal Confidentiality of Alcohol and Drug Abuse Patient Records regulations: The Federal rules restrict any use of the information to criminally investigate or prosecute any alcohol or drug abuse patient.[facility] Institute[facility] the event this information is protected by the Federal Confidentiality of Alcohol and Drug Abuse Patient Records regulations: The Federal rules restrict any use of the information to criminally investigate or prosecute any alcohol or drug abuse patient.[facility] InstituteIn the event this information is protected by the Federal Confidentiality of Alcohol and Drug Abuse Patient Records regulations: The Federal rules restrict any use of the information to criminally investigate or prosecute any alcohol or drug abuse patient.[facility] InstituteIn the event this information is protected by the Federal Confidentiality of Alcohol and Drug Abuse Patient Records regulations: The Federal rules restrict any use of the information to criminally investigate or prosecute any alcohol or drug abuse patient.[facility] Institute[facility] the event this information is protected by the Federal Confidentiality of Alcohol and Drug Abuse Patient Records regulations: The Federal rules restrict any use of the information to criminally investigate or prosecute any alcohol or drug abuse patient.[facility] Institute[facility] the event this information is protected by the Federal Confidentiality of Alcohol and Drug Abuse Patient Records regulations: The Federal rules restrict any use of the information to criminally investigate or prosecute any alcohol or drug abuse patient.[facility] Reason for Visit (unrecogniz ed section and content) Reason Comments Event Zio Specialty Diagnoses / Procedures Referred By Contac t Referred To Contact Cardiology / CARDIOVASCULAR MEDICINE Diagnoses SVT (supraventricular tachycardia) (HCC) Palpitations Dx: SVT (supraventricular tachycardia) (HCC) [I47.10 (ICD-10-CM)]; Palpitations [R00.2 (ICD-10-CM)] Procedures XTRNL ECG & 48 HR RECORDING ZIO PATCH Tl Waller MD [address] [address] [address] Card [facility] [place] [facility] [address] [place] [address] Referral ID Status Reason Start Date Expiration Date V isits Requested Visits Authorized [id number] Closed Patient Cleared - Admin/Chairm an/Director advise to proceed or did not respond 04/06/2024 08/16/2024 1 1 Reason Comments New Specialty Diagnoses / Procedures Referred By Contact Referred To Contact Cardiology / CARDIOVASCULAR MEDICINE Diagnoses Chronic combined systolic and diastolic congestive heart failure (HCC) Dx: Chronic combined systolic and diastolic congestive heart failure NEW PT [employer] [place] Pt calling to reschedule Procedures OFFICE/OUTPATIENT NEW MODERATE MDM 45 MINUTES NEW CHF PATIENT Self Tl Waller MD [address] [employer] [address] [address] Referral ID Status Reason Start Date Expiration Date Visits Re quested Visits Authorized [id number] Closed 04/06/2024 08/16/2024 1 1 Specialty Diagnoses / Procedures Referred By Contac t Referred To Contact Diagnoses SVT (supraventricular tachycardia) (HCC) Palpitations Procedures CONSULT TO ELECTROPHYSIOLOGY OFFICE/OUTPATIENT NEW HIGH MDM 60 MINUTES Tl Waller MD [address] [address] Referral ID Status Reason Start Date Expiration Date V isits Requested Visits Authorized [id number] Closed PCP Requested Referral 04/06/2024 04/06/2025 1 1 Reason Comments Received Outside Medical Records Reason Comments Appointment Reason Comments Follow Up INFORMATION SOURCE (unrecogn ized section and content) DATE CREATED AUTHOR 01/19/2025 [facility] DATE CREATED AUTHOR AUTHOR'S HIEN ATLAMONT 03/11/2025 [facility] FOR RECORDS PERTAINING TO PATIENTS WHO ARE OR HAVE BEEN ENROLLED IN A CHEMICAL DEPENDENCY/SUBSTANCEABUSE PROGRAM, SOME INFORMATION MAY BE OMITTED. This clinical summary was aggregated from multiple sources. Caution should be exercised in using it in the provision of clinical care. This summary normalizes information from multiple sources, and as a consequence, information in this document may materially change the coding, format and clinical context of patient data. In addition, data may be omitted in some cases. CLINICAL DECISIONS SHOULD BE BASED ON THE PRIMARY CLINICAL RECORDS. [facility] [email or web address] provides no warranty or guarantee of the accuracy or completeness of information in this document.
== END | disposition home or self-care (01) ==
PROVIDERS: PCP Nurse Practitioner Family; Referring Provider Student in an Organized Health Care Education/Training Program; Visit Provider Student in an Organized Health Care Education/Training Program
DX: M54.9 Dorsalgia, unspecified (principal)
CPT/HCPCS: 72110

== ENCOUNTER → 2025-05-25 | Outpatient (CLI) | payer OTHER, SELFPAY ==
--- NOTE | 2025-05-25 06:14 | CT_ITS ---
PROCEDURE: ABDOMEN/PELVIS WITH CONTRAST 05/25/2025 REASON FOR EXAM: DIVERTICULITIS TECHNIQUE: Procedure Code: [id number] Modality: CT Procedure: ABDOMEN/PELVIS WITH CONTRAST Coronal and Sagittal reconstruction series were provided. CONTRAST: Isovue 370 VOLUME: 95 mL One or more dose reduction techniques were used (e.g., Automated exposure control, adjustment of the mA and/or kV according to patient size, use of iterative reconstruction technique. RADIATION DOSE SUMMARY: CTDlvol: 48.07 mGy DLP: 1235.73 mGycm COMPARISON: CT abdomen and pelvis with contrast, 07/01/2021. Field FINDINGS: Lung bases: The lung bases are clear. There are no pleural effusions. Heart size is normal. There is no pericardial effusion. There is mild calcific vascular disease of the coronary arteries and visualized thoracic aorta. Liver: Normal size. No mass. Gallbladder: Surgically absent. Spleen: Normal size. There is a benign splenule. Pancreas: Normal size without evidence of mass surrounding inflammation or ductal dilation. Adrenals: Normal. Kidneys: There is a stable 2.0 cm in diameter exophytic cyst from the interpolar region of the left kidney. The kidneys are otherwise unremarkable. Bladder: Normal unenhanced appearance. Reproductive Organs: The uterus is surgically absent. The ovaries are not identified. There is no free fluid in the pelvis. There is no inguinal lymphadenopathy. Bowel: Colonic diverticulosis without diverticulitis. Appendix: Surgically absent. Lymph nodes: No suspicious lymph node enlargement. Vasculature: Mild diffuse atherosclerotic calcifications are noted. Peritoneum / Retroperitoneum: There are no abnormal intra or retroperitoneal masses or fluid collections. Status post left inguinal hernia repair. Bones: There is multilevel degenerative disc disease of the lumbar spine most severe at the L4-[address]/Abdomen/Pelvis WITH Contrast IMPRESSION: 1. There are scattered colonic diverticuli without evidence of acute inflammat ion. 2. Stable exophytic cyst from the left kidney. 3. Other findings as noted. Reading Location: [place] [address]
== END | disposition home or self-care (01) ==
LOC: CT 06:14
PROVIDERS: PCP Nurse Practitioner Family; Referring Provider Internal Medicine Gastroenterology; Visit Provider Internal Medicine Gastroenterology
DX: K57.92 Diverticulitis of intestine, part unspecified, without perforation or abscess without bleeding (principal)
CPT/HCPCS: 74177; Q9967

== ENCOUNTER → 2025-06-02 | Outpatient (CLI) | payer OTHER, SELFPAY ==
--- NOTE | 2025-06-02 12:14 | MRI_ITS ---
PROCEDURE: SPINE LUMBAR W/WO CONTRAST 06/02/2025 REASON FOR EXAM: PAIN WORSENING, BILATERAL LEG PAIN TECHNIQUE: Procedure Code: [id number] Modality: MR Procedure: SPINE LUMBAR W/WO CONTRAST Multiplanar and multisequence images were obtained without and with intravenous gadolinium-based contrast administration. CONTRAST: Yolanda scan VOLUME: 19 mL COMPARISON: 01/13/2024 FINDINGS: Normal lumbar vertebral body height and alignment without subluxation or compression fracture. Normal conus. Normal cauda equina. No retroperitoneal or aortic abnormality At L1-2, minimal annular bulging with stable mild canal narrowing. L2-3 is positive for facet degeneration. At L3-4, facet and ligamentous hypertrophy results in stable mild canal narrowing. Postsurgical changes on the right at L4-5. Inferior foraminal narrowing on the right at the same level. Similar findings were present on the prior study L5-S1 demonstrates no central or foraminal stenosis. Postsurgical changes suspected on the left Postcontrast images demonstrate no discitis or osteomyelitis. Modic type 1 endplate changes at L4-5. No abnormal cauda equina enhancement MRI/Spine Lumbar W/WO Contrast IMPRESSION: Postsurgical changes at L4-5 and L5-S1. Stable findings when compared to the p rior study Reading Location: [facility]
--- OUTSIDE RECORDS SUMMARY | 2025-06-02 12:27 | XMS RPT_ITS | CCD ---
Author Organization [facility] CliniSymn Care Team Providers Care Tree Surgeon Name Role Phone Dr. Dread Cedillo Primary [...] Provider Dr. Juwan Simms Attending Provider Santino BUSINESS ASST, BUSINESS ASST-C Darren Moore Attending Provider Dr. Dread Cedillo Primary Care Provider Unavaila ble Dr. Dread Cedillo Referring Provider Unavailable FriendDr. Echeverria Attending Provider [phone] Santino BUSINESS ASST, BUSINESS ASST-C Darren Moore Attending Provider Dread Cedillo MD Primary Care Provider Krystian BUSINESS ASST-CKitty Primary Care Provider Krystian BUSINESS ASST-C, Kitty Attending Provider [phone] Krystian BUSINESS ASST-C, Kitty Referring Provider [phone] Marina Poe Attending Provider [phone] Juwan Simms DO Attending Provider Dr. Juwan Simms DO Referring Provider Marina Poe Referring Provider [phone] Ken GARCIA, Dr. Ferreira Attending Provider [phone] TL WALLER Referring Unavailabl e NGUYEN, DREAD [...] NGUYEN, DREAD BAUM Primary Care Unavailable MONTANEZ TL KC Attending Unavailabl e NGUYEN, DREAD BAUM Primary Care Unavailable Krystian BUSINESS ASST-C, Kitty Primary Care Provider Krystian BUSINESS ASST-C, Kitty Attending Provider Krystian BUSINESS ASST-C, Kitty Referring Provider Marina Poe Attending Provider [phone] Juwan Simms DO Attending Provider Krystian BUSINESS ASST-C, Kitty Primary Care Physician Krystian BUSINESS ASST-C, Kitty Referring Provider [phone] Dr. Juwan Simms DO Attending Physician [phone] Vania Bower Attending Physician Vania Bower Referring Provider Juwan Simms Attending Unavailable Krystian, Kitty Primary Care Unavailable Juwan Simms Referring Unavailable Krystian, Kitty Primary Care Unavailable Vania Roberson Referring Unavailable Vania Roberson Attending Unavailable Jhon Rogers Attending Unavailable Krystian, Kitty Primary Care Unavailable Huertas, Marina Referring Unavailable Krystian, Kitty Primary Care Unavailable Krystian, Kitty Referring Unavailable Huertas, Marina Attending Unavailable Friend, Juwan Attending Unavailable Krystian, Kitty Primary Care Unavailable Krystian, Kitty Referring Unavailable Krystian, Kitty Primary Care Unavailable Karol, Vania Attending Unavailable Krystian, Kitty Referring Unavailable Krystian, Kitty Referring Unavailable Krystian, Kitty Primary Care Unavailable Huertas, Marina Attending Unavailable Krystian, Kitty Referring Unavailable Krystian, Kitty Primary Care Unavailable Friend, Juwan Attending Unavailable Krystian, Kitty Primary Care Unavailable Karol, Vania Referring Unavailable Karol, Vania Attending Unavailable Huertas, Marina Referring Unavailable Huertas, Marina Attending Unavailable Krystian, Kitty Primary Care Unavailable Krystian, Kitty Attending Unavailable Krystian, Kitty Primary Care Unavailable Krystian, Kitty Referring Unavailable Krystian, Kitty Primary Care Unavailable Friend, Juwan Referring Unavailable Friend, Juwan Attending Unavailable Krystian, Kitty Referring Unavailable Krystian, Kitty Attending Unavailable Krystian, Kitty Primary Care Unavailable Krystian, Kitty Referring Unavailable Krystian, Kitty Primary Care Unavailable Krystian, Kitty Attending Unavailable Krystian, Kitty Referring Unavailable Krystian, Kitty Primary Care Unavailable Krystian, Kitty Attending Unavailable Krystian, Kitty Primary Care Unavailable Assessment, Health Risk Referring Unavaila ble Assessment, Health Risk Attending Unavaila ble Krystian, Kitty Primary Care Unavailable Assessment, Health Risk Referring Unavaila ble Assessment, Health Risk Attending Unavaila ble Krystian, Kitty Primary Care Unavailable Krystian, Kitty Referring Unavailable Krystian, Kitty Attending Unavailable Allergies Allergy Classification Reported Allergen(s) Allergy Type Date of Onset Reaction(s) Facility (20 sources) Morphine; Translations: [MORPHINE] Drug Allergy 05-11-20 03 Anaphylaxis [facility] (15 sources) Phenazopyridine; Translations: [phenazopyridine HCl] Drug Allergy 11-28-19 Other [facility] Comment on above: n/v, felt like she w as "bouncing off shin" (14 sources) Sulfamethoxazole Drug Allergy 11-28-19 Other [facility] Comment on above: n/v, felt like she w as "bouncing off shin" (14 sources) Trimethoprim Drug Allergy 11-28-19 Other [facility] Comment on above: n/v; felt like she w as "bouncing off shin" (9 sources) Metoprolol Drug Allergy 04-29-20 confusion, severe fatigue [facility] (13 sources) Barbiturate; Translations: [BARBITURATES] Propensity to adverse reactions 05-11-20 [facility] (13 sources) Sulfonamides (Antibiotic); Translations: [SULFA (SULFONAMIDE ANTIBIOTICS)] Propensity to adverse reactions 05-11-20 [facility] (2 sources) Acetominophen 3 [Other] Propensity to adverse reactions 05-11-20 [facility] Work Phone: (1 source) OTHER; Translations: [OTHER] Propensity to adverse reactions (disorder) 05-11-20 [facility] (1 source) Metoprolol Drug Allergy 05-19-20 [facility] Repository (1 source) Morphine Drug Allergy 05-19-20 [facility] Repository (1 source) Sulfamethoxazole Drug Allergy 05-19-20 [facility] Repository (1 source) Trimethoprim Drug Allergy 05-19-20 [facility] Repository Medications Current Medications Medication Drug Class(es) Dates Sig (Normalized) Sig (Original) amoxicillin 875 mg / clavulanate 125 mg oral tablet (5 sources) Penicillin-class Antibacterial Start: 05-11-2025 Amoxicillin-Pot Clavulanate 875-125 mg tablet Active 1 {tbl} PO Q12H 28 14 0 May 11, 2025 4:29pm May 24, 2025 12:00am Complies with drug therapy Start: 03-09-2025 End: 03-19-2025 Amoxicillin-Pot Clavulanate 875-125 mg tablet Discontinued 1 {tbl} PO Q12H 20 10 0 March 09, 2025 12:00am March 18, 2025 12:00am March 19, 2025 12:08am bisoprolol fumarate 5 mg oral tablet (17 sources) beta-Adrenergic Yudy Start: 08-30-2024 take 1 tablet by mouth twice daily Bisoprolol Fumarate 5 mg tablet Active 5 mg PO TWICE A DAY August 30, 2024 1:00am Complies with drug therapy Start: 05-09-2024 take 0.5 tablet by m [...] daily. 15 tablet 2 04/06/2024 05/09/2024 Discontinued fluconazole 150 mg oral tablet (2 sources) Azole Antifungal Start: 03-24-2025 take 1 tablet by mouth once Fluconazole 150 mg tablet Active 150 mg PO ONCE 1 0 March 24, 2025 12:00am as a single dose Complies with drug therapy gabapentin 300 mg oral capsule (10 sources) [...] PO DAILY 30 August 30, 2024 6:27pm Complies with drug therapy naproxen 500 mg oral tablet (10 sources) [...] / oxyCODONE hydrochloride 5 mg oral tablet (14 sources) Opioid Agonist Start: 07-16-2013 End: 07-22-2013 [...] 8:41am colestipol hydrochloride 1000 mg oral tablet (14 sources) Bile Acid Sequestrant Start: 09-03-2021 End: 10-03-2021 Colestipol 1 gram tablet Discontinued 1 g PO TWICE A DAY 60 30 0 September 03, 2021 1:00am October 02, 2021 1:00am October 03, 2021 1:03am dicyclomine hydrochloride 10 mg oral capsule (14 sources) Anticholinergic Start: 05-28-2015 End: 05-28-2015 take 1 capsule by mouth three times daily as needed for pain Dicyclomine 10 MG capsule Discontinued 10 mg PO 3 TIMES DAILY NEEDED as needed for Abdominal Pain 20 May 28, 2015 3:40pm May 28, 2015 [...] 25 mg PO TWICE A DAY 180 3 February 05, 2022 11:21am November 07, 2022 [...] [Left lower quadrant pain] Episodic Anxiety disorders (14 sources) Mixed anxiety and depressive disorder; Translations: [Anxiety disorder, unspecified] 07-29-2015 Chronic Cardiac dysrhythmias (20 sources) Supraventricular tachycardia; Translations: [Supraventricular tachycardia] Onset: 4 Chronic Cardiac dysrhythmias (20 sources) Palpitations; Translations: [Palpitations] Onset: 4 Episodic Congestive heart failure; nonhypertensive (2 sources) Congestive heart failure; Translations: [Heart failure, unspecified] Onset: 4 03-14-2024 Chronic Diverticulosis and diverticulitis (5 sources) Diverticulitis; Translations: [Diverticulitis of intestine, part unspecified, without perforation or abscess without bleeding] Onset: 5 03-09-2025 Chronic Esophageal disorders (16 sources) Gastroesophageal reflux disease; Translations: [Gastro-esophageal reflux disease without esophagitis] Chronic Essential hypertension (9 sources) Essential hypertension; Translations: [Essential (primary) hypertension] 06-19-2023 Chronic Malaise and fatigue (12 sources) Fatigue; Translations: [Other fatigue] 01-22-2022 Episodic Mood disorders (12 sources) Depressive disorder; Translations: [Other specified depressive episodes] Onset: 0 06-11-2010 Chronic Nonspecific chest pain (20 sources) Chest pain; Translations: [Chest pain, unspecified] Onset: 4 Episodic Open wounds of extremities (14 sources) Laceration of finger without foreign body; Translations: [Laceration without foreign body of right index finger without damage to nail, initial encounter] 11-19-2021 Episodic Other gastrointestinal disorders (12 sources) Irritable bowel syndrome; Translations: [Irritable bowel syndrome without diarrhea] Onset: 0 06-11-2010 Chronic Other liver diseases (17 sources) Fatty (change of) liver, not elsewhere classified; Translations: [Nonalcoholic fatty liver disease] Onset: 5 12-15-2022 Chronic Other lower respiratory disease (20 sources) Dyspnea; Translations: [Shortness of breath] Onset: 4 01-22-2022 Episodic Other non-traumatic joint disorders (14 sources) Hip pain; Translations: [Pain in unspecified hip] 11-05-2021 Episodic Other nutritional; endocrine; and metabolic disorders (14 sources) Obese class I; Translations: [Obesity, unspecified] 07-29-2015 Chronic Residual codes; unclassified (12 sources) Insomnia; Translations: [Insomnia, unspecified] 02-05-2022 Episodic Residual codes; unclassified (2 sources) History of lumbar discectomy; Translations: [Other specified postprocedural states] 05-19-2025 Episodic Comment on above: X2 Spondylosis; intervertebral disc disorders; other back problems (3 sources) Degeneration of lumbar intervertebral disc; Translations: [Degenerative disc disease (DDD) of lumbar region with discogenic back pain and leg pa] Chronic Spondylosis; intervertebral disc disorders; other back problems (17 sources) Backache; Translations: [Dorsalgia, unspecified] Onset: 0 06-11-2010 Episodic Substance-related disorders (14 sources) Tobacco dependence syndrome; Translations: [Nicotine dependence, unspecified, uncomplicated] 07-29-2015 Chronic Thyroid disorders (1 source) Nontoxic multinodular goiter; Translations: [Nontoxic multinodular goiter] Onset: 5 Chronic Unclassified (1 source) Paroxysmal SVT (supraventricular tachycardia) (HCC); Translations: [Paroxysmal SVT (supraventricular tachycardia) (HCC)] Onset: 4 Unclassified (1 source) M48.062 - Spinal stenosis, lumbar region with neurogenic claudication,M51.362 - Other intervertebral disc degeneration, lumbar region with discogenic back pain and lower extremity pain Past or Other Problems Problem Classification Problem [...] conditions (not mental disorders or infectious disease) (15 sources) Patient encounter status; Translations: [Encounter for screening for malignant neoplasm of colon] Onset: 08-26-2024 11-19-2021 Episodic Unclassified (12 sources) ASA CLASS II Onset: 07-06-2003 Resolved: 06-11-2010 06-11-2010 Unclassified (12 sources) [facility] - EKG,LABS, AND OR PENDING Onset: 07-06-2003 Resolved: 06-11-2010 06-11-2010 Varicose veins of lower extremity (12 sources) Varicose veins of lower extremity; Translations: [Asymptomatic varicose veins of bilateral lower extremities] Onset: 10-05-2024 08-30-2024 Episodic Results Test Name Value Interpretation Reference Range Facility Abdomen/Pelvis WITH Contrast on 05-25-2025 Abdomen/Pelvis WITH Contrast [facility] [address] [place] [address] Abdomen/Pelvis WITH Contrast MR#: [id number] Acct: [id number] Name: RENETTA PLAZA Rep #: [id number] : 1965 F 59 From: Michael Downs MD PCP: LETICIA Pruett Status: REG CLI Study: Abdomen/Pelvis WITH Contrast Date of Exam: 05/11 Exam# [id number] Ordering Dr: Juwan Simms DO PROCEDURE: ABDOMEN/PELVIS WITH CONTRAST 05/25/2025 REASON FOR EXAM: DIVERTICULITIS TECHNIQUE: Procedure Code: [id number] Modality: CT Procedure: ABDOMEN/PELVIS WITH CONTRAST Coronal and Sagittal reconstruction series were provided. CONTRAST: Isovue 370 VOLUME: 95 mL One or more dose reduction techniques were used (e.g., Automated exposure control, adjustment of the mA and/or kV according to patient size, use of iterative reconstruction technique. RADIATION DOSE SUMMARY: CTDlvol: 48.07 mGy DLP: 1235.73 mGycm COMPARISON: CT abdomen and pelvis with contrast, 07/01/2021. Field FINDINGS: Lung bases: The lung bases are clear. There are no pleural effusions. Heart size is normal. There is no pericardial effusion. There is mild calcific vascular disease of the coronary arteries and visualized thoracic aorta. Liver: Normal size. No mass. Gallbladder: Surgically absent. Spleen: Normal size. There is a benign splenule. Pancreas: Normal size without evidence of mass surrounding inflammation or ductal dilation. Adrenals: Normal. Kidneys: There is a stable 2.0 cm in diameter exophytic cyst from the interpolar region of the left kidney. The kidneys are otherwise unremarkable. Bladder: Normal unenhanced appearance. Reproductive Organs: The uterus is surgically absent. The ovaries are not identified. There is no free fluid in the pelvis. There is no inguinal lymphadenopathy. Bowel: Colonic diverticulosis without diverticulitis. Appendix: Surgically absent. Lymph nodes: No suspicious lymph node enlargement. Vasculature: Mild diffuse atherosclerotic calcifications are noted. Peritoneum / Retroperitoneum: There are no abnormal intra or retroperitoneal masses or fluid collections. Status post left inguinal hernia repair. Bones: There is multilevel degenerative disc disease of the lumbar spine most severe at the L4-[address]/Abdomen/Pelvis WITH Contrast IMPRESSION: 1. There are scattered colonic diverticuli without evidence of acute inflammation. 2. Stable exophytic cyst from the left kidney. 3. Other findings as noted. Reading Location: [place] [address] CC: LETICIA Boland; Juwan Friend, Airplane Cover Maker: Signed Normal [facility] CBC, Employeeon 05-22-2025 Absolute Lymph 2.46 X10 3/uL Normal 0.83-4.51 [facility] Comment on above: Performed By: #### L 100.0200, L400.0100, L500.2900 #### [facility] Laboratory [address] [place], [address] Absolute Neut 2.9 X10 3/uL Normal 2.0-7.7 [facility] Comment on above: Performed By: #### L 100.0200, L400.0100, L500.2900 #### [facility] Laboratory [address] [place], [address] Basophils/100 WBC (Bld) 0.5 % Normal 0-1 [facility] Comment on above: Performed By: #### L 100.0200, L400.0100, L500.2900 #### [facility] Laboratory [address] [place], [address] Eosinophils/100 WBC (Bld) 1.7 % Normal 0-5 [facility] Comment on above: Performed By: #### L 100.0200, L400.0100, L500.2900 #### [facility] Laboratory [address] [place], [address] Erythrocyte distribution width (RBC) [Ratio] 12.7 % Normal 11.6-14.6 [facility] Comment on above: Performed By: #### L 100.0200, L400.0100, L500.2900 #### [facility] Laboratory [address] [place], [address] Hematocrit (Bld) [Volume fraction] 41.2 % Normal 37-47 [facility] Comment on above: Performed By: #### L 100.0200, L400.0100, L500.2900 #### [facility] Laboratory [address] [place], [address] Hemoglobin (Bld) [Mass/Vol] 13.3 g/dL Normal 12.0-15.0 [facility] Comment on above: Performed By: #### L 100.0200, L400.0100, L500.2900 #### [facility] Laboratory [address] [place], [address] Lymphocytes/100 WBC (Bld) 41.6 % High 19-41 [facility] Comment on above: Performed By: #### L 100.0200, L400.0100, L500.2900 #### [facility] Laboratory [address] [place], [address] MCH (RBC) [Entitic mass] 30.9 pg Normal 27.0-32.0 [facility] Comment on above: Performed By: #### L 100.0200, L400.0100, L500.2900 #### [facility] Laboratory [address] [place], [address] MCHC (RBC) [Mass/Vol] 32.3 g/dL Normal 32-36 [facility] Comment on above: Performed By: #### L 100.0200, L400.0100, L500.2900 #### [facility] Laboratory [address] [place], [address] MCV (RBC) [Entitic vol] 95.6 fL Normal 81-99 [facility] Comment on above: Performed By: #### L 100.0200, L400.0100, L500.2900 #### [facility] Laboratory [address] [place], [address] Monocytes/100 WBC (Bld) 7.4 % Normal 0-10 [facility] Comment on above: Performed By: #### L 100.0200, L400.0100, L500.2900 #### [facility] Laboratory [address] [place], [address] Neutrophils/100 WBC (Bld) 48.6 % Normal 47-70 [facility] Comment on above: Performed By: #### L 100.0200, L400.0100, L500.2900 #### [facility] Laboratory [address] [place], [address] NRBC # 0.00 10 3/uL Normal 0-5 [facility] Comment on above: Performed By: #### L 100.0200, L400.0100, L500.2900 #### [facility] Laboratory [address] [place], [address] Nucleated RBC (Bld) [#/Vol] 0 10*3/uL Normal 0-5 [facility] Comment on above: Performed By: #### L 100.0200, L400.0100, L500.2900 #### [facility] Laboratory [address] [place], [address] Platelet mean volume (Bld) [Entitic vol] 9.9 fL Normal 6.2-12.0 [facility] Comment on above: Performed By: #### L 100.0200, L400.0100, L500.2900 #### [facility] Laboratory [address] [place], [address] Platelets (Bld) [#/Vol] 295 10*3/uL Normal 150-450 [facility] Comment on above: Performed By: #### L 100.0200, L400.0100, L500.2900 #### [facility] Laboratory [address] [place], [address] RBC (Bld) [#/Vol] 4.31 10*6/uL Normal 4.2-5.4 [facility] Comment on above: Performed By: #### L 100.0200, L400.0100, L500.2900 #### [facility] Laboratory [address] [place], [address] RDW SD 45.2 fl High 35.1-43.9 [facility] Comment on above: Performed By: #### L 100.0200, L400.0100, L500.2900 #### [facility] Laboratory [address] [place], [address] WBC (Bld) [#/Vol] 5.9 10*3/uL Normal 4.4-11.0 [facility] Comment on above: Performed By: #### L 100.0200, L400.0100, L500.2900 #### [facility] Laboratory [address] [place], [address] Employee [employer] 5 LDH 184 U/L Normal 84-246 [facility] Comment on above: Performed By: #### L 100.0200, L400.0100, L500.2900 #### [facility] Laboratory [address] [place], [address] Phosphate [Mass/Vol] 3.5 mg/dL Normal 2.7-4.5 [facility] Comment on above: Performed By: #### L 100.0200, L400.0100, L500.2900 #### [facility] Laboratory [address] [place], [address] URIC 7.6 mg/dL High 2.6-6.0 [facility] Comment on above: Result Comment: The drugs N-Acetylcysteine and Metamizole may falsely depress this assay. Performed By: #### L 100.0200, L400.0100, L500.2900 #### [facility] Laboratory [address] [place], [address] Urinalysis, Employeeon 05-22 BILIRUBIN URINE Negative Normal Negative [facility] Comment on above: Order Comment: Urine , Random Performed By: #### L 100.0200, L400.0100, L500.2900 #### [facility] Laboratory [address] [place], [address] Clarity (U) Clear Normal Clear [facility] Comment on above: Order Comment: Urine , Random Performed By: #### L 100.0200, L400.0100, L500.2900 #### [facility] Laboratory [address] [place], [address] Color (U) Yellow Normal Yellow [facility] Comment on above: Order Comment: Urine , Random Performed By: #### L 100.0200, L400.0100, L500.2900 #### [facility] Laboratory [address] [place], [address] GLUCOSE, UR Normal Normal Normal [facility] Comment on above: Order Comment: Urine , Random Performed By: #### L 100.0200, L400.0100, L500.2900 #### [facility] Laboratory [address] [place], [address] KETONE UR Negative Normal Negative [facility] Comment on above: Order Comment: Urine , Random Performed By: #### L 100.0200, L400.0100, L500.2900 #### [facility] Laboratory [address] [place], [address] LEUK ESTERASE 25 /ul Abnormal Negative [facility] Comment on above: Order Comment: Urine , Random Performed By: #### L 100.0200, L400.0100, L500.2900 #### [facility] Laboratory [address] [place], [address] Nitrite Ql (U) Negative Normal Negative [facility] Comment on above: Order Comment: Urine , Random Performed By: #### L 100.0200, L400.0100, L500.2900 #### [facility] Laboratory [address] [place], [address] OCCULT BLOOD-UR Negative Normal Negative [facility] Comment on above: Order Comment: Urine , Random Performed By: #### L 100.0200, L400.0100, L500.2900 #### [facility] [address] [place], [address] pH UR 6.0 Normal 5.0 - 8.0 [facility] Comment on above: Order Comment: Urine , Random Performed By: #### L 100.0200, L400.0100, L500.2900 #### [facility] Laboratory [address] [place], [address] PROT DIPSTX Negative Normal Negative [facility] Comment on above: Order Comment: Urine , Random Performed By: #### L 100.0200, L400.0100, L500.2900 #### [facility] Laboratory [address] [place], [address] SP.GR. DIPSTX 1.020 Normal 1.002-1.030 [facility] Comment on above: Order Comment: Urine , Random Performed By: #### L 100.0200, L400.0100, L500.2900 #### [facility] Laboratory [address] [place], [address] UROBILI Normal Normal Normal [facility] Comment on above: Order Comment: Urine , Random Performed By: #### L 100.0200, L400.0100, L500.2900 #### [facility] Laboratory [address] [place], [address] Orthopedic Visit Reporton Orthopedic Visit Report [facility] Orthopedics [facility] [address] [place] [address] OFFICE VISIT Date of Service: 05/19/25 MR#: [id number] Acct: [id number] Name: RENETTA PLAZA Rep #: [id number] : 1965 Provider: SUSAN Joyce Age/Sex: 59/F Location: [facility] Status: Signed Intake Vital Signs 03/01/24 00:14 05/19/25 11:04 Height 5 ft 7 in 5 ft 7 in Weight: 200 lb BMI 31.3 Intake Visit Reasons: LUMBAR SPINE Chief Complaint: Lumbar spine pain Accompanied by: Is patient in pain?: Yes Pain scale (1-10): 6 Allergies morphine Allergy (Verified 05/19/25 11:07) Anaphylaxis phenazopyridine HCl (From Pyridium) Allergy (Verified 05/19/25 11:07) Other sulfamethoxazole (From Septra) Allergy (Verified 05/19/25 11:07) Other trimethoprim (From Septra) Allergy (Verified 05/19/25 11:07) Other metoprolol Adverse Reaction (Severe, Verified 05/19/25 11:07) confusion, severe fatigue Medications ???Medication ???Instructions ???Recorded ???Confirmed ???Type bisoprolol fumarate 5 mg tablet 5 mg PO BID 08/30/24 05/19/25 Hist ory lisinopril 10 mg tablet 10 mg PO DAILY #30 tabs 08/30/24 1 Rx fluconazole 150 mg tablet 150 mg PO ONCE #1 TAB 03/24/2511/08 Rx amoxicillin 875 mg-potassium 1 tab PO Q12H 14 days #28 tabs 05/19/25 Rx clavulanate 125 mg tablet Have you fallen in the past year?: Yes PFSH Medical History (Updated 05/19/25 @ 12:52 by SUSAN Joyce) Chest pain in adult SVT (supraventricular tachycardia) [...] body w/o damage to nail Surgical History (Updated 05/19/25 @ 12:54 by SUSAN Joyce) History of ankle surgery History of back [...] Type: coffee Number of servings: 2 HPI LUMBAR SPINE Details: This documentation accurately reflects the service provided and the decisions made by me, SUSAN Joyce 05/19/25 1104. Part of today???s visit was documented by Alan Verdin MA, acting as scribe. RENETTA PLAZA is a 59 year old F here today for lumbar spine. Patient states that her pain is aq 6 today. She states that her pain is in her lower back. The pain in her lower back is like a stabbing pain. Her pain has been slowly progressing over the last several years however it has significantly worsened over the last 2 months. She states that she feels like she is walking on a knife. Patient states that there is pain going down the legs. The right leg is worse then the left leg. She gets pain that extends down the side of the right leg to the foot and toes. She also gets lateral sided left leg pain that goes to the ankle. Her lower back pain is equal on both sides. Says that her pain increases when going from a sitting to a standing position. Any type of movement increases the pain. Leaning on a shopping cart helps to make the symptoms more tolerable. She states that there is numbness and tingling in her right leg, and toes. Patient states that this has been going on for about 2 months. She states that she doesn't remember doing anything to injure her back. Patient states that she has had back problems ever since her back surgery. Patient states that she did have back surgery in 2004, and 2007. Dr. Salazar from [facility] did her surgery. Said that she had an L4-5 and L5-S1 discectomy. She says that the surgeries in 2004 in 2007 where the same surgeries. She denies any other lumbar spine surgeries. She states that she hasn't injured her anything. Patient states that when she is walking the pain gets worse. When she is working at night the pain gets worse. Patient states that she has had injections in her lower back. The injections that she had gotten didn't work for her. Patient states that she got her [facility] [place] [facility] (more content not included)... Normal [facility] L/S Spine Min 4 Viewson 04-18 L/S Spine Min 4 Views [facility] Imaging Services [address] [place], [place] [address] L/S Spine Min 4 Views MR#: [id number] Acct: [id number] Name: RENETTA PLAZA ANN Rep #: [id number] : 1965 F 59 From: Orlin Gilman MD PCP: Kitty Boland NP-Paul Status: REG CLI Study: L/S Spine Min 4 Views Date of Exam: 05/10/25 Exam# [id number] Ordering Dr: Vania Roberson EXAM: XR Lumbosacral Spine, 4 or 5 Views CLINICAL INDICATION: BACK PAIN TECHNIQUE: Frontal, lateral and bilateral oblique views of the lumbar spine. COMPARISON: XR Lumbosacral Spine dated 11/17/2023 FINDINGS: VERTEBRAE: Degenerative facet arthropathy throughout the lumbar spine, most prominent in the lower lumbar spine. Normal alignment. No acute fracture or significant dynamic instability. SACRUM/COCCYX: Unremarkable as visualized. No acute fracture. DISC SPACES: Degenerative disc disease throughout the lumbar spine. SOFT TISSUES: Unremarkable. RAD/L/S Spine Min 4 Views IMPRESSION: 1. No acute fracture or significant dynamic instability. 2. If symptoms persist, further evaluation with MRI is recommended. 3. Degenerative changes lumbar spine as described. Reading Location: [facility] CC: LETICIA Boland; SUSAN Joyce Airplane Cover Maker: Signed Normal [facility] Gastroenterology Visit Repor ton 03-09-2025 Gastroenterology Visit Report [facility] Gastroenterology [address] [place] [address] OFFICE VISIT Date of Service: 03/09/25 MR#: [id number] Acct: [id number] Name: JESSE PLAZAH ANN Rep #: [id number] : 1965 Provider: Juwan Simms DO Age/Sex: 59/F Location: [facility] Status: Signed Intake Vital Signs 03/01/24 00:14 [...] started on colestipol following the procedure.??? OV 2 noting diarrhea with abdominal pain/cramping for which she has been using Lomotil which is effective and intermittent constipation. No active issues at OV.???Monitor and levsin.??? OV 11.05.21 continues with postprandial diarrhea but is less [...] recently started a supplement she found on facebook called provitalVinny, reports that since starting she has felt [...] stools, Black,tarry (more content not included)... Normal [facility] MR/BMS.BVSon 11-15-2024 MR/BMS.BVS [facility] Vascular Surgery [address] [place] [address] OFFICE VISIT Date of Service: 11/15/24 MR#: [id number] Acct: [id number] Name: RENETTA PLAZA ANN Rep #: [id number] : 1965 Provider: SUSAN Alvarado Age/Sex: 59/F Location: [facility] Status: Signed Intake Vital Signs 03/01/24 00:14 [...] No dizziness (more content not included)... Normal [facility] Thyroidon 11-14-2024 Thyroid [facility] Imaging Services [address] [place] [address] Thyroid MR#: [id number] Acct: [id number] Name: RENETTA PLAZA ANN Rep #: [id number] : 1965 F 59 From: Nimo Morrell nd, MD PCP: LETICIA Pruett Status: REG CLI Study: Thyroid Date of Exam: 11/14/24 Exam# [id number] Ordering Dr: Kitty Boland PROCEDURE: THYROID 11/14/2024 [...] follow-up by ACR TI-RADS criteria. Reading Location: [facility] CC: BUSINESS ASST-C Kitty Boland Airplane Cover Maker: Signed Normal [facility] Soft Tissue Neck WITH Contra ston 11-04-2024 Soft Tissue Neck WITH Contrast [facility] Imaging Services [address] [place] [address] Soft Tissue Neck WITH Contrast MR#: [id number] Acct: [id number] Name: RENETTA PLAZA ANN Rep #: [id number] : 1965 F 59 From: Car Cheatham i, DO PCP: LETICIA Pruett Status: REG CLI Study: Soft Tissue Neck WITH Contrast Date of Exam: 0 11/04/24 Exam# [id number] Ordering Dr: Kitty Boland PROCEDURE: CT of [...] ultrasound. Reading Location: [facility] CC: LETICIA Boland Airplane Cover Maker: Signed Normal [facility] Head/Neck Soft Tissueon 10-15 Head/Neck Soft Tissue [facility] Imaging Services [address] [place] [address] Head/Neck Soft Tissue MR#: [id number] Acct: [id number] Name: RENETTA PLAZA Rep #: [id number] : 1965 F 59 From: Darren Bunn PCP: LETICIA Pruett Status: REG CLI Study: Head/Neck Soft Tissue Date of Exam: 10/24/24 Exam# [id number] Ordering Dr: Kitty Boland PROCEDURE: HEAD/NECK SOFT [...] with contrast enhanced neck CT. Reading Location: [facility] CC: BUSINESS ASST-C Kitty Boland Airplane Cover Maker: Signed Normal [facility] Venous Duplex US - Maurizio Extre [facility] 09-16-2024 Venous Duplex US - Maurizio Extrem [facility] Cardiovascular Services [address] [place] [address] Venous Duplex US - Maurizio [facility] 09/16/24 1418 MR#: [id number] Acct: [id number] Name: RENETTA PLAZA Rep #: [id number] : 1965 58 From: Jhon Rogers MD [...] Physician: Kitty Boland Performed By: Kitty De, RDMIROSLAVA, RVT 09/19/24 1143 Date Jhon Rogers MD CC: BUSINESS ASST-C Kitty Boland; SUSAN Alvarado Date Dictated: 09/16/24 1418 Date Transcribed: 09/19/24 1143 Airplane Cover Maker: Signed Normal [facility] Gastroenterology Visit Repor ton 09-05-2024 Gastroenterology Visit Report [facility] Gastroenterology [address] [place] [address] OFFICE VISIT Date of Service: 09/05/24 MR#: [id number] Acct: [id number] Name: RENETTA PLAZA ANN Rep #: [id number] : 1965 Provider: Juwan Simms DO Age/Sex: 58/F [facility] Status: Signed Intake Vital Signs 06/16/23 09:44 [...] and intermittent constipation. No active issues at OV.???Monitor and levsin.??? OV 11.05.21 continues with postprandial diarrhea but is less severe, intermittent LLQ pain can wake her from sleep. Notes hernia mesh repair in LLQ which she attributes for the pain.?Pelvic/femu r Xray 11.10.22???postsurgical changes of mid pelvis, LLQ and right mid abdomen; arthrosis of both hips; small knee joint effusion.??? OV 5.. continues to have consistent LLQ discomfort without changes of severity or character change. Loose stools have spontaneously resolved; except for food triggers. ??? OV 7.09.09 pt reports that she is feeling well overall, denies GI symptoms of concern at this time. Reports daily bm; denies blood in the stool. US and elastography 08.31.24 hepatic measurement 15cm with fatty infiltration, stiffness measures 6.2kPa compatible with F2-F3 Metavir score. OV 09.05.24 pt reports that she recently started a supplement she found on [employer] called BirdDog, reports that since starting she has felt [...] restless legs (more content not included)... Normal [facility] Christa 09-02-2024 MELLY Telephone ([facility]) RENETTA PLAZA ([id number]) 1965 F Date Time Provider Department 09/02/24 TL WALLER MAI During your visit today, we recorded the [...] Resolved ASA CLASS II [1001] 07/06/2003 06/11/2010 [facility] - EKG,LABS, AND OR PENDING 07/06/2003 [...] Status:Closed by LOYD WARNER on 09/02/24 Normal [facility] ABD Limited w/ Elastographyo n 08-31-2024 ABD Limited w/ Elastography [facility] Imaging Services [address] [place] [address] ABD Limited w/ Elastography MR#: [id number] Acct: [id number] Name: RENETTA PLAZA Rep #: [id number] : 1965 F 58 From: Asaf mcclelland MD PCP: LETICIA Pruett Status: REG CLI Study: ABD Limited w/ Elastography Date of Exam: 08/17 01/08 Exam# [id number] Ordering Dr: [place] [id number] STUDY: ABDOMINAL ULTRASOUND - RIGHT UPPER QUADRANT; ELASTOGRAPHY REASON FOR VISIT: Female, 58 years old. NAFLD TECHNIQUE: Ultrasound evaluation of the right upper quadrant was performed with real-time and static heart-scale imaging. Point quantification shear wave elastography was performed ([employer]). TECHNICAL QUALITY: Adequate. COMPARISON: Comparison is made [...] Signed: Asaf Madden MD at 12:20 EST Reading Location ID and State: [facility] [place] , Service [place] , CC: LETICIA Boland; Juwan Friend, Airplane Cover Maker: Signed Normal [facility] MR/BMS.BVSon 08-30-2024 MR/BMS.BVS [facility] [address] [place] [address] OFFICE VISIT Date of Service: 08/30/24 MR#: [id number] Acct: [id number] Name: RENETTA PLAZA ANN Rep #: [id number] : 1965 Provider: SUSAN Alvarado Age/Sex: 58/F Location: [facility] Status: Signed Intake Vital Signs 03/01/24 00:14 [...] tablet 10 mg PO DAILY #30 tabs 11/03/23 07/16/24 Rx bisoprolol fumarate 5 mg tablet 5 [...] No emphysema (more content not included)... Normal [facility] Foot min 3 Viewson 5 Foot min 3 Views [facility] Imaging Services [address] [place], [place] [address] Foot min 3 Views MR#: [id number] Acct: [id number] Name: RENETTA PLAZA Rep #: [id number] : 1965 F 58 From: Rene Garcia MD PCP: LETICIA Pruett Status: REG CLI Study: Foot min 3 Views Date of Exam: 08/24/24 Exam# [id number] Ordering Dr: Kitty BolandC [id number] STUDY: X-RAY - LEFT FOOT CLINICAL: Female, [...] Signed: Rene Garcia MD at 16:02 EST Reading Location ID and State: [facility] , [facility] , CC: LETICIA Boland Airplane Cover Maker: Signed Normal [facility] SCRN MAMM (CAD)W/ARELY BILATo n 07-26-2024 SCRN MAMM (CAD)W/ARELY BILAT [facility] Imaging Services [address] [place], [place] [address] SCRN MAMM (CAD)W/ARELY BILAT MR#: [id number] Acct: [id number] Name: RENETTA PLAZA ANN Rep #: [id number] : 1965 F 58 From: Asaf mcclelland MD PCP: LETICIA Pruett Status: [facility] Study: SCRN MAMM (CAD)W/ARELY BILAT Date of Exam: 07/17 Exam# [id number] Ordering Dr: Kitty Boland [id number] MAMMOGRAPHY - BILATERAL SCREENING REASON FOR EXAM: [...] delay biopsy of a clinically suspicious abnormality. [id number] Electronically Signed: Asaf Madden MD at 15:12 EST Reading Location ID and State: [facility] , Service [facility] , CC: LETICIA Boland Airplane Cover Maker: Signed Normal [facility] CBC, [employer] 06-14-2024 Absolute Lymph 2.49 X10 3/uL Normal 0.83-4.51 [facility] Comment on above: Performed By: #### L 100.0200, L400.0100, L500.2900 #### [facility] Laboratory [address] [place], [address] Absolute Neut 3.3 X10 3/uL Normal 2.0-7.7 [facility] Comment on above: Performed By: #### L 100.0200, L400.0100, L500.2900 #### [facility] Laboratory [address] [place], [address] Basophils/100 WBC (Bld) 0.5 % Normal 0-1 [facility] Comment on above: Performed By: #### L 100.0200, L400.0100, L500.2900 #### [facility] Laboratory [address] [place], [address] Eosinophils/100 WBC (Bld) 0.9 % Normal 0-5 [facility] Comment on above: Performed By: #### L 100.0200, L400.0100, L500.2900 #### [facility] Laboratory [address] [place], [address] Erythrocyte distribution width (RBC) [Ratio] 13.3 % Normal 11.6-14.6 [facility] Comment on above: Performed By: #### L 100.0200, L400.0100, L500.2900 #### [facility] Laboratory [address] [place], [address] Hematocrit (Bld) [Volume fraction] 39.9 % Normal 37-47 [facility] Comment on above: Performed By: #### L 100.0200, L400.0100, L500.2900 #### [facility] Laboratory [address] [place], [address] Hemoglobin (Bld) [Mass/Vol] 13.0 g/dL Normal 12.0-15.0 [facility] Comment on above: Performed By: #### L 100.0200, L400.0100, L500.2900 #### [facility] Laboratory [address] [place], [address] Lymphocytes/100 WBC (Bld) 39.4 % Normal 19-41 [facility] Comment on above: Performed By: #### L 100.0200, L400.0100, L500.2900 #### [facility] Laboratory [address] [place], [address] MCH (RBC) [Entitic mass] 30.9 pg Normal 27.0-32.0 [facility] Comment on above: Performed By: #### L 100.0200, L400.0100, L500.2900 #### [facility] Laboratory [address] [place], [address] MCHC (RBC) [Mass/Vol] 32.6 g/dL Normal 32-36 [facility] Comment on above: Performed By: #### L 100.0200, L400.0100, L500.2900 #### [facility] Laboratory [address] [place], [address] MCV (RBC) [Entitic vol] 94.8 fL Normal 81-99 [facility] Comment on above: Performed By: #### L 100.0200, L400.0100, L500.2900 #### [facility] Laboratory [address] [place], [address] Monocytes/100 WBC (Bld) 7.3 % Normal 0-10 [facility] Comment on above: Performed By: #### L 100.0200, L400.0100, L500.2900 #### [facility] Laboratory [address] [place], [address] Neutrophils/100 WBC (Bld) 51.6 % Normal 47-70 [facility] Comment on above: Performed By: #### L 100.0200, L400.0100, L500.2900 #### [facility] Laboratory [address] [place], [address] NRBC # 0.00 10 3/uL Normal 0-5 [facility] Comment on above: Performed By: #### L 100.0200, L400.0100, L500.2900 #### [facility] Laboratory [address] [place], [address] Nucleated RBC (Bld) [#/Vol] 0 10*3/uL Normal 0-5 [facility] Comment on above: Performed By: #### L 100.0200, L400.0100, L500.2900 #### [facility] Laboratory [address] [place], [address] Platelet mean volume (Bld) [Entitic vol] 9.5 fL Normal 6.2-12.0 [facility] Comment on above: Performed By: #### L 100.0200, L400.0100, L500.2900 #### [facility] Laboratory [address] [place], [address] Platelets (Bld) [#/Vol] 262 10*3/uL Normal 150-450 [facility] Comment on above: Performed By: #### L 100.0200, L400.0100, L500.2900 #### [facility] Laboratory [address] [place], [address] RBC (Bld) [#/Vol] 4.21 10*6/uL Normal 4.2-5.4 [facility] Comment on above: Performed By: #### L 100.0200, L400.0100, L500.2900 #### [facility] Laboratory [address] [place], [address] RDW SD 46.3 fl High 35.1-43.9 [facility] Comment on above: Performed By: #### L 100.0200, L400.0100, L500.2900 #### [facility] Laboratory [address] [place], [address] WBC (Bld) [#/Vol] 6.3 10*3/uL Normal 4.4-11.0 [facility] Comment on above: Performed By: #### L 100.0200, L400.0100, L500.2900 #### [facility] Laboratory [address] [place], [address] [employer] 4 Albumin [Mass/Vol] 3.4 g/dL Normal 3.2-5.0 [facility] Comment on above: Performed By: #### L 100.0200, L400.0100, L500.2900 ####[facility] [address] [place], [address] Albumin/Globulin [Mass ratio] 1.1 {ratio} Normal 0.9-2.4 [facility] Comment on above: Performed By: #### L 100.0200, L400.0100, L500.2900 ####[facility] [address] [place], [address] ALK P 68 U/L Normal 45-117 [facility] Comment on above: Performed By: #### L 100.0200, L400.0100, L500.2900 ####[facility] [address] [place], [address] ALT [Catalytic activity/Vol] 24 U/L Normal 13-56 [facility] Comment on above: Performed By: #### L 100.0200, L400.0100, L500.2900 ####[facility] [address] [place], [address] AST [Catalytic activity/Vol] 12 U/L Low 15-37 [facility] Comment on above: Performed By: #### L 100.0200, L400.0100, L500.2900 ####[facility] [address] [place], [address] Bilirubin [Mass/Vol] 0.50 mg/dL Normal 0.20-1.00 [facility] Comment on above: Result Comment: For patients on eltrombopag therapy, use of Dimension [place] TBIL is not recommended. Performed By: #### L 100.0200, L400.0100, L500.2900 ####[facility] [address] [place], [address] Bilirubin.direct [Mass/Vol] 0.15 mg/dL Normal 0.00-0.30 [facility] Comment on above: Performed By: #### L 100.0200, L400.0100, L500.2900 ####[facility] [address] [place], [address] BUN/CRE 24.3 RATIO High 10-20 [facility] Comment on above: Performed By: #### L 100.0200, L400.0100, L500.2900 ####[facility] [address] [place], [address] CA,Total 9.0 mg/dL Normal 8.5-10.1 [facility] Comment on above: Performed By: #### L 100.0200, L400.0100, L500.2900 ####[facility] [address] [place], [address] Chloride [Moles/Vol] 108 mmol/L High 98-107 [facility] Comment on above: Performed By: #### L 100.0200, L400.0100, L500.2900 ####[facility] [address] [place], [address] CHOL:HDL 3.20 Normal [facility] [facility] Comment on above: Performed By: #### L 100.0200, L400.0100, L500.2900 ####[facility] [address] [place], [address] Cholesterol [Mass/Vol] 207 mg/dL High 200 [facility] Comment on above: Result Comment: <200 mg/dL Desirable 200-240 mg/dL Borderline >240 mg/dL High Risk Performed By: #### L 100.0200, L400.0100, L500.2900 ####[facility] [address] [place], [address] Cholesterol in HDL [Mass/Vol] 64 mg/dL Normal [facility] Comment on above: Result Comment: The drugs N-Acetylcysteine and Metamizole may falsely depress this assay. Reference Range HDL <40 mg/dL Low HDL Cholesterol HDL >or= 60 mg/dL High HDL Cholesterol Performed By: #### L 100.0200, L400.0100, L500.2900 ####[facility] [address] [place], [address] Cholesterol in LDL [Mass/Vol] 110 mg/dL Normal 0-130 [facility] Comment on above: Performed By: #### L 100.0200, L400.0100, L500.2900 ####[facility] [address] [place], [address] Cholesterol in VLDL [Mass/Vol] 33 mg/dL Normal 5-40 [facility] Comment on above: Performed By: #### L 100.0200, L400.0100, L500.2900 ####[facility] [address] [place], [address] CO2 [Moles/Vol] 28.0 mmol/L Normal 21.0-32.0 [facility] Comment on above: Performed By: #### L 100.0200, L400.0100, L500.2900 ####[facility] [address] [place], [address] Creatinine [Mass/Vol] 0.74 mg/dL Normal 0.55-1.02 [facility] Comment on above: Result Comment: The validity of the calculated GFR GFRAA in patients over 70 years has not been determined. Clinical correlation is essential. Performed By: #### L 100.0200, L400.0100, L500.2900 ####[facility] [address] [place], [address] EST GFR - AA 102 mL/min Normal >60 [facility] Comment on above: Result Comment: Afri can [place] GFR Calc Performed By: #### L 100.0200, L400.0100, L500.2900 ####[facility] [facility] [address] [place], [address] GAP 5 Normal 5-15 [facility] Comment on above: Performed By: #### L 100.0200, L400.0100, L500.2900 ####[facility] [address] [place], [address] GFR/1.73 sq M.predicted among non-blacks MDRD (S/P/Bld) [Vol rate/Area] 85 mL/min/{1.73_m2} Normal >60 [facility] Comment on above: Result Comment: Non- GFR Calc Performed By: #### L 100.0200, L400.0100, L500.2900 ####[facility] [address] [place], [address] Globulin (S) [Mass/Vol] 3.2 g/dL Normal 2.2-4.2 [facility] Comment on above: Performed By: #### L 100.0200, L400.0100, L500.2900 ####[facility] [address] [place], [address] Glucose [Mass/Vol] 94 mg/dL Normal 74-106 [facility] Comment on above: Performed By: #### L 100.0200, L400.0100, L500.2900 ####[facility] [address] [place], [address] LDH 176 U/L Normal 84-246 [facility] Comment on above: Performed By: #### L 100.0200, L400.0100, L500.2900 ####[facility] [address] [place], [address] Phosphate [Mass/Vol] 3.3 mg/dL Normal 2.5-4.9 [facility] Comment on above: Performed By: #### L 100.0200, L400.0100, L500.2900 ####[facility] [address] [place], [address] Potassium [Moles/Vol] 4.0 mmol/L Normal 3.5-5.1 [facility] Comment on above: Performed By: #### L 100.0200, L400.0100, L500.2900 ####[facility] [address] [place], [address] Sodium [Moles/Vol] 141 mmol/L Normal 136-145 [facility] Comment on above: Performed By: #### L 100.0200, L400.0100, L500.2900 ####[facility] [address] [place], [address] T PROT 6.6 g/dL Normal 6.4-8.2 [facility] Comment on above: Performed By: #### L 100.0200, L400.0100, L500.2900 ####[facility] [address] [place], [address] Triglyceride [Mass/Vol] 167 mg/dL Normal [facility] Comment on above: Result Comment: The drugs N-Acetylcysteine and Metamizole may falsely depress this assay. Serum Triglycerides Reference Interval Normal <150 mg/dL Borderline high 150 - 199 mg/dL High 200 - 499 mg/dL Very High > or = 500 mg/dL Performed By: #### L 100.0200, L400.0100, L500.2900 ####[facility] [address] [place], [address] Urea nitrogen [Mass/Vol] 18 mg/dL Normal 7-18 [facility] Comment on above: Performed By: #### L 100.0200, L400.0100, L500.2900 ####[facility] [address] [place], [address] URIC 6.3 mg/dL High 2.6-6.0 [facility] Comment on above: Result Comment: The drugs N-Acetylcysteine and Metamizole may falsely depress this assay. Performed By: #### L 100.0200, L400.0100, L500.2900 ####[facility] [address] [place], [address] Urinalysis, Employeeon 06-14 Clarity (U) Sl Cldy Normal Clear [facility] Comment on above: Order Comment: CLEAN CATCH Performed By: #### L 100.0200, L400.0100, L500.2900 ####[facility] [address] [place], [address] Color (U) Yellow Normal Yellow [facility] Comment on above: Order Comment: CLEAN CATCH Performed By: #### L 100.0200, L400.0100, L500.2900 ####[facility] [address] [place], [address] BILIRUBIN URINE Negative Normal Negative [facility] Comment on above: Order Comment: CLEAN CATCH Performed By: #### L 100.0200, L400.0100, L500.2900 ####[facility] [address] [place], [address] GLUCOSE, UR Normal Normal Normal [facility] Comment on above: Order Comment: CLEAN CATCH Performed By: #### L 100.0200, L400.0100, L500.2900 ####[facility] [address] [place], [address] KETONE UR Negative Normal Negative [facility] Comment on above: Order Comment: CLEAN CATCH Performed By: #### L 100.0200, L400.0100, L500.2900 ####[facility] [address] [place], [address] LEUK ESTERASE 100 /ul Abnormal Negative [facility] Comment on above: Order Comment: CLEAN CATCH Performed By: #### L 100.0200, L400.0100, L500.2900 ####[facility] [address] [place], [address] Nitrite Ql (U) Negative Normal Negative [facility] Comment on above: Order Comment: CLEAN CATCH Performed By: #### L 100.0200, L400.0100, L500.2900 ####[facility] [address] [place], [address] OCCULT BLOOD-UR 10 /ul Abnormal Negative [facility] Comment on above: Order Comment: CLEAN CATCH Performed By: #### L 100.0200, L400.0100, L500.2900 ####[facility] [address] [place], [address] pH UR 5.0 Normal 5.0 - 8.0 [facility] Comment on above: Order Comment: CLEAN CATCH Performed By: #### L 100.0200, L400.0100, L500.2900 ####[facility] [address] [place], [address] PROT DIPSTX 15 mg/dl Abnormal Negative [facility] Comment on above: Order Comment: CLEAN CATCH Performed By: #### L 100.0200, L400.0100, L500.2900 ####[facility] [address] [place], [address] SP.GR. DIPSTX 1.025 Normal 1.002-1.030 [facility] Comment on above: Order Comment: CLEAN CATCH Performed By: #### L 100.0200, L400.0100, L500.2900 ####[facility] [address] [place], [address] UROBILI Normal Normal Normal [facility] Comment on above: Order Comment: CLEAN CATCH Performed By: #### L 100.0200, L400.0100, L500.2900 ####[facility] [address] [place], [address] [facility] 05-10-2024 CNPN Telephone (CARDMN) RENETTA PLAZA ([id number]) 1965 F Date Time Provider Department 05/10/24 JOHAN CROFT CARDMN During your visit today, we recorded the following information about you: Loyd Leal 05/10/2024 10:07 AM Signed Documentation scanned into EP outside database Scanned EKG into [employer] Allergies As of Date: 05/10/2024 Noted Allergy Reaction BARBITURATES 05/11/2003 MORPHINE 05/11/2003 SULFA (SULFONAMIDE ANTIBIOTICS) 05/11/2003 Date Reviewed: 05/09/2024 Reviewed by: Sharon Ha, RN - Fully Assessed Reason for Visit: [...] Resolved ASA CLASS II [1001] 07/06/2003 06/11/2010 [facility] - EKG,LABS, AND OR PENDING 07/06/2003 [...] Encounter Status:Closed by LOYD LEAL on 05/10/24 [facility] CNOVon 05-09-2024 CNOV Office Visit (CARDMN ) RENETTA PLAZA ([id number]) 1965 F Date Time Provider Department 05/09/24 2:00 PM JOHAN CROFT CARDMN During your visit today, we recorded the following information about you: Pulse Blood pressure Weight Height 68/minute 110/66 91.2 kg 1.702 m Johan Croft MD 05/09/2024 6:02 PM [facility] Shushan Mateo Riggins Department of Cardiovascular Medicine SECTION OF CARDIAC PACING and ELECTROPHYSIOLOGY OUTPATIENT VISIT DATE May 09, 2024 OUTPATIENT VISIT TYPE CONSULTATION PRIMARY CARE PHYSICIAN: Dread Cedillo [address] [place] [address] REFERRING PHYSICIAN Tl Kc [address] [facility] Desk J3-4 [facility] [address] CHIEF COMPLAINT: SVT HISTORY OF PRESENT ILLNESS: [...] PHYSICAL EXAMINATIO (more content not included)... Normal [facility] ECG COMPLETEon 05-09-2024 ECG COMPLETE Ventricular Rate : 6 8 BPM Atrial Rate : 68 BPM P-R Interval : 130 ms QRS Duration : 80 ms Q-T Interval : 394 ms QTC Calculation(Bazett) : 418 ms Calculated P [place] : -23 degrees Calculated R [place] : -43 degrees Calculated T [place] : 16 degrees NORMAL SINUS RHYTHM LEFT AXIS DEVIATION LOW VOLTAGE INFERIOR MYOCARDIAL INFARCTION , AGE UNDETERMINED ANTERIOR MYOCARDIAL INFARCTION , AGE UNDETERMINED ABNORMAL ECG Confirmed by MD TEAGAN, PhD, МАРИНА ([id number]) on 05/30/2024 5:02:13 PM NAME : RENETTA PLAZA PID : [id number] : 1965 Gender : Female Race : ORD : [id number] Procedure Date : May 09 2024 11:25:37 Edit Date : May 30 2024 17:02:14 Diagnosis: NORMAL SINUS RHYTHM LEFT AXIS DEVIATION LOW VOLTAGE INFERIOR MYOCARDIAL INFARCTION , AGE UNDETERMINED ANTERIOR MYOCARDIAL INFARCTION , AGE UNDETERMINED ABNORMAL ECG Confirmed by MD TEAGAN, PhD, МАРИНА ([id number]) on 05/30/2024 5:02:13 PM Test Reason : Location : 314 : J14 j1-4 Overread By : MD TEAGAN, PhD,МАРИНА Edited By : MD TEAGAN, PhD,МАРИНА Referred By : JOHAN CROFT Acquired by : AMBROSIO RIOS [facility] STRESS ECHO TREADMILLon 09-2 STRESS ECHO TREADMILL Stress Supervisor Blood Report: Stress Echo [facility] J1-5 Date of service: 05/09/2024 10:11:45 AM FRAMING CARPENTER Supervising physician: Quinn Flores MD PATIENT: Name: MRS. RENETTA PLAZA Age: 58 years Gender: F The supervising physician was in the department and immediately available. Final ---- Echocardiography Report: Stress Echo [facility] J1- Date of service: 05/09/2024 10:11:45 AM FRAMING CARPENTER Ordering physician: TL KC Indication: SVT Technologist: [...] Final ---- Stress ECG Report: Stress Echo [facility] J1-5 Date of service: 05/09/2024 10:11:45 AM FRAMING CARPENTER Ordering physician: TL KC utilization review specialist: Candelaria [place] Fellow: Cindi Hinojosa MD (more content not included)... Normal [facility] JADA BY IFA WITH REFLEXon Nuclear Ab Ql (S) Negative Normal Negative [facility] Comment on above: Order Comment: Speci men Type: BLOOD SPECIMENOrdering Facility: [place] Address: [address] [place] [address] Result Comment: Anti -nuclear antibody test is used as an aid in diagnosis of systemic autoimmune diseases. Where positive and clinically warranted, follow-up using disease-specific testing is recommended. Low positive titers are not uncommon with advanced age, certain chronic infections, and malignancies among others. Test methodology: Indirect fluorescence immunoassay (IFA) using HEp-2 cells. Performed By: #### A NAIFR ####[facility] LABCLIA [id number] [place] [address] [place] CBC panel Auto (Bld)on 04-06 Erythrocyte distribution width (RBC) [Ratio] 13.3 % 11.5 - 15.0 % [facility] Hematocrit (Bld) [Volume fraction] 41.2 % 36.0 - 46.0 % [facility] Hemoglobin (Bld) [Mass/Vol] 13.2 g/dL 11.5 - 15.5 g/dL [facility] Interpretation and review of laboratory results Normal [facility] MCH (RBC) [Entitic mass] 30.6 pg 26.0 - 34.0 pg [facility] MCHC (RBC) [Mass/Vol] 32.0 g/dL 30.5 - 36.0 g/dL [facility] MCV (RBC) [Entitic vol] 95.4 fL 80.0 - 100.0 fL [facility] Nucleated RBC (Bld) [#/Vol] NINF [facility] Platelet mean volume (Bld) [Entitic vol] 9.6 fL 9.0 - 12.7 fL [facility] Platelets (Bld) [#/Vol] 324 10*3/uL [facility] RBC (Bld) [#/Vol] 4.32 10*6/uL 3.90 - 5.2 0 m/uL [facility] WBC (Bld) [#/Vol] 10.31 10*3/uL [facility] Erythrocyte distribution width (RBC) [Ratio] 13.3 % Normal 11.5-15.0 [facility] Comment on above: Order Comment: Speci men Type: BLOOD SPECIMENOrdering Facility: [place] Address: [address] [place] [address] Performed By: #### 5 8410-2 ####[facility] LABCLIA [id number] [address] STATES OF [facility] Hematocrit (Bld) [Volume fraction] 41.2 % Normal 36.0-46.0 [facility] Comment on above: Order Comment: Speci men Type: BLOOD SPECIMENOrdering Facility: [place] Address: [address] [place] [address] Performed By: #### 5 8410-2 ####[facility] LABCLIA [id number] [place] [address] [place] Hemoglobin (Bld) [Mass/Vol] 13.2 g/dL Normal 11.5-15.5 [facility] Comment on above: Order Comment: Speci men Type: BLOOD SPECIMENOrdering Facility: [place] Address: [address] [place] [address] Performed By: #### 5 8410-2 ####[facility] LABCLIA [id number] [place] [address] [place] MCH (RBC) [Entitic mass] 30.6 pg Normal 26.0-34.0 [facility] Comment on above: Order Comment: Speci men Type: BLOOD SPECIMENOrdering Facility: [place] Address: [address] [place] [address] Performed By: #### 5 8410-2 ####[facility] LABCLIA [id number] [place] [address] [place] MCHC (RBC) [Mass/Vol] 32.0 g/dL Normal 30.5-36.0 [facility] Comment on above: Order Comment: Speci men Type: BLOOD SPECIMENOrdering Facility: [place] Address: [address] [place] [address] Performed By: #### 5 8410-2 ####[facility] LABCLIA [id number] [place] [address] [place] MCV (RBC) [Entitic vol] 95.4 fL Normal 80.0-100.0 [facility] Comment on above: Order Comment: Speci men Type: BLOOD SPECIMENOrdering Facility: [place] Address: [address] [place] [address] Performed By: #### 5 8410-2 ####[facility]CLIA [id number] [place] [address] [place] Nucleated RBC (Bld) [#/Vol] 10*3/uL Normal <0.01 [facility] Comment on above: Order Comment: Speci men Type: BLOOD SPECIMENOrdering Facility: [place] Address: [address] [place] [address] Performed By: #### 5 8410-2 ####[facility] LABIA [id number] [place] [address] [place] Platelet mean volume (Bld) [Entitic vol] 9.6 fL Normal 9.0-12.7 [facility] Comment on above: Order Comment: Speci men Type: BLOOD SPECIMENOrdering Facility: [place] Address: [address] [place] [address] Performed By: #### 5 8410-2 ####[facility] LABIA [id number] [place] [address] [place] Platelets (Bld) [#/Vol] 324 10*3/uL Normal 150-400 [facility] Comment on above: Order Comment: Speci men Type: BLOOD SPECIMENOrdering Facility: [place] Address: [address] [place] [address] Performed By: #### 5 8410-2 ####[facility] LABIA [id number] [place] [address] [place] RBC (Bld) [#/Vol] 4.32 10*6/uL Normal 3.90-5.20 [facility] Comment on above: Order Comment: Speci men Type: BLOOD SPECIMENOrdering Facility: [place] Address: [address] [place] [address] Performed By: #### 5 8410-2 ####[facility] LABIA [id number] [place] [address] [place] WBC (Bld) [#/Vol] 10.31 10*3/uL Normal 3.70-11.00 [facility] Comment on above: Order Comment: Speci men Type: BLOOD SPECIMENOrdering Facility: [place] Address: [address] [place] [address] Performed By: #### 5 8410-2 ####[facility] LABCLIA [id number] [id number] CNOVon 04-06-2024 CNOV Office Visit (NORMAN ROUSSEAU MAI) RENETTA PLAZA ([id number]) 1965 F Date Time Provider Department 04/06/24 10:15 AM TL WALLER MAI During your visit today, we recorded the [...] PM Tl Waller MD 04/06/2024 3:48 PM [facility] Shushan [facility] SECTION OF HEART FAILURE and CARDIAC TRANSPLANT MEDICINE OUTPATIENT VISIT DATE April 06, 2024 OUTPATIENT VISIT TYPE New Patient PRIMARY CARE PHYSICIAN: Dread Cedillo [address] [place] [address] CHIEF COMPLAINT: Palpitations HISTORY OF PRESENT ILLNESS: 58 year old female with PMHx paroxysmal SVT, HTN, anxiety, former smoker, rheumatic fever, and arthritis who is here for palpitations 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 PMHx: includes SVT, HTN, anxiety, former smoker, rheumatic fever, and arthritis. Patient states she saw a storage garage manager in the past for palpitations who tried [...] EXPLORATORY LAPAROTOM (more content not included)... Normal [facility] Comprehensive metabolic 2000 panelon 04-06-2024 Albumin [Mass/Vol] 4.3 g/dL 3.9 - 4.9 g/dL [facility] ALP [Catalytic activity/Vol] 78 U/L 34 - 123 U/L [facility] ALT [Catalytic activity/Vol] 18 U/L 7 - 38 U/L [facility] Anion gap [Moles/Vol] 11 mmol/L 8 - 15 mmol/L [facility] AST [Catalytic activity/Vol] 16 U/L 13 - 35 U/L [facility] Bilirubin [Mass/Vol] 0.2 mg/dL 0.2 - 1 .3 mg/dL [facility] Calcium [Mass/Vol] 9.8 mg/dL 8.5 - 10. 2 mg/dL [facility] Chloride [Moles/Vol] 103 mmol/L 98 - 10 7 mmol/L [facility] CO2 [Moles/Vol] 27 mmol/L 22 - 30 mmol/L [facility] Creatinine [Mass/Vol] 0.81 mg/dL 0.58 - 0.96 mg/dL [facility] GFR/1.73 sq M.predicted among non-blacks MDRD (S/P/Bld) [Vol rate/Area] 83 mL/min/{1.73_m2} - PINF [facility] Comment on above: Estimated Glomerular Filtration Rate [...] [Mass/Vol] 91 mg/dL 74 - 99 mg/dL [facility] Comment on above: The [place] Diabete s Association (ADA) provides guidance for [...] Standards of Medical Care in Diabetes 2016, [place] Diabetes Association. Diabetes Care. 2016.39(Suppl 1). Potassium [Moles/Vol] 4.2 mmol/L 3.7 - 5.1 mmol/L [facility] Protein [Mass/Vol] 7.1 g/dL 6.3 - 8.0 g/dL [facility] Sodium [Moles/Vol] 141 mmol/L 136 - 144 mmol/L [facility] Urea nitrogen [Mass/Vol] 30 mg/dL High 7 - 21 mg/dL [facility] Albumin [Mass/Vol] 4.3 g/dL Normal 3.9-4.9 [facility] Comment on above: Order Comment: Speci men Type: BLOOD SPECIMENOrdering Facility: [place] Address: [address] [place] [address] Performed By: #### 5 0190-8, 83468-1, 67786-3, 3024-7 ####[facility] LABCLIA [id number] [place] [address] [place] ALP [Catalytic activity/Vol] 78 U/L Normal 34-123 [facility] Comment on above: Order Comment: Speci men Type: BLOOD SPECIMENOrdering Facility: [place] Address: [address] [place] [address] Performed By: #### 5 0190-8, 39723-7, 84463-3, 3024-7 ####[facility] LABCLIA [id number] [place] [address] [place] ALT [Catalytic activity/Vol] 18 U/L Normal 7-38 [facility] Comment on above: Order Comment: Speci men Type: BLOOD SPECIMENOrdering Facility: [place] Address: [address] [place] [address] Performed By: #### 5 0190-8, 59076-8, 84987-0, 3024-7 ####[facility] LABCLIA [id number] [place] [address] [place] Anion gap [Moles/Vol] 11 mmol/L Normal 8-15 [facility] Comment on above: Order Comment: Speci men Type: BLOOD SPECIMENOrdering Facility: [place] Address: [address] [place] [address] Performed By: #### 5 0190-8, 76578-7, 21854-3, 3024-7 ####[facility] LABCLIA [id number] [place] [address] [place] AST [Catalytic activity/Vol] 16 U/L Normal 13-35 [facility] Comment on above: Order Comment: Speci men Type: BLOOD SPECIMENOrdering Facility: [place] Address: [address] [place] [address] Performed By: #### 5 0190-8, 60894-6, 28239-0, 3024-7 ####[facility] LABCLIA [id number] [place] [address] [place] Bilirubin [Mass/Vol] 0.2 mg/dL Normal 0.2-1.3 [facility] Comment on above: Order Comment: Speci men Type: BLOOD SPECIMENOrdering Facility: [place] Address: [address] [place] [address] Performed By: #### 5 0190-8, 28498-7, 58151-7, 3024-7 ####[facility] LABCLIA [id number] [place] [address] [place] Calcium [Mass/Vol] 9.8 mg/dL Normal 8.5-10.2 [facility] Comment on above: Order Comment: Speci men Type: BLOOD SPECIMENOrdering Facility: [place] Address: [address] [place] [address] Performed By: #### 5 0190-8, 66951-4, 66846-2, 3024-7 ####[facility] LABCLIA [id number] [place] [address] [place] Chloride [Moles/Vol] 103 mmol/L Normal 98-107 [facility] Comment on above: Order Comment: Speci men Type: BLOOD SPECIMENOrdering Facility: [place] Address: [address] [place] [address] Performed By: #### 5 0190-8, 24297-7, 46876-5, 3024-7 ####[facility] LABCLIA [id number] [place] [address] [place] CO2 [Moles/Vol] 27 mmol/L Normal 22-30 [facility] Comment on above: Order Comment: Specyoan men Type: BLOOD SPECIMENOrdering Facility: [place] Address: [address] [place] [address] Performed By: #### 5 0190-8, 16192-9, 37482-7, 3024-7 ####[facility] LABCLIA [id number] [place] [address] [place] Creatinine [Mass/Vol] 0.81 mg/dL Normal 0.58-0.96 [facility] Comment on above: Order Comment: Janesi men Type: BLOOD SPECIMENOrdering Facility: [place] Address: [address] [place] [address] Performed By: #### 5 0190-8, 37275-9, 20575-4, 3024-7 ####[facility] [id number] [place] [address] [place] Creatinine and Glomerular filtration rate.predicted panel (S/P/Bld) 83 mL/min/1.73m??? Normal >=60 [facility] Comment on above: Order Comment: Brayan glaser Type: BLOOD SPECIMENOrdering Facility: [place] Address: [address] [place] [address] Result Comment: Bernadette mated Glomerular Filtration Rate [...] actual GFR. Performed By: #### 5 0190-8, 12421-7, 20507-2, 3024-7 ####[facility] LABCLIA [id number] [place] [id number] [place] Glucose [Mass/Vol] 91 mg/dL Normal 74-99 [facility] Comment on above: Order Comment: Speci men Type: BLOOD SPECIMENOrdering Facility: [place] Address: [address] [place] [address] Result Comment: The [place] [employer] (ADA) provides guidance for cutoff [...] Standards of Medical Care in Diabetes 2016, [place] [employer]. Diabetes Care. 2016.39(Suppl 1). Performed By: #### 5 0190-8, 91696-6, 81078-5, 3024-7 ####[facility] LABCLIA [id number] [place] [address] [place] Potassium [Moles/Vol] 4.2 mmol/L Normal 3.7-5.1 [facility] Comment on above: Order Comment: Speci men Type: BLOOD SPECIMENOrdering Facility: [place] Address: [address] [place] [address] Performed By: #### 5 0190-8, 04543-1, 86965-1, 3024-7 ####[facility] LABCLIA [id number] [place] [address] [place] Protein [Mass/Vol] 7.1 g/dL Normal 6.3-8.0 [facility] Comment on above: Order Comment: Speci men Type: BLOOD SPECIMENOrdering Facility: [place] Address: [address] [place] [address] Performed By: #### 5 0190-8, 80186-3, 11613-4, 3024-7 ####[facility] LABCLIA [id number] [place] [address] [place] Sodium [Moles/Vol] 141 mmol/L Normal 136-144 [facility] Comment on above: Order Comment: Speci men Type: BLOOD SPECIMENOrdering Facility: [place] Address: [address] [place] [address] Performed By: #### 5 0190-8, 15949-1, 46996-2, 3024-7 ####[facility] LABIA [id number] [place] [address] [place] Urea nitrogen [Mass/Vol] 30 mg/dL High - [facility] Comment on above: Order Comment: Speci men Type: BLOOD SPECIMENOrdering Facility: [place] Address: [address] [place] [address] Performed By: #### 5 0190-8, 70659-9, 61542-1, 3024-7 ####[facility] [id number] [place] [address] [place] ECG COMPLETEon 04-06-2024 ECG COMPLETE Ventricular Rate : 5 9 BPM Atrial Rate : 59 BPM P-R Interval : 128 ms QRS Duration : 80 ms Q-T Interval : 406 ms QTC Calculation(Bazett) : 401 ms Calculated P [place] : -17 degrees Calculated R [place] : -1 degrees Calculated T [place] : 24 degrees SINUS BRADYCARDIA LOW VOLTAGE QRS, CONSIDER PULMONARY DISEASE, PERICARDIAL EFFUSION, OR NORMAL VARIANT POOR R WAVE PROGRESSION NONSPECIFIC ST AND T WAVE ABNORMALITY ABNORMAL ECG Confirmed by MELL MILLS M.D.UGOPAL (81) on 05/05/2024 5:11:05 PM NAME : RENETTA PLAZA PID : [id number] : 1965 Gender : Female Race : ORD : [id number] Procedure Date : Apr 06 2024 09:42:30 Edit Date : May 05 2024 17:11:08 Diagnosis: SINUS BRADYCARDIA LOW VOLTAGE QRS, CONSIDER PULMONARY DISEASE, PERICARDIAL EFFUSION, OR NORMAL VARIANT POOR R WAVE PROGRESSION NONSPECIFIC ST AND T WAVE ABNORMALITY ABNORMAL ECG Confirmed by MELL MILLS M.D.UGOPAL (81) on 05/05/2024 5:11:05 PM Test Reason : Location : 314 : J14 J1-4 Overread By : MIKAYLA MILLS M.D. Edited By : LINA Taveras,MIKAYLA Referred By : , Acquired by : LUZMARIA WILKERSON [facility] F[facility]on 04-06-2024 Ferritin [Mass/Vol] 172.0 ng/mL 14.7 - 2 05.1 ng/mL [facility] Ferritin SerPl-mCncon 2023 Ferritin [Mass/Vol] 172.0 ng/mL Normal 14.7-205.1 [facility] Comment on above: Order Comment: Brayan lgaser Type: BLOOD SPECIMENOrdering Facility: [place] Address: [address] [place] [address] Performed By: #### 3 016-3, 2276-4 ####[facility] LABCLIA [id number] [place] [address] [place] Free T4 [Mass/Vol]on 024 Interpretation and review of laboratory results Normal [facility] Iron and Iron binding capaci ty panelon 04-06-2024 Interpretation and review of laboratory results Normal [facility] Iron [Mass/Vol] 56 ug/dL 41 - 186 ug/dL [facility] Iron binding capacity [Mass/Vol] 330 ug/dL 232 - 386 ug/dL [facility] Iron/TIBC [Molar ratio] 17.0 % 15.0 - 57.0 % [facility] Iron [Mass/Vol] 56 ug/dL Normal 41-186 [facility] Comment on above: Order Comment: Brayan glaser Type: BLOOD SPECIMENOrdering Facility: [place] Address: [address] [place] [address] Performed By: #### 5 0190-8, 29167-9, 33914-8, 3024-7 ####[facility] LABCLIA [id number] [place] [address] [place] Iron binding capacity [Mass/Vol] 330 ug/dL Normal 232-386 [facility] Comment on above: Order Comment: Speci men Type: BLOOD SPECIMENOrdering Facility: [place] Address: [address] [place] [address] [place] [address] Performed By: #### 5 0190-8, 39971-3, 79884-5, 7 ####[facility] LABCLIA [id number] [place] [id number] [place] Iron/TIBC [Molar ratio] 17.0 % Normal 15.0-57.0 [facility] Comment on above: Order Comment: Speci men Type: BLOOD SPECIMENOrdering Facility: [place] Address: [address] [place] [address] Performed By: #### 5 0190-8, 04288-4, 47940-4, 7 ####[facility] LABIA [id number] [place] [address] [place] NT PRO BNPon 04-06-2024 Natriuretic peptide.B prohormone N-Terminal [Mass/Vol] 275 pg/mL High NINF - 125 pg/mL [facility] NT-proBNP SerPl-mCncon 04-06 Natriuretic peptide.B prohormone N-Terminal [Mass/Vol] 275 pg/mL High <125 [facility] Comment on above: Order Comment: Speci men Type: BLOOD SPECIMENOrdering Facility: [place] Address: [address] [place], [place] [address] [address] Performed By: #### 5 0190-8, 37309-0, 36279-7, 7 ####[facility] LABCLIA [id number] [place] [id number] [place] No Panel Informationon 04-06 Interpretation and review of laboratory results Abnormal [facility] Interpretation and review of laboratory results Normal [facility] T4 FREE/FREE THYROXINEon Free T4 [Mass/Vol] 1.0 ng/dL 0.9 - 1.7 ng/dL [facility] T4 Free SerPl-mCncon 024 Free T4 [Mass/Vol] 1.0 ng/dL Normal 0.9-1.7 [facility] Comment on above: Order Comment: Speci men Type: BLOOD SPECIMENOrdering Facility: [place] Address: [address] [place] [address] Performed By: #### 5 0190-8, 98121-2, 97281-9, 3024-7 ####[facility] LABCLIA [id number] [place] [address] [place] THYROID STIMULATING HORMONEo n 04-06-2024 TSH Qn 1.430 m[IU]/L [facility] TSH SerPl-aCncon 04-06-2024 TSH Qn 1.430 m[IU]/L Normal 0.270-4.200 [facility] Comment on above: Order Comment: Speci men Type: BLOOD SPECIMENOrdering Facility: [place] Address: [address] [place] [address] Performed By: #### 3 016-3, 2276-4 ####[facility] LABCLIA [id number] [place] [address] [place] Basophil percentageOrdered B y: Darren De on 07-01-2023 Chloride [Moles/Vol] 106 mmol/L 98-107 [facility] Glucose [Mass/Vol] 117 mg/dL 74-106 [facility] Comment on above: Fasting Glucose resu lt from 100 to 125 mg/dL suggests IMPAIRED HOMEOSTASIS per A.D.A. criteria. Potassium [Moles/Vol] 4.0 mmol/L 3.5-5.1 [facility] Sodium [Moles/Vol] 142 mmol/L 136-145 [facility] Laboratory - Chemistry and C hemistry - challengeOrdered By: Darren De on 07-01-2023 CO2 [Moles/Vol] 29.0 mmol/L 21.0-32.0 [facility] Urea nitrogen/Creatinine [Mass ratio] 19.8 mg/mg 10-20 [facility] No Panel InformationOrdered By: Darren De on 11-15-2023 Estimated GFR (MDRD) Amer 87 mL/min >60 [facility] Comment on above: GFR Calc Estimated GFR (MDRD) Non-Af Amer 72 mL/min >60 [facility] Comment on above: Non- GFR Calc Serum or plasma calcium drea urement (mass/volume)Ordered By: Darren De on 07-01-2023 Calcium [Mass/Vol] 8.7 mg/dL 8.5-10.1 [facility] Serum or plasma creatinine m easurement (mass/volume)Ordered By: Darren De on 07-01-2023 Creatinine [Mass/Vol] 0.86 mg/dL 0.55-1.02 [facility] Comment on above: The validity of the calculated GFR & GFRAA in patients over 70 years has not been determined. Clinical correlation is essential. Serum or plasma urea nitroge n measurement (mass/volume)Ordered By: Darren De on 07-01-2023 Urea nitrogen [Mass/Vol] 17 mg/dL 7- [facility] Thin prep Papanicolaou smear with manual screeningOrdered By: Darren De on 07-01-2023 Thin prep Papanicolaou smear with manual screening 7 -15 [facility] Basophil percentageon 2021 Chloride [Moles/Vol] 104 mmol/L 98-107 [facility] Work Phone: Glucose [Mass/Vol] 107 mg/dL 74-106 [facility] Work Phone: Comment on above: Fasting Glucose resu lt from 100 to 125 mg/dL suggests IMPAIRED HOMEOSTASIS per A.D.A. criteria. Potassium [Moles/Vol] 3.7 mmol/L 3.5-5.1 [facility] Work Phone: Sodium [Moles/Vol] 137 mmol/L 136-145 [facility] Work Phone: WBC (Bld) [#/Vol] 5.9 10*3/uL 4.4-11.0 [facility] Work Phone: Blood erythrocytes count (nu mber/volume)on 01-22-2022 RBC (Bld) [#/Vol] 4.25 10*6/uL 4.2-5.4 [facility] Work Phone: Blood hemoglobin measurement (mass/volume)on 01-22-2022 Hemoglobin (Bld) [Mass/Vol] 13.3 g/dL 12.0-15.0 [facility] Work Phone: [phone] Blood platelet mean volumeon 01-22-2022 Platelet mean volume (Bld) [Entitic vol] 9.5 fL 6.2-12.0 [facility] Work Phone: [phone] Determination of erythrocyte mean corpuscular volume (MCV)on 01-22-2022 MCV (RBC) [Entitic vol] 93.4 fL 81-99 [facility] Work Phone: [phone] Hematocrit Auto (Bld) [Volum e fraction]on 01-22-2022 Hematocrit (Bld) [Volume fraction] 39.7 % 37-47 [facility] Work Phone: Laboratory - Chemistry and C hemistry - challengeon 01-22-2022 CO2 [Moles/Vol] 27.0 mmol/L 21.0-32.0 [facility] Work Phone: Magnesium [Mass/Vol] 2.1 mg/dL 1.6-2.6 [facility] Work Phone: T4 [Mass/Vol] 10.0 ug/dL 4.8-13.9 [facility] Work Phone: [phone] Urea nitrogen/Creatinine [Mass ratio] 18.1 mg/mg 10-20 [facility] Work Phone: [phone] Laboratory - Hematology and Cell countson 01-22-2022 Erythrocyte distribution width (RBC) [Entitic vol] 44.3 fL 35.1-43.9 [facility] Work Phone: [phone] Erythrocyte distribution width (RBC) [Ratio] 12.9 % 11.6-14.6 [facility] Work Phone: [phone] MCH (RBC) [Entitic mass] 31.3 pg 27.0-32.0 [facility] Work Phone: MCHC Auto (RBC) [Mass/Vol]on 01-22-2022 MCHC (RBC) [Mass/Vol] 33.5 g/dL 32-36 [facility] Work Phone: No Panel Informationon 01-22 Estimated GFR (MDRD) Amer 69 mL/min >60 [facility] Work Phone: Comment on above: GFR Calc Estimated GFR (MDRD) Non-Af Amer 57 mL/min >60 [facility] Work Phone: Comment on above: Non- GFR Calc Thyroid Stimulating Hormone (TSH) 1.11 uIU/mL 0.358-3.74 [facility] Work Phone: Platelets bldon 01-22-2022 Platelets (Bld) [#/Vol] 287 10*3/uL 150-450 [facility] Work Phone: Serum or plasma calcium drea urement (mass/volume)on 01-22-2022 Calcium [Mass/Vol] 9.2 mg/dL 8.5-10.1 [facility] Work Phone: Serum or plasma creatinine m easurement (mass/volume)on 01-22-2022 Creatinine [Mass/Vol] 1.05 mg/dL 0.55-1.02 [facility] Work Phone: Comment on above: The validity of the calculated GFR & GFRAA in patients over 70 years has not been determined. Clinical correlation is essential. Serum or plasma urea nitroge n measurement (mass/volume)on 01-22-2022 Urea nitrogen [Mass/Vol] 19 mg/dL 7-18 [facility] Work Phone: [phone] Thin prep Papanicolaou smear with manual screeningon 01-22-2022 Thin prep Papanicolaou smear with manual screening 6 5-15 [facility] Work Phone: [phone] Absolute lymphocyte counton 11-27-2021 Lymphocytes Auto (Unsp spec) [#/Vol] 4.19 10*3/uL 0.83-4.51 [facility] Work Phone: Basophil percentageon 2021 Basophils/100 WBC (Bld) 0.3 % 0-1 [facility] Work Phone: Chloride [Moles/Vol] 106 mmol/L 98-107 [facility] Work Phone: Eosinophils/100 WBC (Bld) 1.8 % 0-5 [facility] Work Phone: Glucose [Mass/Vol] 104 mg/dL 74-106 [facility] Work Phone: Comment on above: Fasting Glucose resu lt from 100 to 125 mg/dL suggests IMPAIRED HOMEOSTASIS per A.D.A. criteria. Neutrophils (Bld) [#/Vol] 4.0 10*3/uL 2.0-7.7 [facility] Work Phone: Neutrophils/100 WBC (Bld) 43.9 % 47-70 [facility] Work Phone: Potassium [Moles/Vol] 3.8 mmol/L 3.5-5.1 [facility] Work Phone: Sodium [Moles/Vol] 139 mmol/L 136-145 [facility] Work Phone: WBC (Bld) [#/Vol] 9.1 10*3/uL 4.4-11.0 [facility] Work Phone: Blood erythrocytes count (nu mber/volume)on 11-27-2021 RBC (Bld) [#/Vol] 4.83 10*6/uL 4.2-5.4 [facility] Work Phone: Blood hemoglobin measurement (mass/volume)on 11-27-2021 Hemoglobin (Bld) [Mass/Vol] 14.7 g/dL 12.0-15.0 [facility] Work Phone: Blood lymphocytes/100 leukoc yteson 11-27-2021 Lymphocytes/100 WBC (Bld) 46.1 % 19-41 [facility] Work Phone: Blood monocytes/100 leukocyt eson 11-27-2021 Monocytes/100 WBC (Bld) 7.7 % 0-10 [facility] Work Phone: [phone] Blood platelet mean volumeon 11-27-2021 Platelet mean volume (Bld) [Entitic vol] 9.6 fL 6.2-12.0 [facility] Work Phone: [phone] Determination of erythrocyte mean corpuscular volume (MCV)on 11-27-2021 MCV (RBC) [Entitic vol] 92.1 fL 81-99 [facility] Work Phone: [phone] Hematocrit Auto (Bld) [Volum e fraction]on 11-27-2021 Hematocrit (Bld) [Volume fraction] 44.5 % 37-47 [facility] Work Phone: [phone] Laboratory - Chemistry and C hemistry - challengeon 11-27-2021 CO2 [Moles/Vol] 28.0 mmol/L 21.0-32.0 [facility] Work Phone: [phone] Magnesium [Mass/Vol] 2.2 mg/dL 1.6-2.6 [facility] Work Phone: [phone] Urea nitrogen/Creatinine [Mass ratio] 15.7 mg/mg 10-20 [facility] Work Phone: [phone] Laboratory - Hematology and Cell countson 11-27-2021 Erythrocyte distribution width (RBC) [Entitic vol] 44.4 fL 35.1-43.9 [facility] Work Phone: [phone] Erythrocyte distribution width (RBC) [Ratio] 13.2 % 11.6-14.6 [facility] Work Phone: [phone] Immature granulocytes/100 WBC (Bld) 0.200 % 0.0-0.9 [facility] Work Phone: [phone] Comment on above: IG% - Immature Granu locytes (promyelocytes, myelocytes and metamyelocytes) > 1% indicates that a LEFT SHIFT is Present. MCH (RBC) [Entitic mass] 30.4 pg 27.0-32.0 [facility] Work Phone: Nucleated RBC/100 WBC (Bld) [Ratio] 0 % 0-5 [facility] Work Phone: MCHC Auto (RBC) [Mass/Vol]on 11-27-2021 MCHC (RBC) [Mass/Vol] 33.0 g/dL 32-36 [facility] Work Phone: No Panel Informationon 11-27 Estimated Creatinine Clearance Calc 62.83 ml/min [facility] Work Phone: [phone] GFR (MDRD) Amer 72 mL/min >60 [facility] Work Phone: [phone] Comment on above: GFR Calc Estimated GFR (MDRD) Non-Af Amer 59 mL/min >60 [facility] Work Phone: Comment on above: Non- GFR Calc Thyroid Stimulating Hormone (TSH) 1.42 uIU/mL 0.358-3.74 [facility] Work Phone: Platelets bldon 11-27-2021 Platelets (Bld) [#/Vol] 342 10*3/uL 150-450 [facility] Work Phone: Serum or plasma calcium drea urement (mass/volume)on 11-27-2021 Calcium [Mass/Vol] 9.2 mg/dL 8.5-10.1 [facility] Work Phone: Serum or plasma creatinine m easurement (mass/volume)on 11-27-2021 Creatinine [Mass/Vol] 1.02 mg/dL 0.55-1.02 [facility] Work Phone: Comment on above: The validity of the calculated GFR & GFRAA in patients over 70 years has not been determined. Clinical correlation is essential. Serum or plasma urea nitroge n measurement (mass/volume)on 11-27-2021 Urea nitrogen [Mass/Vol] 16 mg/dL 7-18 [facility] Work Phone: [phone] Thin prep Papanicolaou smear with manual screeningon 11-27-2021 Thin prep Papanicolaou smear with manual screening 5 5-15 [facility] Work Phone: No Panel Informationon 09-02 SARS-CoV-2 Antigen (Rapid) [facility] Work Phone: Vital Signs Date Time Vital Sign Value Performing Clinician Koko samaniegoy 05-19-2025 11:04-0400 Body height 170.18 cm Kitty Krystian [employer] Work Phone: [facility] 05-19-2025 11:04-0400 Body mass index (BMI) [Ratio] 31.3 kg/m2 Kitty Krystian [employer] Work Phone: [facility] 05-19-2025 11:04-0400 Body weight 90.71 kg Kitty Krystian [employer] Work Phone: [facility] 11-15-2024 11:04-0400 Body temperature 97.5 [degF] Kitty Krystian [employer] Work Phone: [facility] 11-15-2024 11:04-0400 Body weight 92.53 kg Kitty Krystian [employer] Work Phone: [facility] 11-15-2024 11:04-0400 Diastolic blood pressure 75 mm[Hg] Kitty Krystian [employer] Work Phone: [facility] 11-15-2024 11:04-0400 Heart rate 58 /min Kitty Krystian [employer] Work Phone: [facility] 11-15-2024 11:04-0400 Respiratory rate 14 /min Kitty Krystian [employer] Work Phone: [facility] 11-15-2024 11:04-0400 SaO2% (BldA) [Mass fraction] 97 % Kitty Krystian [employer] Work Phone: [facility] 11-15-2024 11:04-0400 Systolic blood pressure 103 mm[Hg] Kitty Krystian [employer] Work Phone: [facility] 08-30-2024 13:36-0500 Body temperature 98.1 [degF] Kitty Krystian [employer] Work Phone: [facility] 08-30-2024 13:36-0500 Body weight 93.44 kg Kitty Boland [employer] Work Phone: [facility] 08-30-2024 13:36-0500 Diastolic blood pressure 65 mm[Hg] Kitty Boland [employer] Work Phone: [facility] 08-30-2024 13:36-0500 Heart rate 72 /min Kitty Boland [employer] Work Phone: [facility] 08-30-2024 13:36-0500 Respiratory rate 16 /min Kitty Boland [employer] Work Phone: [facility] 08-30-2024 13:36-0500 SaO2% (BldA) [Mass fraction] 98 % Kitty Boland [employer] Work Phone: [facility] 08-30-2024 13:36-0500 Systolic blood pressure 107 mm[Hg] Kitty Boland [employer] Work Phone: [facility] 05-09-2024 13:09-0400 Body height 170.2 cm Johan Croft MD Work Phone: [facility] 05-09-2024 13:09-0400 Body mass index (BMI) [Ratio] 31.48 kg/m2 Johan Croft MD Work Phone: [facility] 05-09-2024 13:09-0400 Body weight 91.17 kg Johan Croft MD Work Phone: [facility] 05-09-2024 13:09-0400 Diastolic blood pressure 66 mm[Hg] Johan Croft MD Work Phone: [facility] 05-09-2024 13:09-0400 Heart rate 68 /min Johan Croft MD Work Phone: [facility] 05-09-2024 13:09-0400 Systolic blood pressure 110 mm[Hg] Johan Croft MD Work Phone: [facility] 04-06-2024 10:59-0400 Diastolic blood pressure 80 mm[Hg] Tl Kc MD Work Phone: [facility] 04-06-2024 10:59-0400 Systolic blood pressure 135 mm[Hg] Tl Kc MD Work Phone: [facility] 04-06-2024 10:56-0400 Body height 171.5 cm Tl Kc MD Work Phone: [facility] 04-06-2024 10:56-0400 Body mass index (BMI) [Ratio] 31.62 kg/m2 Tl Kc MD Work Phone: [facility] 04-06-2024 10:56-0400 Body weight 92.94 kg Tl Kc MD Work Phone: [facility] 04-06-2024 10:56-0400 Heart rate 60 /min Tl Kc MD Work Phone: [facility] 04-06-2024 10:56-0400 SaO2% (BldA) [Mass fraction] 98 % Tl Kc MD Work Phone: [facility] 06-16-2023 09:44-0400 Body height 170.[address] Dread Cedillo [facility] 06-16-2023 09:44-0400 Body mass index (BMI) [Ratio] 33.2 kg/m2 Dr. Derad Cedillo [facility] 06-16-2023 09:44-0400 Body weight 96.[address] Dread Cedillo [facility] 06-16-2023 09:44-0400 Diastolic blood pressure 84 mm[Hg] Dr. Dread Cedillo [facility] 06-16-2023 09:44-0400 Heart rate 72 /min Dr. Dread Cedillo [facility] 06-16-2023 09:44-0400 Respiratory rate 14 /min Dr. Dread Cedillo [facility] 06-16-2023 09:44-0400 Systolic blood pressure 144 mm[Hg] Dr. Dread Cedillo [facility] 12-05-2021 16:10-0400 Body height 170.[address] Dread Cedillo Work Phone: [facility] Work Phone: 12-05-2021 16:10-0400 Body mass index (BMI) [Ratio] 35.3 kg/m2 Dr. Dread Cedillo Work Phone: [facility] Work Phone: 12-05-2021 16:10-0400 Body weight 102.[address] Dread Cedillo Work Phone: [facility] Work Phone: 12-05-2021 16:10-0400 Diastolic blood pressure 88 mm[Hg] Dr. Dread Cedillo Work Phone: [facility] Work Phone: 12-05-2021 16:10-0400 Heart rate 68 /min Dr. Dread Cedillo Work Phone: [facility] Work Phone: 12-05-2021 16:10-0400 Respiratory rate 18 /min Dr. Dread Cedillo Work Phone: [facility] Work Phone: 12-05-2021 16:10-0400 Systolic blood pressure 136 mm[Hg] Dr. Dread Cedillo Work Phone: [facility] Work Phone: 11-27-2021 13:26-0400 Diastolic blood pressure 69 mm[Hg] Dr. Dread Cedillo Work Phone: [facility] Work Phone: 11-27-2021 13:26-0400 Heart rate 80 /min Dr. Dread Cedillo Work Phone: [facility] Work Phone: 11-27-2021 13:26-0400 Respiratory rate 18 /min Dr. Dread Cedillo Work Phone: [facility] Work Phone: 11-27-2021 13:26-0400 SaO2% (BldA) [Mass fraction] 99 % Dr. Dread Cedillo Work Phone: [facility] Work Phone: 11-27-2021 13:26-0400 Systolic blood pressure 139 mm[Hg] Dr. Dread Cedillo Work Phone: [facility] Work Phone: 11-27-2021 11:45-0400 Body height 175.[address] Dread Cedillo Work Phone: [facility] Work Phone: 11-27-2021 11:45-0400 Body mass index (BMI) [Ratio] 33.5 kg/m2 Dr. Dread Cedillo Work Phone: [facility] Work Phone: 11-27-2021 11:45-0400 Body temperature 96.6 [degF] Dr. Dread Cedillo Work Phone: [facility] Work Phone: 11-27-2021 11:45-0400 Body weight 102.[address] Dread Cedillo Work Phone: [facility] Work Phone: 11-07-2021 14:21-0400 Body mass index (BMI) [Ratio] 35.2 kg/m2 Dr. Dread Cedillo Work Phone: [facility] Work Phone: 11-07-2021 14:21-0400 Body temperature 98.2 [degF] Dr. Dread Cedillo Work Phone: [facility] Work Phone: 11-07-2021 14:21-0400 Body weight 102.[address] Dread Cedillo Work Phone: [facility] Work Phone: 11-07-2021 14:21-0400 Diastolic blood pressure 91 mm[Hg] Dr. Dread Cedillo Work Phone: [facility] Work Phone: 11-07-2021 14:21-0400 Heart rate 78 /min Dr. Dread Cedillo Work Phone: [facility] Work Phone: 11-07-2021 14:21-0400 Respiratory rate 18 /min Dr. Dread Cedillo Work Phone: [facility] Work Phone: 11-07-2021 14:21-0400 SaO2% (BldA) [Mass fraction] 98 % Dr. Dread Cedillo Work Phone: [facility] Work Phone: 11-07-2021 14:21-0400 Systolic blood pressure 132 mm[Hg] Dr. Dread Cedillo Work Phone: [facility] Work Phone: 09-24-2021 08:36-0500 Body mass index (BMI) [Ratio] 35.4 kg/m2 Dr. Dread Cedillo Work Phone: [facility] Work Phone: 09-24-2021 08:36-0500 Body weight 102.[address] Dread Cedillo Work Phone: [facility] Work Phone: 09-03-2021 12:40-0500 Body temperature 97.9 [degF] Dr. Dread Cedillo Work Phone: [facility] Work Phone: 09-03-2021 12:40-0500 Diastolic blood pressure 99 mm[Hg] Dr. Derad Cedillo Work Phone: [facility] Work Phone: 09-03-2021 12:40-0500 Heart rate 54 /min Dr. Dread Cedillo Work Phone: [facility] Work Phone: 09-03-2021 12:40-0500 Respiratory rate 18 /min Dr. Dread Cedillo Work Phone: [facility] Work Phone: 09-03-2021 12:40-0500 SaO2% (BldA) [Mass fraction] 100 % Dr. Dread Cedillo Work Phone: [facility] Work Phone: 09-03-2021 12:40-0500 Systolic blood pressure 143 mm[Hg] Dr. Dread Cedillo Work Phone: [facility] Work Phone: 09-03-2021 10:58-0500 Body mass index (BMI) [Ratio] 33.8 kg/m2 Dr. Dread Cedillo Work Phone: [facility] Work Phone: 09-03-2021 10:58-0500 Body weight [address] Dread Cedillo Work Phone: [facility] Work Phone: Encounters Encounter Date Encounter Type Care Provider Facility Start: 06-02-2025 ambulatory [facility] Facility:[facility] Start: 05-25-2025 ambulatory Juwan Simms Facility :[facility] Start: 05-22-2025 ambulatory [facility] Facility:[facility] Start: 05-19-2025 End: 05-19-2025 Patient encounter procedure Vania DAVIS -[facility] Work Phone: Start: 05-19-2025 End: 05-19-2025 ambulatory Kitty Boland [facility] Work Phone: -[facility] Start: 05-10-2025 End: 05-10-2025 ambulatory Kitty Boland [facility] Work Phone: -Radiology [facility] Start: 05-10-2025 End: 05-10-2025 Patient encounter procedure Vania DAVIS -Radiology [facility] Work Phone: Start: 05-10-2025 End: 05-10-2025 ambulatory Kitty Krystian Facility:[facility] Start: 03-09-2025 End: 03-09-2025 Patient encounter procedure Juwan Mendez CAMPBELL -[facility] Work Phone: Start: 03-09-2025 End: 03-09-2025 ambulatory Kitty Boland [facility] Work Phone: -[facility] Start: 01-19-2025 End: 01-19-2025 Orders Only Johan Croft MD Work Phone: Cardiology Comment on above: SVT (supraventricula r tachycardia) (HCC) (Primary Dx) Start: 01-18-2025 End: 01-18-2025 ambulatory Johan Croft MD Work Phone: Cardiology Start: 11-15-2024 End: 11-15-2024 Patient encounter procedure Marina DAVIS -[facility] Work Phone: Start: 11-15-2024 End: 11-15-2024 ambulatory Kitty Boland Facility:[facility] Start: 11-14-2024 End: 11-14-2024 ambulatory Kitty Boland [employer] [facility] Work Phone: [facility] Work Phone: Start: 11-14-2024 End: 11-14-2024 Patient encounter procedure Kitty Boland [facility] -[facility] Work Phone: Start: 11-14-2024 End: 11-14-2024 ambulatory Kitty Krystian Facility:[facility] Start: 11-12-2024 End: 11-17-2024 ambulatory [...] Start: 11-04-2024 End: 11-04-2024 ambulatory Kitty Boland [employer] [facility] Work Phone: [facility] Work Phone: Start: 11-04-2024 End: 11-04-2024 Patient encounter procedure Kitty Boland [facility] -Cat Scan, [facility] Work Phone: Start: 11-04-2024 End: 11-04-2024 ambulatory Kitty Boland Facility:[facility] Start: 10-24-2024 End: 10-24-2024 ambulatory Kitty Boland [employer] [facility] Work Phone: [facility] Work Phone: Start: 10-24-2024 End: 10-24-2024 Patient encounter procedure Kitty Boland [facility] -Ultrasound, [facility] Work Phone: Start: 10-24-2024 End: 10-24-2024 ambulatory Kitty Boland Facility:[facility] Start: 09-16-2024 ambulatory Jhon Rogers Facility:[facility] Start: 09-16-2024 Non-patient / Non-visit Dr. Jhon mcfadden MD -[facility] Start: 09-16-2024 End: 09-16-2024 Patient encounter procedure Marina DAVIS -Cardiovascular Services Work Phone: Start: 09-16-2024 End: 09-16-2024 ambulatory Marina Huertas Facility:[facility] Start: 09-05-2024 End: 09-05-2024 Patient encounter procedure Juwan Simms DO -[facility] Work Phone: Start: 09-05-2024 End: 09-05-2024 ambulatory [facility] Facility:[facility] Start: 09-02-2024 End: 09-02-2024 Telephone encounter Tl Kc MD Work Phone: Cardiology Comment on above: Appointment Start: 08-31-2024 End: 08-31-2024 Patient encounter procedure Juwan Mendez DO -Ultrasound, [facility] Work Phone: Start: 08-30-2024 End: 08-30-2024 Patient encounter procedure Marina DAVIS -[facility] Work Phone: Start: 08-30-2024 End: 08-31-2024 ambulatory [facility] Facility:[facility] Start: 08-24-2024 End: 08-24-2024 Patient encounter procedure Kitty Krystian [employer] [facility] -Radiology, [facility] Work Phone: Start: 08-24-2024 End: 08-24-2024 ambulatory [facility] Facility:[facility] Start: 07-26-2024 End: 07-26-2024 Patient encounter procedure [facility]C -Outpatient Breast Imaging Work Phone: Start: 07-26-2024 End: 07-26-2024 ambulatory [facility] Facility:[facility] Start: 06-14-2024 ambulatory [facility] Facility:[facility] Start: 05-10-2024 End: 05-10-2024 Telephone encounter Johan Croft MD Work Phone: Cardiology Comment on above: [facility] Start: 05-09-2024 End: 05-09-2024 Patient encounter procedure Johan Croft MD Work Phone: Cardiology Comment on above: Paroxysmal SVT (supr aventricular tachycardia) (HCC) (Primary Dx); SVT (supraventricular tachycardia) (HCC); Palpitations; Atypical chest pain; Atrial tachycardia (HCC) Start: 05-09-2024 End: 05-09-2024 ambulatory JOHAN CROFT Facility:[facility] Start: 05-09-2024 End: 05-09-2024 ambulatory TL KC Facility:[facility] Start: 04-06-2024 End: 04-06-2024 Orders Only [...] Fabien Kc Start: 11-17-2023 End: 11-17-2023 ambulatory [facility] Work Phone: Start: 11-17-2023 End: 11-17-2023 Patient encounter procedure [facility]-Radiology, [facility] Work Phone: Start: 07-01-2023 End: 07-01-[address] Dread Cedillo [facility] Work Phone: Start: 07-01-2023 End: 07-01-[address] Dread Cedillo [facility]-Laboratory Work Phone: Start: 06-24-2023 End: 06-24-[address] Dread Cedillo [facility] Work Phone: Start: 06-24-2023 End: 06-24-[address] Dread Cedillo [facility]-Ultrasound, [facility] Work Phone: Start: 06-16-2023 End: 06-16-[address] Dread Cedillo [facility] Work Phone: Start: 04-29-2023 End: 04-29-[address] Dread Cedillo [facility] Work Phone: Start: 06-26-2022 End: 06-26-2022 ambulatory [facility] Work Phone: Start: 06-26-2022 End: 06-26-2022 [facility] Start: 01-24-2022 End: 01-24-[address] Dread Cedillo Work Phone: [facility]-Pulmonary Services/Neurology Start: 01-22-2022 End: 01-22-[address] Dread Cedillo Work Phone: [facility] Start: 12-30-2021 Non-patient / Non-visit Dr. Butch Cedillo Work Phone: [facility] Start: 12-30-2021 End: 12-30-[address] [facility]read [facility] Start: 12-05-2021 End: 12-05-[address] Dread Cedillo Work Phone: [facility] Start: 11-27-2021 Follow-up status Dr. Dread pollack Work Phone: [facility] Start: 11-27-2021 End: 11-27-2021 Emergency department patient visit Dr. Dread Cedillo Work Phone: [facility]-Emergency Department Start: 11-07-2021 End: 11-07-[address] Dread Cedillo Work Phone: [facility] Start: 11-05-2021 End: 11-05-[address] Dread Cedillo Work Phone: [facility] Start: 09-24-2021 End: 09-24-[address] Dread Cedillo Work Phone: [facility] Start: 09-03-2021 Non-patient / Non-visit Dr. Butch Cedillo Work Phone: [facility] Start: 09-03-2021 End: 09-03-2021 Admission to same day surgery center Dr. Dread Cedillo Work Phone: [facility]-Endoscopy Start: 07-30-2021 End: 07-30-[address] Dread Cedillo Work Phone: [facility] Procedures Date Procedure Procedure Detail Performing Clinician Start: 05-10-2025 X-ray of lumbosacral spine Kitty Boland [employer] [facility] Work Phone: Start: 11-14-2024 US scan of thyroid Karo Boland [employer] [facility] Work Phone: Start: 11-04-2024 CT of soft tissues o f neck with contrast Kitty Boland [facility] Work Phone: Start: 10-24-2024 Ultrasonography of t hyroid and parathyroid Kitty Boland [facility] Work Phone: Start: 08-31-2024 Ultrasound elastogra phy of liver Kitty Boland [facility] Work Phone: Start: 08-24-2024 X-ray of foot, three or more views Kitty Boland [employer] [facility] Work Phone: Start: 07-26-2024 Screening mammography R solomonl Krystian [employer] [facility] Work Phone: Start: 11-17-2023 X-ray of lumbosacral [...] RSV Vaccine (1 - 1-dose 75+ series) [facility] Start: 04-06-2027 Diabetes Screening Diabetes Screenin g [facility] Start: 07-17-2025 End: 07-17-2025 Patient encounter procedure 07/17/2025 8:00 AM EST Office Visit Cardiology [address] [place], [place] [id number] Johan Croft MD [address] [place] [address] Paroxysmal SVT (supraventricular tachycardia) Cardiology Comment on above: Paroxysmal SVT (supr aventricular tachycardia) Start: 07-17-2025 End: 07-17-2025 ambulatory 07/17/2025 7:00 AM EST Procedure Cardiology [address] [place] [address] Paroxysmal SVT (supraventricular tachycardia) Cardiology Comment on above: Paroxysmal SVT (supr aventricular tachycardia) Start: 11-11-2024 End: 11-11-2024 ambulatory 11/11/2024 12:30 PM EDT [facility] Cardiology [address] [place] [id number] Tl Waller MD [address] [facility] [place] [place] [address] Dx: Chronic combined systolic and diastolic congestive heart failure Cardiology Comment on above: Dx: Chronic combined systolic and diastolic congestive heart failure Start: 11-03-2024 Urine microalbumin profile DTaP,Tdap,Td Vaccine (2 - Td or Tdap) [facility] Start: 05-09-2024 End: 05-09-2024 ambulatory 05/09/2024 1:15 PM EDT Results Only Cardiology [address] [place] [id number] DX: HEART FAILURE Cardiology Comment on above: DX: HEART FAILURE Start: 05-09-2024 End: 05-09-2024 Patient encounter procedure Cardiology Comment on above: DX: HEART FAILURE Start: 04-17-2024 Covid-19 Vaccine ( season) Covid-19 Vaccine ( season) [facility] Start: 04-17-2024 Influenza vaccination Influenza Vacc ine (#1) [facility] Start: 04-06-2024 End: 07-06-2024 JADA BY IFA WITH REFLEX [facility] Comment on above: Expected: 04/06/2024 , Expires: 07/06/2024 Start: 04-04-2024 End: 04-04-2024 Patient encounter procedure 04/04/2024 11:15 AM EDT Office Visit Cardiology [address] [id number] Tl Waller MD [address] [employer] [address] [address] [place], [place] [id number] Dx: Chronic combined systolic and diastolic congestive heart failure Cardiology Comment on above: Dx: Chronic combined systolic and diastolic congestive heart failure Start: 04-04-2024 End: 04-04-2024 ambulatory 04/04/2024 10:30 AM EDT Results Only Cardiology [address] [id number] CHF Cardiology Comment on above: CHF Start: 2023 RSV Vaccine (1 - 1-dose 60+ series) RSV Vaccine (1 - 1-dose 60+ series) [facility] Start: 04-17-2023 Covid-19 Vaccine ( season) Covid-19 Vaccine ( season) [facility] Start: 11-05-2021 Patient referral [facility] Work Phone: Start: 09-03-2021 Colonoscopy w/biopsy single/multiple COLONOSCOPY AND BIOPSY [facility] Work Phone: Start: 09-03-2021 Colsc flx w/rmvl of tumor polyp lesion snare tq COLONOSCOPY W/LESION REMOVAL [facility] Work Phone: Start: 2013 Pneumococcal Vaccine : 50+ (2 of 2 - PCV) Pneumococcal Vaccine: 50+ (2 of 2 - PCV) [facility] Start: 2013 Shingrix Vaccine (1 of 2) Shingrix Vaccine (1 of 2) [facility] Start: 01-19-2013 Screening for malignant neoplasm of breast Mammogram Screening [facility] Start: 11-15-2011 Diabetes Screening Diabetes Screenin g [facility] Start: 2008 Lipid panel Lipid Screening [facility] Start: 2008 Screening for malignant neoplasm of colon [facility] Start: 1981 Anxiety Screening Anxiety Screening [facility] Start: 1981 Hepatitis C screening Hepatitis C Sc reening [facility] Start: 1981 HIV screening HIV Screening [facility] End: 03-14-2025 ECG COMPLETE ECG COMPLETE ECG Routine Congestive heart failure, unspecified HF chronicity, unspecified heart failure type (HCC) 1 Occurrences starting 03/14/2024 until 03/14/2025 [facility] Work Phone: Comment on above: 1 Occurrences starti ng 03/14/2024 until 03/14/2025 End: 04-06-2025 ECG COMPLETE ECG COMPLETE ECG Routine SVT (supraventricular tachycardia) (HCC) 1 Occurrences starting 04/06/2024 until 04/06/2025 [facility] Work Phone: Comment on above: 1 Occurrences starti ng 04/06/2024 until 04/06/2025 End: 01-19-2026 ECG COMPLETE ECG COMPLETE ECG Routine SVT (supraventricular tachycardia) (HCC) 1 Occurrences starting 01/19/2025 until 01/19/2026 [facility] Work Phone: Comment on above: 1 Occurrences starti ng 01/19/2025 until 01/19/2026 MR Lumbar spine WO a nd W contrast IV [facility] OUTSIDE VENDOR CARDI AC OUTPATIENT EXTENDED RHYTHM RECORDING (WITHOUT TELEMETRY) OUTSIDE VENDOR CARDIAC OUTPATIENT EXTENDED RHYTHM RECORDING (WITHOUT TELEMETRY) Holter Routine SVT (supraventricular tachycardia) (HCC) Palpitations Ordered: 04/06/2024 [facility] Work Phone: Comment on above: Ordered: 04/06/2024 OUTSIDE VENDOR CARDI AC OUTPATIENT EXTENDED RHYTHM RECORDING (WITHOUT TELEMETRY) OUTSIDE VENDOR CARDIAC OUTPATIENT EXTENDED RHYTHM RECORDING (WITHOUT TELEMETRY) Holter Routine SVT (supraventricular tachycardia) (HCC) AF (paroxysmal atrial fibrillation) (HCC) Ordered: 11/17/2024 [facility] Work Phone: Comment on above: Ordered: 11/17/2024 Patient Education ED Understandi ng Supraventricular Tachycardia (SVT) Supraventricular Tachycardia [facility] Work Phone: Patient referral [facility] Work Phone: End: 04-06-2025 STRESS ECHO TREADMILL STRESS ECHO TREADMILL Cardiology Routine SVT (supraventricular tachycardia) (HCC) Palpitations 1 Occurrences starting 04/06/2024 until 04/06/2025 [facility] Comment on above: 1 Occurrences starti ng 04/06/2024 until 04/06/2025 Immunizations Immunization Date Immunization Notes Care Provider Dallin henry 07-11-2024 influenza, seasonal, injectable, preservative free Kitty Boland [employer] Work Phone: [facility] 07-11-2024 influenza virus vacc ine, unspecified formulation Tl Kc MD Work Phone: [facility] 05-20-2023 influenza, injectabl e, quadrivalent, preservative free [facility]. [facility] 05-20-2023 influenza virus vacc ine, unspecified formulation Tl Kc MD Work Phone: [facility] 06-09-2022 influenza, injectabl e, quadrivalent, preservative free Dr. Dread Cedillo [facility] 06-09-2022 influenza, seasonal, injectable [facility] Work Phone: 07-02-2021 influenza, injectabl e, quadrivalent, preservative free Dr. [place] Nguyen [facility] 07-02-2021 influenza, seasonal, injectable Dr. Dread Cedillo Work Phone: [facility] Work Phone: 06-21-2020 influenza, injectabl e, quadrivalent, preservative free Dr. [facility] 06-21-2020 influenza, seasonal, injectable Dr. Dread Cedillo Work Phone: [facility] Work Phone: 11-03-2014 tetanus toxoid, redu saira diphtheria toxoid, and acellular pertussis vaccine, adsorbed Dr. Dread Cedillo [facility] 05-28-2007 pneumococcal polysaccharide vaccine, 23 zachent Tl Kc MD Work Phone: [facility] Payers Date Payer Category Payer Self-pay [id number] 2023 Private Health Insurance [id number] 2023 Unknown [id number] Unknown [id number] Unknown [id number] [id number] Unknown [id number] [id number] Unknown [id number] [id number] Unknown [id number] [id number] Unknown [id number] 2.16.8 [id number] Unknown [id number] 2.16.8 [id number] Unknown [id number] 2.16.8 [id number] Unknown [id number] 2.16.8 [id number] Unknown [id number] 2.16.8 40.1.005005.3.579.2.462 Unknown [id number] 2.16.8 40.1.959280.3.579.2.462 Unknown [id number] 2.16.8 40.1.128660.3.579.2.462 Unknown [id number] 2.16.8 40.1.533654.3.579.2.462 Unknown [id number] 2.16.8 40.1.523872.3.579.2.462 Unknown [id number] 2.16.8 40.1.073455.3.579.2.462 Unknown [id number] 2.16.8 40.1.965091.3.579.2.462 Unknown [id number] 2.16.8 [id number] Unknown [id number] 2.16.8 [id number] Unknown [id number] 2.16.8 [id number] Social History Date Type Detail Facility [facility] Work Phone: Start: 11-27-2021 End: 06-16-2023 Tobacco smoking status [facility] Unknown if ever smoked [facility] Start: 07-29-2015 None [facility] Start: 07-29-2015 Spouse/ Signif icant Other [facility] Start: 07-29-2015 Non-smoker [facility] Start: 1965 Sex Assigned At Female [facility] Start: 11-03-2014 End: 03-01-2024 Tobacco smoking status NHIS Ex-smoker [facility] End: 11-03-2013 History of tobacco use Current smoker [facility] End: 11-03-2013 History of tobacco use Cigarette Smoker [facility] Start: 11-03-2014 End: 04-06-2024 Tobacco use and exposure Smokeless tobacco non-user [facility] Start: 03-13-2021 End: 05-09-2024 Alcohol intake Current non-drinker of alcohol (finding) [facility] Start: 03-13-2021 End: 04-06-2024 History of Social function [facility] Start: 03-13-2021 End: 04-06-2024 Tobacco use panel [facility] National Score (1-100), lower number is lower risk Not on file [facility] Start: 1965 Sex Assigned At Not on file [facility] Start: 04-06-2024 Tobacco Comment smokes 3 cigs daily. is trying to quit [facility] Start: 03-28-2024 Gender identity Identifies as female gender (finding) [facility] Start: 11-02-2024 End: 11-16-2024 Sex Female (finding) [facility] Goals Date Patient Goal Desired Activity /State Personal health goal Functional Status Date Assessment Result Facility 11-03-2014 Are you deaf, or do you have serious difficulty hearing No 11/03/2014 2:25 PM EDT Catalina Jovel MA No [facility] 11-03-2014 Are you blind, or do you have serious difficulty seeing, even when wearing glasses No 11/03/2014 2:25 PM EDT Catalina Jovel MA No [facility] 11-03-2014 Do you have serious difficulty walking or climbing stairs No 11/03/2014 2:25 PM EDT Catalina Jovel MA No [facility] 11-03-2014 Do you have difficul ty dressing or bathing No 11/03/2014 2:25 PM RICHARDT Catalina Jovel MA No [facility] 11-03-2014 Because of a physica l, mental, or emotional condition, do you have difficulty doing errands alone such as visiting a physician's office or shopping No 11/03/2014 2:25 PM EDT Catalina Jovel MA No [facility] Mental Status Date Assessment Result Facility 11-27-2021 Cognitive function Level Of Cons ciousness Awake;Alert;Appropriate;Fol lows Commands [facility] Work Phone: 09-03-2021 Cognitive function Level Of Cons ciousness Awake;Alert [facility] Work Phone: 09-03-2021 Cognitive function Voice/Name [facility] Work Phone: 11-03-2014 Because of a physica l, mental, or emotional condition, do you have serious difficulty concentrating, remembering, or making decisions No 11/03/2014 2:25 PM EDT Catalina Jovel MA No [facility] Clinical Notes 04-06-2024 to 05-10-2025 Note Date & Type Note Facility 05-10-2025 Radiology Diagnostic study note [facility] Imaging Services [address] [place], [place] [address] L/S Spine Min 4 Views MR#: [id number] Acct: [id number] Name: RENETTA PLAZA Rep #: [id number] : 1965 F 59 From: Malinda Gilman MD PCP: LETICIA Pruett Status: REG CLI Study:L/S Spine Min 4 Views Date of Exam: 05/10/25 Exam# [id number] Ordering Dr: Anthony Roberson EXAM: XR Lumbosacral Spine, 4 or 5 Views CLINICAL INDICATION: BACK PAIN TECHNIQUE: Frontal, lateral and bilateral oblique views of the lumbar spine. COMPARISON: XR Lumbosacral Spine dated 11/17/2023 FINDINGS: VERTEBRAE: Degenerative facet arthropathy throughout the lumbar spine, most prominent in the lower lumbar spine. Normal alignment. No acute fracture or significant dynamic instability. SACRUM/COCCYX: Unremarkable as visualized. No acute fracture. DISC SPACES: Degenerative disc disease throughout the lumbar spine. SOFT TISSUES: Unremarkable. RAD/L/S Spine Min 4 Views IMPRESSION: 1. No acute fracture or significant dynamic instability. 2. If symptoms persist, further evaluation with MRI is recommended. 3. Degenerative changes lumbar spine as described. Reading Location: [id number] CC: LETICIA Boland; SUSAN Joyce ~ Airplane Cover Maker: Signed [facility] 03-09-2025 Evaluation note Diagnosis Onset Date Resolution Diverticulitis acute March 09, 2025 2:24pm NAFLD (nonalcoholic fatty liver disease) acute March 09, 2025 2:24pm Abdominal pain chronic March 09, 2025 2:24pm Inguinal hernia chronic February 2:24pm [facility] Work Phone: 1(485) 139-628207-24-2025 Evaluation note* Diagnosis Onset Date Resolution Status Admit Date Diverticulitis acute March 09, 2025 2:24pm NAFLD (nonalcoholic fatty li sohail disease) acute March 09, 2025 2:24pm Abdominal pain chronic March 09, 2025 2:24pm Inguinal hernia chronic February 2:24pm Degenerative disc disease (D DD) of lumbar region with discogenic back pain acute May 10:37am Hx of lumbar discectomy acute O ct2024 10:37am Lumbar stenosis with neuroge alan claudication acute May 19 10:37am [facility] Work Phone: [phone] NoteHNO ID: [id number] Author: VANESSA MATIAS RN Service: ? Author [...] contact the patient. Left voice message.Vanessa Matias RNOhio[facility]06-04-2025 History of Present illness Narrative* Vanessa Matias RN - 01/18/2025 12:00 PM EDT Date: January 18, 2025 Time: 12:00 PM [...] voice message.Vanessa Matias RN documented in this encounterProtestant [facility]04-03-2025 Telephone encounter Note * Telephone Encounter - Vanessa Matias RN - 11/17/2024 7:43 AM EDT Date: November 17, 2024 Time: 7:43 AM The following orders/tests have been written down, read back and confirmed as ordered by Johan Croft MD . None of the EKGs show convincing atrial fibrillation, however there is a lot of noise and we can not rule it out. Patient should wear a two week Zio. Mychart message sent.Vanessa Matias RN [facility]04-03-2025 Miscellaneous Notes* Telephone Encounter - Vanessa Matias RN - 11/17/2024 7:43 AM EDT Date: November 17, 2024 Time: 7:43 AM The following orders/tests have been written down, read back and confirmed as ordered by Johan Croft MD . None of the EKGs show convincing atrial fibrillation, however there is a lot of noise and we can not rule it out. Patient should wear a two week Zio. Mychart message sent.Vanessa Matias RN documented in this encounterProtestant Hospital04-01-2025 Radiology Diagnostic study note [facility] Imaging Services [address] [place] [address] Thyroid MR#: [id number] Acct: [id number] Name: RENETTA PLAZA ANN Rep #: [id number] : 1965 F 59 From: Gris Goetz MD PCP: LETICIA Pruett Status: REG CLI Study:Thyroid Date of Exam: 11/14/24 Exam# [id number] Ordering Dr: Ra jose Boland PROCEDURE: THYROID [...] nodules which do not meet criteria for dedicatedfollow-up by ACR TI-RADS criteria. Reading Location: [id number] CC: LETICIA Boland ~ Airplane Cover Maker: Signed [facility]04-01-2025 Evaluation note* Diagnosis Onset Date Resolution Status Admit Date Varicose veins of both lower extremities acute November 15, 2024 10:55am [facility] Work Phone: 1(193) 174-677103-29-2025 NoteHNO ID: [id number] Author: JOHAN CROFT MD Service: ? Author [...] Johan Croft MD December 16, 2024 4:59 [facility]03-28-2025 NoteHNO ID: [id number] Author: TL WALLER MD Service: ? Author Type: Physician Type: Progress Notes Filed: 11/11/2024 12:54 Note Text: Heart, Vascular AND Thoracic [facility] Department of Cardiovascular Medicine TELEPHONE VISIT (audio [...] visit. 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 Either the patient or their legal retention representative has been informed of the risks and benefits of -- and alternatives to -- treatment through a remote evaluation andconsents to proceed with the evaluation remotely. Renetta Mateus Plaza has consented to this telephone encounter. 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 Croft who recommended medical management. Will continue withBB therapy with bisoprolol 5mg every day and lisinopril 5mg every day for BP control. PLAN AND RECOMMENDATIONS: -Follow up as needed with heart failure Total Time Spent: 11-20 minutes Tl Kc MD documented in this encounterProtestant Hospital03-21-2025 Radiology Diagnostic study note [facility] Imaging Services [address] [place] [address] Soft Tissue Neck WITH Contrast MR#: [id number] Acct: [id number] Name: RENETTA PLAZA ANN Rep #: [id number] : 1965 F 59 From: Maria Elena Alanis DO PCP: Kitty Krystian, BUSINESS ASST-C Status: REG CLI Study:Soft Tissue Neck WITH Contrast Date of Exam: 11/04/24 Exam# [id number] Ordering Dr: Ra jose Boland PROCEDURE: CT [...] short-term follow-up dedicated thyroid ultrasound. Reading Location[facility] CC: LETICIA Boland ~ Airplane Cover Maker: Signed [facility]03-11-2025 Radiology Diagnostic study note [facility] Imaging Services [address] [place], [place] [address] Head/Neck Soft Tissue MR#: [id number] Acct: [id number] Name: RENETTA PLAZA Rep #: [id number] : 1965 F 59 From: Hector Curry MD PCP: LETICIA Pruett Status: REG CLI Study:Head/Neck Soft Tissue Date of Exam: 10/24/24 Exam# [id number] Ordering Dr: Ra jose Boland PROCEDURE: HEAD/NECK [...] with contrast enhanced neck CT. Reading Location: [id number] CC: LETICIA Boalnd ~ Airplane Cover Maker: Signed [facility]01-14-2025 Evaluation note* Diagnosis Onset Date Resolution Status Admit Date Varicose veins of both lower extremities acute August 30 1:19pm NAFLD (nonalcoholic fatty liver disease) acute September 05 1:42pm Abdominal pain chronic September 052024 1:42pm Inguinal hernia chronic August 182024 1:42pm [facility] Work Phone: 1(522) 756-905701-14-2025 Evaluation note* Diagnosis Onset Date Resolution Status Admit Date Varicose veins of both lower extremities acute August 30 1:19pm NAFLD (nonalcoholic fatty liver disease) acute September 05 1:42pm Abdominal pain chronic September 052024 1:42pm Inguinal hernia chronic August 182024 1:42pm Varicose veins of both lower extremities acute November 15, 2024 10:55am [facility] Work Phone: 1([phone]) 744-812209-24-2024 Telephone encounter Note* Telephone Encounter - Loyd Leal - 05/10/2024 10:06 AM EDT Documentation scanned into EP outside database Scanned EKG into epic [facility]09-24-2024 Miscellaneous Notes* Telephone Encounter - Loyd Leal - 05/10/2024 10:06 AM EDT Documentation scanned into EP outside database Scanned EKG into epic documented in this encounterProtestant Hospital09-23-2024 NoteHNO ID: [id number] Author: JOHAN CROFT MD Service: ? Author Type: Physician Type: Progress Notes Filed: 05/09/2024 18:02 Note Text: Heart and Vascular [facility] Mateo Riggins Department of Cardiovascular Medicine SECTION OF CARDIAC PACING and ELECTROPHYSIOLOGY OUTPATIENT VISIT DATE May 09, 2024 OUTPATIENT VISIT TYPE CONSULTATION PRIMARY CARE PHYSICIAN: Dread Cedillo [address] [place] [address] REFERRING PHYSICIAN Tl Kc [address] [facility] [address] CHIEF COMPLAINT: SVT HISTORY OF PRESENT ILLNESS: [...] of 42 bpm, (more content not included)... [facility]09-23-2024 History of Present illness Narrative* Johan Croft MD - 05/09/2024 12:26 PM EDT Images from the original note were not included. Heart and Vascular [facility] Department of Cardiovascular Medicine SECTION OF CARDIAC PACING and ELECTROPHYSIOLOGY OUTPATIENT VISIT DATE May 09, 2024 OUTPATIENT VISIT TYPE CONSULTATION PRIMARY CARE PHYSICIAN: Dread Cedillo [address] [place] [address] REFERRING PHYSICIAN Tl Kc [address] Desk [address] [facility] [address] CHIEF COMPLAINT: SVT HISTORY OF PRESENT ILLNESS: [...] 5:59 PM This note was generated using Loaded Pocket recognition system. Please excuse any typographical errors. documented in this encounterProtestant Hospital08-21-2024 NoteHNO ID: [id number] Author: DONOVAN CABA EKG Tech Service: ? Author Type: Soil Engineer Type: Progress Notes Filed: 04/06/2024 14:42 Note Text: EVENT MONITOR DISPOSABLE PATCH INSTRUCTIONS Patient Name: Renetta Plaza Clinic Number: [id number] Skin prepped and cleansed with alcohol Patch secured to prepped area Monitor Activated Serial #: [id number] Patient Instructed: Prescribed order timeframe Bathing guidelines Usage of event button and diary documentation Return of monitor at the end of prescribed order Call with problems [phone] or [phone]. [phone] Patient expresses a good understanding of instructions STORMY MALONEOhio[facility]08-21-2024 History of Present illness Narrative* Donovan Caba EKG Tech - 04/06/2024 2:40 PM EDT EVENT MONITOR DISPOSABLE PATCH INSTRUCTIONS Patient Name: Renetta Plaza Clinic Number: [id number] Skin prepped and cleansed with alcohol Patch secured to prepped area Monitor Activated Serial #: [id number] Patient Instructed: Prescribed order timeframe Bathing guidelines Usage of event button and diary documentation Return of monitor at the end of prescribed order Call with problems [phone] or [phone]. [phone] Patient expresses a good understanding of instructions STORMY MALONE documented in this encounterProtestant Hospital08-21-2024 NoteEducation (CARDMN) RENETTA PLAZA ([id number]) 1965 F Date Time Provider Department 04/06/24 1:15 PM ARRHYTHMIA MONITORING LAB CARDMN Reason for Visit: Event [921] Cmt: Zio Primary Visit Diagnosis:SVT (supraventricular tachycardia) ([facility]) [I47.10] Other Visit Diagnosis:Palpitations [R00.2] During your [...] by mouth once daily. Encounter Status:Closed by DONOVAN GARCIA on 04/06/24[facility]08-21-2024 Instructions* Patient Instructions* Tl Waller MD - 04/06/2024 11:39 AM EDT Please schedule visit with electrophysiology and stress echocardiogram in the test desk trouble locator Go to second floor, J2-2 and picked edge sewing machine operator Zio patch Then, go to the lab in J1-4 (first floor) Start bisoprolol 2.5mg every day Follow up in 6 months documented in this encounterProtestant Hospital08-21-2024 History of Present illness Narrative* Tl Waller MD - 04/06/2024 10:15 AM EDT Images from the original note were not included. 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 PMHx: includes SVT, HTN, anxiety, former smoker, rheumatic fever, and arthritis. Patient states she saw a storage garage manager in the past for palpitations who tried [...] HYSTERECTOMY HX No date: LAMINECTOMY W/O FFD 1/ VERT SEG LUMBAR Comment: Laminectomy, lumbar, times [...] exercise, other non-medical management as above. MD Lulu [facility]My[facility] Section Of Heart Failure and Cardiac Transplant Medicine Heart and Vascular [facility] Desk [address] [place] [address] documented in this encounterProtestant Hospital08-21-2024 NoteHNO ID: [id number] Author: TL WALLER MD Service: ? Author Type: Physician Type: Progress Notes Filed: 04/06/2024 15:48 Note Text: Heart and Vascular 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 PMHx: includes SVT, HTN, anxiety, former smoker, rheumatic fever, and arthritis. 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 Author [...] Johan Croft MD April 26, 2024 5:14 [facility] Diagnosis Onset Date Resolution Status Abdominal pain acute GERD (gastroesophageal reflux disease) chronic Abdominal pain acute Inguinal hernia acute LLQ pain acute [facility] Work Phone: Evaluation note* Diagnosis Onset Date Resolution Status Abdominal pain acute GERD (gastroesophageal reflux disease) chronic Abdominal pain acute Inguinal hernia acute LLQ pain acute Chest pain in adult acute Palpitations acute SVT (supraventricular tachycardia) [facility] Work Phone: Evaluation note* Diagnosis Onset Date Resolution Status Abdominal pain acute Inguinal hernia acute LLQ pain acute Chest pain in adult acute Palpitations acute SVT (supraventricular tachycardia) [facility] Work Phone: Evaluation noteNo assessment information available [facility] Work Phone: Evaluation note* Diagnosis Onset Date Resolution Status NAFLD (nonalcoholic fatty liver disease) acute Abdominal pain chronic Inguinal hernia chronic Chest pain in adult chronic SVT (supraventricular tachycardia) chronic [facility] Work Phone: Evaluation note* Diagnosis Congestive heart failure, unspecified HF chronicity, unspecified heart failure type (HCC)- Primary documented in this encounter [facility] note* Diagnosis SVT (supraventricular tachycardia) (HCC)- Primary Other specified cardiac dysrhythmias documented in this encounter [facility] note* Diagnosis SVT (supraventricular tachycardia) (HCC)- Primary Other specified cardiac dysrhythmias Palpitations documented in this encounter [facility] note* Diagnosis SVT (supraventricular tachycardia) (HCC)- Primary Other specified cardiac dysrhythmias Palpitations Paroxysmal SVT (supraventricular tachycardia) (HCC) Paroxysmal supraventricular tachycardia Atypical chest pain Other chest pain Shortness of breath documented in this encounter [facility] note* Diagnosis Paroxysmal SVT (supraventricular tachycardia) (HCC)- Primary Paroxysmal supraventricular tachycardia SVT (supraventricular tachycardia) (HCC) Other specified cardiac dysrhythmias Palpitations Atypical chest pain Other chest pain Atrial tachycardia (HCC) Other specified cardiac dysrhythmias documented in this encounter [facility] note* Diagnosis Palpitations- Primary SVT (supraventricular tachycardia) (HCC) Other specified cardiac dysrhythmias documented in this encounter [facility] note* Diagnosis SVT (supraventricular tachycardia) (HCC)- Primary Other specified cardiac dysrhythmias AF (paroxysmal atrial fibrillation) (HCC) Atrial fibrillation documented in this encounter [facility] note* Diagnosis SVT (supraventricular tachycardia) (HCC)- Primary Other specified cardiac dysrhythmias [facility] Work Phone: [facility] Dis[facility] instructions[facility] Work Phone: Reason for referral (narrative)No reason for referral information availableSelect [facility] Work Phone: Chief Complaint and Reason for [...] ASSESS NODULES SEEN ON RECENT CT SCAN [facility] 2024 1:05pm 8-12 WK FU November 15, [...] ASSESS NODULES SEEN ON RECENT CT SCAN [facility] 2024 1:05pm 8-12 WK FU November 15, 2024 10:5 5am 3 M FU March 09, 2025 2:24 pm Reason for Visit Admit Date Varicose veins of both lower extremities November 15, 2024 10:55am Chief Complaint Admit Date 3 M FU March 09, 2025 2:24 pm LUMBAR SPINE May 19, 2025 10 :37am Reason for Visit Admit Date Diverticulitis March 09, 2025 2:24 pm NAFLD (nonalcoholic fatty liver disease) March 09, 2025 2:24pm Abdominal pain March 09, 2025 2:24 pm Inguinal hernia March 09, 2025 2:24 pm Reason for Visit Admit Date Diverticulitis March 09, 2025 2:24 pm NAFLD (nonalcoholic fatty liver disease) March 09, 2025 2:24pm Abdominal pain March 09, 2025 2:24 pm Inguinal hernia March 09, 2025 2:24 pm Degenerative disc disease (D DD) of lumbar region with discogenic back pain May 19, 2025 10:37am Hx of lumbar discectomy May 19 10:37am Lumbar stenosis with neurogenic claudica tion May 19, 2025 10:37am Advance Directives No Advanced Directives Records Found Advance Directive Response Recorded Date/ Time Advance Directives No July 9:06pm Living Will Yes August 29 4:14pm Power of Lamp Shade Assembler Yes August 29, 2021 4:14pm Advance Directive Response Recorded Date/ Time Advance Directives No July 8:06pm Living Will Yes August 29 3:14pm Power of Lamp Shade Assembler Yes August 29, 2021 3:14pm Advance Directive Response Recorded Date/ Time Living Will Yes August 29 4:14pm Do you have a Healthcare Power of Lamp Shade Assembler? Yes August 29, 2021 4:14pm Advance Directives No July 9:06pm Advance Directive Response Recorded Date/ Time Advance Directives No July 9:06pm Reason for Referral Specialty Diagnoses / Procedures Referred By Contac t Referred To [facility] VASCULAR TABIONA Diagnoses Congestive heart failure, unspecified HF chronicity, unspecified heart failure type (HCC) Procedures ECG COMPLETE ECG ROUTINE ECG W/LEAST 12 LDS W/I&R Tl Waller MD [address] [place] [address] [place] [id number] [place] [address] Referral ID Status Reason Start Date Expiration Date V isits Requested Visits Authorized [id number] Closed Auto-Generate d Referral 03/14/2024 03/14/2025 1 1 Specialty Diagnoses / Procedures Referred By Contac t Referred To [facility] VASCULAR TABIONA Diagnoses SVT (supraventricular tachycardia) ([facility]) Procedures ECG COMPLETE ECG ROUTINE ECG W/LEAST 12 LDS W/I&R Tl Waller MD [address] [place] [address] [place] [id number] [place] [address] Referral ID Status Reason Start Date Expiration Date V isits Requested Visits Authorized [id number] Closed Auto-Generate d Referral 04/06/2024 04/06/2025 1 1 Specialty Diagnoses / Procedures Referred By Contac t Referred To [facility] VASCULAR TABIONA Procedures CARDIOVASCULAR MEDICINE OP FOLLOW UP APPT ORDER Tl Waller MD [address] [place] [address] [place] [id number] [address] Referral ID Status Reason Start Date Expiration Date Visits Requested Visits Authorized [id number] Ref Not Required PCP Requested Referral 10/07/2024 04/06/2025 1 1 Specialty Diagnoses / Procedures Referred By Contac t Referred To Contact Diagnoses SVT (supraventricular tachycardia) (HCC) Palpitations Procedures CONSULT TO ELECTROPHYSIOLOGY OFFICE/OUTPATIENT [facility] 60 MINUTES Tl aWller MD [address] [address] Referral ID Status Reason Start Date Expiration Date Visits Requested Visits Authorized [id number] Authorized PCP Requested Referral 04/06/2024 04/06/2025 1 1 Specialty Diagnoses / Procedures Referred By Contac t Referred To Contact [facility] VASCULAR TABIONA Diagnoses SVT (supraventricular tachycardia) (HCC) Palpitations Procedures STRESS ECHO TREADMILL ECHO TTHRC R-T 2D W/WO M-MODE COMPLETE REST&ST Tl Waller MD [address] [facility] [place] [address] [place] [phone] [place] [address] Referral ID Status Reason Start Date Expiration Date Visits Requested Visits Authorized [id number] Authorized Auto-Generat ed Referral 05/09/2024 08/16/2024 1 1 Specialty Diagnoses / Procedures Referred By Contac t Referred To Contact [facility] VASCULAR [facility] Procedures CARDIOVASCULAR MEDICINE OP FOLLOW UP APPT ORDER Johan Croft MD [address] [place] [address] [facility] [place] [address] [place] [address] Referral ID Status Reason Start Date Expiration Date Visits Requested Visits Authorized [id number] Ref Not Required PCP Requested Referral 02/08/2025 [...] Care Provider, Referring Provider Active Darren De BUSINESS ASST, BUSINESS ASST-C Attending Provider Active Team Status: Inactive Member Role Status Dates Dr. Juwan Simms DO Attending Provider, Referring Provider Active LETICIA Pruett Primary Care Provider Active Team Status: Inactive Member Role Status Dates LETICIA Pruett Primary Care Provider Active Darren De NP, BUSINESS ASST-C Attending Provider, Referring Pro vider Active Team Status: Inactive Member Role Status Dates LETICIA Pruett Primary Care Provide r, Attending Provider, Referring Provider Active Tree Surgeon Relationship Specialty Start Date End Date Dread Cedillo MD [address] [place] [address] PCP - General Family Medicine 02/14/21 Tree Surgeon Relationship Specialty Start Date End Date Dread Cedillo MD [address] [place] [id number] PCP - General Family Medicine 02/14/21 Tree Surgeon Relationship Specialty Start Date End Date Dread Cedillo MD [address] [place] [address] PCP - General Family Medicine 02/14/21 Tree Surgeon Relationship Specialty Start Date End Date Dread Cedillo MD [address] [place] [address] PCP - General Family Medicine 02/14/21 Tree Surgeon Relationship Specialty Start Date End Date Dread Cedillo MD [address] [place] [address] PCP - General Family Medicine 02/14/21 Tree Surgeon Relationship Specialty Start Date End Date Dread Cedillo MD [address] [place] [address] PCP - General Family Medicine 02/14/21 Tree Surgeon Relationship Specialty Start Date End Date Dread Cedillo MD [address] [place] [address] PCP - General Family Medicine 02/14/21 Tree Surgeon Relationship Specialty Start Date End Date Dread Cedillo MD [address] [place] [address] PCP - General Family Medicine 02/14/21 Tree Surgeon Relationship Specialty Start Date End Date Dread Cedillo MD [address] [place] [address] PCP - General Family Medicine 02/14/21 Team Status: Active Member Role Status Dates Kitty Krystian , BUSINESS ASST-C Primary Care Provider Active Team Status: Inactive Member Role Status Dates Kitty Boland , BUSINESS ASST-C Primary Care Provider Active Start: July 26, 2024 End: July 26, 2024 Kitty Boland , BUSINESS ASST-C Attending Provider Active St art: July 26, 2024 End: July 26, 2024 Kitty Boland , BUSINESS ASST-C Referring Provider Active St art: July 26, 2024 End: July 26, 2024 Team Status: Inactive Member Role Status Dates Kitty Boland , BUSINESS ASST-C Primary Care Provider Active Start: August 24, 2024 End: August 24, 2024 Kitty Boland , BUSINESS ASST-C Attending Provider Active St art: August 24, 2024 End: August 24, 2024 Kitty Boland , BUSINESS ASST-C Referring Provider Active St art: August 24, 2024 End: August 24, 2024 Team Status: Inactive Member Role Status Dates Kitty Boland , BUSINESS ASST-C Primary Care Provider Active Start: August 30, 2024 End: August 30, 2024 Kitty Boland , BUSINESS ASST-C Referring Provider Active St art: August 30, 2024 End: August 30, 2024 SUSAN Alvarado Attending Provider Active Star t: August 30, 2024 End: August 30, 2024 Team Status: Inactive Member Role Status Dates Kitty Boland , BUSINESS ASST-C Primary Care Provider Active Start: August 31, 2024 End: August 31, 2024 Dr. Juwan Simms DO Attending Provider Active Start: August 31, 2024 End: August 31, 2024 Dr. Juwan Simms DO Referring Provider Active Start: August 31, 2024 End: August 31, 2024 Team Status: Inactive Member Role Status Dates Kitty Boland , BUSINESS ASST-C Primary Care Provider Active Start: September 05, 2024 End: September 05, 2024 Kitty Boland , BUSINESS ASST-C Referring Provider Active St art: September 05, 2024 End: September 05, 2024 Dr. Juwan Simms DO Attending Provider Active Start: September 05, 2024 End: September 05, 2024 Team Status: Inactive Member Role Status Dates Kittyelian Boland , BUSINESS ASST-C Primary Care Provider Active Start: September 16, 2024 End: September 16, 2024 SUSAN Alvarado Attending Provider Active Star t: September 16, 2024 End: September 16, 2024 SUSAN Alvarado Referring Provider Active Star t: September 16, 2024 End: September 16, 2024 Team Status: Active Member Role Status Dates Kitty Boland BUSINESS ASST-C Primary Care Provider Active Start: September 16, 2024 Dr. Jhon Rogers MD Attending Provider Active S tart: September 16, 2024 SUSAN Alvarado Referring Provider Active Star t: September 16, 2024 Team Status: Inactive Member Role Status Dates Kittyelian Boland BUSINESS ASST-C Primary Care Provider Active Start: October 24, 2024 End: October 24, 2024 Kittyelian Boland BUSINESS ASST-C Attending Provider Active St art: October 24, 2024 End: October 24, 2024 Kittyelian Boland , BUSINESS ASST-C Referring Provider Active St art: October 24, 2024 End: October 24, 2024 Team Status: Inactive Member Role Status Dates Kittyelian Boland BUSINESS ASST-C Primary Care Provider Active Start: November 04, 2024 End: November 04, 2024 Kitty Boland BUSINESS ASST-C Attending Provider Active St art: November 04, 2024 End: November 04, 2024 Kittyelian Boland , BUSINESS ASST-C Referring Provider Active St art: November 04, 2024 End: November 04, 2024 Team Status: Inactive Member Role Status Dates Kittyelian Boland , BUSINESS ASST-C Primary Care Provider Active Start: November 14, 2024 End: November 14, 2024 Kitty Boland , BUSINESS ASST-C Attending Provider Active St art: November 14, 2024 End: November 14, 2024 Kitty Boland , BUSINESS ASST-C Referring Provider Active St art: November 14, 2024 End: November 14, 2024 Team Status: Inactive Member Role Status Dates Kittyelian Boland , BUSINESS ASST-C Primary Care Provider Active Start: November 15, 2024 End: November 15, 2024 Kittyelian Boland , BUSINESS ASST-C Referring Provider Active St art: November 15, 2024 End: November 15, 2024 SUSAN Alvarado Attending Provider Active Star t: November 15, 2024 End: November 15, 2024 Tree Surgeon Relationship Specialty Start Date End Date Dread Cedillo MD [address] [place] [address] PCP - General Family Medicine 02/14/21 Tree Surgeon Relationship Specialty Start Date End Date Dread Cedillo MD [address] [place] [address] PCP - General Family Medicine 02/14/21 Tree Surgeon Relationship Specialty Start Date End Date Dread Cedillo MD [address] [place] [address] PCP - General Family Medicine 02/14/21 Team Status: Active Member Role/Relationship Status Dates Kitty Boland NP-C Primary Care Provider Active Team Status: Inactive Member Role/Relationship Status Dates Kitty Boland NP-C Primary Care Provider Active Start: November 14, [...] 2024 End: November 15, 2024 Kitty Boland NP-C Referring Provider Active St art: November 15, [...] End: March 09, 2025 Dr. Juwan Simms DO Attending Provider Active Start: March 09, 2025 End: March 09, 2025 Team Status: Active Member Role/Relationship Status Dates Kitty Boland NP-C Primary care physician Active Team Status: Inactive Member Role/Relationship Status Dates Kitty Krystian , BUSINESS ASST-C Primary care physician Active Start: March 09, 2025 End: March 09, 2025 Kitty Boland , BUSINESS ASST-C Referring Provider Active St art: March 09, 2025 End: March 09, 2025 Dr. Juwan Simms , Attending physician Active Start: March 09, 2025 End: March 09, 2025 Team Status: Active Member Role/Relationship Status Dates Kitty Boland BUSINESS ASST-C Primary care physician Active Start: May 10, 2025 SUSAN Joyce Attending physician Active Sta rt: May 10, 2025 SUSAN Joyce Referring Provider Active Star t: May 10, 2025 Team Status: Inactive Member Role/Relationship Status Dates Kitty Boland BUSINESS ASST-C Primary care physician Active Start: May 19, 2025 End: May 19, 2025 Kitty Boland , BUSINESS ASST-C Referring Provider Active St art: May 19, 2025 End: May 19, 2025 SUSAN Joyce Attending physician Active Sta rt: May 19, 2025 End: May 19, 2025 Team Status: Inactive Member Role/Relationship Status Dates Kitty Boland BUSINESS ASST-C Primary care physician Active Start: May 10, 2025 End: May 10, 2025 SUSAN Joyce Attending physician Active Sta rt: May 10, 2025 End: May 10, 2025 SUSAN Joyce Referring Provider Active Star t: May 10, 2025 End: May 10, 2025 Source Comments (unrecognize d section and content) In the event this informatio n is protected by the Federal Confidentiality of Alcohol and Drug Abuse Patient Records regulations: The Federal rules restrict any use of the information to criminally investigate or prosecute any alcohol or drug abuse patient.[facility] the event this information is protected by the Federal Confidentiality of Alcohol and Drug Abuse Patient Records regulations: The Federal rules restrict any use of the information to criminally investigate or prosecute any alcohol or drug abuse patient.[facility] the event this information is protected by the Federal Confidentiality of Alcohol and Drug Abuse Patient Records regulations: The Federal rules restrict any use of the information to criminally investigate or prosecute any alcohol or drug abuse patient.[facility] the event this information is protected by the Federal Confidentiality of Alcohol and Drug Abuse Patient Records regulations: The Federal rules restrict any use of the information to criminally investigate or prosecute any alcohol or drug abuse patient.[facility] Hospital[facility] the event this information is protected by the Federal Confidentiality of Alcohol and Drug Abuse Patient Records regulations: The Federal rules restrict any use of the information to criminally investigate or prosecute any alcohol or drug abuse patient.[facility] the event this information is protected by the Federal Confidentiality of Alcohol and Drug Abuse Patient Records regulations: The Federal rules restrict any use of the information to criminally investigate or prosecute any alcohol or drug abuse patient.[facility] the event this information is protected by the Federal Confidentiality of Alcohol and Drug Abuse Patient Records regulations: The Federal rules restrict any use of the information to criminally investigate or prosecute any alcohol or drug abuse patient.[facility] Hospital[facility] the event this information is protected by the Federal Confidentiality of Alcohol and Drug Abuse Patient Records regulations: The Federal rules restrict any use of the information to criminally investigate or prosecute any alcohol or drug abuse patient.[facility] Hospital[facility] the event this information is protected by the Federal Confidentiality of Alcohol and Drug Abuse Patient Records regulations: The Federal rules restrict any use of the information to criminally investigate or prosecute any alcohol or drug abuse patient.[facility] the event this information is protected by the Federal Confidentiality of Alcohol and Drug Abuse Patient Records regulations: The Federal rules restrict any use of the information to criminally investigate or prosecute any alcohol or drug abuse patient.[facility] HospitalIn the event this information is protected by the Federal Confidentiality of Alcohol and Drug Abuse Patient Records regulations: The Federal rules restrict any use of the information to criminally investigate or prosecute any alcohol or drug abuse patient.[facility] HospitalIn the event this information is protected by the Federal Confidentiality of Alcohol and Drug Abuse Patient Records regulations: The Federal rules restrict any use of the information to criminally investigate or prosecute any alcohol or drug abuse patient.[facility] Reason for Visit (unrecogniz ed section and content) Reason Comments Event Zio Specialty Diagnoses / Procedures Referred By Contac t Referred To Contact Cardiology / CARDIOVASCULAR MEDICINE Diagnoses SVT (supraventricular tachycardia) (HCC) Palpitations Dx: SVT (supraventricular tachycardia) (HCC) [I47.10 (ICD-10-CM)]; Palpitations [R00.2 (ICD-10-CM)] Procedures XTRNL ECG & 48 HR RECORDING ZIO PATCH Tl Waller MD [address] [facility] [address] [place] [address] Referral ID Status Reason Start Date Expiration Date V isits Requested Visits Authorized [id number] Closed Patient Cleared - Admin/Chairm an/Director advise [...] NEW CHF PATIENT Self Tl Waller MD [address] [place] [id number] Referral ID Status Reason Start Date Expiration Date Visits Re quested Visits Authorized [id number] Closed 04/06/2024 08/16/2024 1 1 Specialty Diagnoses / Procedures Referred By Contac t Referred To Contact Diagnoses SVT (supraventricular tachycardia) (HCC) Palpitations Procedures CONSULT TO ELECTROPHYSIOLOGY OFFICE/OUTPATIENT NEW HIGH MDM 60 MINUTES Tl Waller MD [address] [employer] [address] [place] [id number] Referral ID Status Reason Start Date Expiration Date V isits Requested Visits Authorized [id number] Closed PCP Requested Referral 04/06/2024 04/06/2025 1 1 Reason Comments Received Outside Medical Records Reason Comments Appointment Reason Comments Follow Up INFORMATION SOURCE (unrecogn ized section and content) DATE CREATED AUTHOR 01/19/2025 [facility] DATE CREATED AUTHOR AUTHOR'S HIEN FRAGOSO 05/31/2025 [facility] FOR RECORDS PERTAINING TO PATIENTS WHO ARE [...] THE PRIMARY CLINICAL RECORDS. [facility]. provides no warranty or guarantee of the accuracy or completeness of information in this document.
== END | disposition home or self-care (01) ==
LOC: MRI 12:11
PROVIDERS: PCP Nurse Practitioner Family; Referring Provider Student in an Organized Health Care Education/Training Program; Visit Provider Student in an Organized Health Care Education/Training Program
DX: M48.062 Spinal stenosis, lumbar region with neurogenic claudication (principal); M51.362 Other intervertebral disc degeneration, lumbar region with discogenic back pain and lower extremity pain
CPT/HCPCS: 72158; A9575